=== PATIENT | male | born 1960 | race American Indian/Alaskan Native ===

== ENCOUNTER 2017-05-24 06:42 | Emergency (ER) | payer MEDICARE ==
--- NOTE | 2017-05-24 06:54 | Emergency Department Report ---
ED Neuro Deficit HPI - General Stated Complaint: UNBALANCED Time Seen by Provider: 05/24/17 06:51 Source: patient Mode of arrival: Ambulatory Limitations: No Limitations - History of Present Illness Initial Comments: 57-year-old male presents to the Hospital of possible strokelike symptoms. Upon awakening at 5:30 AM patient has slurred speech and unsteady balance. Patient also has a history of grand mal seizures and has a right-sided tongue abrasion. No signs of urinary incontinence. Last seizure was 3-4 weeks ago. Patient has been compliant with his then packed and other seizure medication. No pain reported. EMS reports no lateralizing stroke symptoms did notice unsteady gait. arrived in the ED. She states they have not lived together since February. She suspects that he had a seizure since he has had similar mental status changes after previous seizures. He reports he also has an implant in his brain and a nerve stimulator in his chest. His neurologist is [place] affiliated. - Related Data Home Medications: Home Medications Medication Instructions Recorded Confirmed Last Taken Lacosamide [Vimpat] 150 mg PO BID 05/24/17 05/24/17 Unknown amLODIPine [Norvasc] 5 mg PO DAILY 05/24/17 05/24/17 Unknown lamoTRIgine [LaMICtal] 200 mg PO BID 05/24/17 05/24/17 Unknown Allergies/Adverse Reactions: Allergies Allergy/AdvReac Type Severity Reaction Status Date / Time No Known Allergies Allergy Verified 05/24/17 06:48 ED Review of Systems ROS: Stated complaint: UNBALANCED Other details as noted in HPI Comment: All other systems reviewed and negative Other: Constitutional: No fevers chills Eyes: No eye pain visual changes ENT: No ear pain or throat pain Neck: Denies pain Respiratory: Denies cough wheezing shortness of breath Cardiovascular: Denies chest pain, palpitations, syncope GI: Denies abdominal pain, nausea, vomiting, diarrhea : Denies dysuria Musculoskeletal: Denies back pain Skin: Denies rash, lesions, erythema Neurologic: Denies headache, numbness Psychiatric: Denies suicidal ideation, hallucinations ED Past Medical Hx - Past Medical History Hx Hypertension: Yes Hx Seizures: Yes - Surgical History Additional Surgical History: cerebral shunt - Social History Smoking Status: Never Smoker Substance Use Type: None - Medications Home Medications: Home Medications Medication Instructions Recorded Confirmed Last Taken Type Lacosamide [Vimpat] 150 mg PO BID 05/24/17 05/24/17 Unknown History amLODIPine [Norvasc] 5 mg PO DAILY 05/24/17 05/24/17 Unknown History lamoTRIgine [LaMICtal] 200 mg PO BID 05/24/17 05/24/17 Unknown History ED Neuro Physical Exam - General Suspected Stroke: Yes - NIHSS Assessment Interval: Baseline 1a. Level of Consciousness: alert 1b. LOC Questions: answers correctly 1c. LOC Commands: performs tasks correctly 2. Best Gaze: normal 3. Visual: no visual loss 4. Facial Palsy: normal symmetrical movement 5b. Motor Arm Right: no drift 5a. Motor Arm Left: no drift 6a. Motor Leg Left: drift 6b. Motor Leg Right: drift 7. Limb Ataxia: absent 8. Sensory: normal 9. Best Language: no aphasia 10. Dysarthria: normal 11. Extinction/Inattention: no abnormality Total Score: 2 Stroke Severity: Minor Stroke - Other Other exam information: General: No limitations, patient is alert in no acute distress Head exam: Atraumatic, normocephalic Eyes exam: Normal appearance, pupils equal reactive to light, extraocular movements intact ENT: Moist mucous membrane, right sided superficial tongue abrasion Neck exam: Normal inspection, full range of motion, no meningismus nontender Respiratory exam: Clear to auscultation bilateral, no wheezes, rales, crackles Cardiovascular: Normal rate and rhythm, normal heart sounds Abdomen: Soft, nondistended, and nontender, with normal bowel sounds, no rebound, or guarding Extremity: Full range of motion normal inspection no deformity Back: Normal Inspection, full range of motion, no tenderness Neurologic: Alert, oriented x3, cranial nerves intact, bilateral lower extremity weakness, cannot hold antigravity movement but equal foot dorsiflexion Psychiatric: normal affect, normal mood Skin: Warm, dry, intact ED Course Vital Signs 05/24/17 05/24/17 05/24/17 07:08 07:20 07:45 Temperature 98.5 F 98.8 F Pulse Rate 75 71 96 H Respiratory 12 15 20 Rate Blood Pressure 128/76 139/78 154/70 [Left] O2 Sat by Pulse 96 96 100 Oximetry 05/24/17 09:18 Temperature 98.9 F Pulse Rate 74 Respiratory 17 Rate Blood Pressure 130/73 [Left] O2 Sat by Pulse 100 Oximetry - Reevaluation(s) Reevaluation #1: 05/24/17 11:22 Patient had a seizure after arrival and received 1 mg IV Ativan. Patient also received IV Vimpat and by mouth Lamictal during ED stay. at the bedside. She states that the since February and no longer live together. Patient to be discharged at this time and she feels comfortable monitoring the patient after discharge. She states that he has a implant in his skull and a stimulator in his chest to prevent seizures in addition to his or seizure medication. His neurologist is [place] affiliated. She is requesting by mouth Ativan to take prn seizure. In the past she has administered the Ativan to him when he appears agitated and like he is going to have a seizure. She no longer lives with him and therefore since patient is unable to tell when he is going to have a seizure I will not prescribe Ativan. He will follow up with his neurologist. - Lab Data Result diagrams: 05/24/17 06:52 05/24/17 06:52 Lab Results 05/24/17 05/24/17 05/24/17 Range/Units 06:52 06:52 06:52 WBC 7.6 (4.5-11.0) K/mm3 RBC 5.14 H (3.65-5.03) M/mm3 Hgb 13.7 (11.8-15.2) gm/dl Hct 42.1 (35.5-45.6) % MCV 82 L (84-94) fl MCH 27 L (28-32) pg MCHC 33 (32-34) % RDW 15.9 H (13.2-15.2) % Plt Count 243 (140-440) K/mm3 Lymph % (Auto) 13.8 (13.4-35.0) % Pierce % (Auto) 8.0 H (0.0-7.3) % Eos % (Auto) 0.5 (0.0-4.3) % Baso % (Auto) 0.3 (0.0-1.8) % Lymph # 1.0 L (1.2-5.4) K/mm3 Pierce # 0.6 (0.0-0.8) K/mm3 Eos # 0.0 (0.0-0.4) K/mm3 Baso # 0.0 (0.0-0.1) K/mm3 Seg Neutrophils % 77.4 H (40.0-70.0) % Seg Neutrophils # 5.9 (1.8-7.7) K/mm3 PT 12.9 (12.2-14.9) Sec. INR 0.98 (0.87-1.13) APTT 29.3 (24.2-36.6) Sec. Thrombin Time (15.1-19.6) Sec. Sodium 140 (137-145) mmol/L Potassium 4.1 (3.6-5.0) mmol/L Chloride 100.7 (98-107) mmol/L Carbon Dioxide 21 L (22-30) mmol/L Anion Gap 22 mmol/L BUN 10 (9-20) mg/dL Creatinine 1.1 (0.8-1.5) mg/dL Estimated GFR > 60 ml/min BUN/Creatinine Ratio 9.09 % Glucose 89 (75-100) mg/dL Calcium 8.9 (8.4-10.2) mg/dL Magnesium (1.7-2.3) mg/dL Troponin T < 0.010 (0.00-0.029) ng/mL 05/24/17 05/24/17 Range/Units 06:52 06:57 WBC (4.5-11.0) K/mm3 RBC (3.65-5.03) M/mm3 Hgb (11.8-15.2) gm/dl Hct (35.5-45.6) % MCV (84-94) fl MCH (28-32) pg MCHC (32-34) % RDW (13.2-15.2) % Plt Count (140-440) K/mm3 Lymph % (Auto) (13.4-35.0) % Pierce % (Auto) (0.0-7.3) % Eos % (Auto) (0.0-4.3) % Baso % (Auto) (0.0-1.8) % Lymph # (1.2-5.4) K/mm3 Pierce # (0.0-0.8) K/mm3 Eos # (0.0-0.4) K/mm3 Baso # (0.0-0.1) K/mm3 Seg Neutrophils % (40.0-70.0) % Seg Neutrophils # (1.8-7.7) K/mm3 PT (12.2-14.9) Sec. INR (0.87-1.13) APTT (24.2-36.6) Sec. Thrombin Time 15.4 (15.1-19.6) Sec. Sodium (137-145) mmol/L Potassium (3.6-5.0) mmol/L Chloride (98-107) mmol/L Carbon Dioxide (22-30) mmol/L Anion Gap mmol/L BUN (9-20) mg/dL Creatinine (0.8-1.5) mg/dL Estimated GFR ml/min BUN/Creatinine Ratio % Glucose (75-100) mg/dL Calcium (8.4-10.2) mg/dL Magnesium 2.40 H (1.7-2.3) mg/dL Troponin T (0.00-0.029) ng/mL - Radiology Data Radiology results: report reviewed CT head: Chronic findings. No acute process - Medical Decision Making Plan discharge patient home to follow up with neurologist for seizure disorder. - Differential Diagnosis seizure, stroke, ICH, encephalopathy Critical Care Time: No Critical care attestation.: If time is entered above; I have spent that time in minutes in the direct care of this critically ill patient, excluding procedure time. ED Disposition Clinical Impression: Breakthrough seizure Disposition: DC-01 TO HOME OR SELFCARE Is pt being admited?: No Does the pt Need Aspirin: No Condition: Stable Additional Instructions: Continue medications as prescribed. Please follow-up with your neurologist. Referrals: your, neurologist [Other] - 2-3 Days Time of Disposition: 11:28
[2017-05-24] MEDS ORDERED: LaMICtal PO ONE (07:03)
[2017-05-24] MEDS ORDERED: VIMPAT 150 MG in NACL 0.9% 100 ML IV ONE (07:03)
[2017-05-24 07:04] LABS: Basophils % (Auto) 0.3 % (0.0-1.8); Eosinophils % (Auto) 0.5 % (0.0-4.3); Hematocrit 42.1 % (35.5-45.6); Hemoglobin 13.7 gm/dl (11.8-15.2); Mean Corpuscular HGB Conc 33 % (32-34); Mean Corpuscular Hemoglobin 27 pg (28-32); Mean Corpuscular Volume 82 fl (84-94); Platelet Count 243 K/mm3 (140-440); Red Blood Count 5.14 M/mm3 (3.65-5.03); Red Cell Distribution Width 15.9 % (13.2-15.2); White Blood Count 7.6 K/mm3 (4.5-11.0)
--- NOTE | 2017-05-24 07:07 | Cat Scan Report ---
CT HEAD WITHOUT CONTRAST: HISTORY: CVA, seizure. There is extensive artifact generated by a left parietal neurostimulator device, correlate with surgical history. 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 This appears to be postsurgical in nature given right temporal craniotomy changes. There is moderate volume loss in the posterior fossa. No evidence for hemorrhage, mass or large area of acute ischemia on noncontrast CT. Ventricular size is within normal limits. The mastoid air cells and visualized portions of the sinuses are normal. IMPRESSION: Chronic findings as outlined above. No acute intracranial process appreciated.
[2017-05-24 07:14] LABS: Anion Gap 22 mmol/L; BUN/Creatinine Ratio 9.09; Blood Urea Nitrogen 10 mg/dL (9-20); Calcium 8.9 mg/dL (8.4-10.2); Carbon Dioxide 21 mmol/L (22-30); Chloride 100.7 mmol/L (98-107); Glucose 89 mg/dL (75-100); INR 0.98 (0.87-1.13); Partial Thromboplastin Time 29.3 Sec. (24.2-36.6); Potassium 4.1 mmol/L (3.6-5.0); Sodium 140 mmol/L (137-145)
[2017-05-24] MEDS ORDERED: ATIVAN ONE (07:34)
[2017-05-24] MEDS ORDERED: ATIVAN IV ONE (07:35)
--- NOTE | 2017-05-24 11:40 | Emergency Department Report ---
Blank Doc - Documentation Documentation: EKG: Sinus rate 76, early re-pole, no ST elevation OR. Unable to add to original chart due to [employer] error
[2017-05-24 12:08] VITALS: BP 146/86
== END 2017-05-24 12:06 | disposition home or self-care (01) ==
LOC: ED 06:42
DX: R56.9 Unspecified convulsions (principal); I10 Essential (primary) hypertension
CPT/HCPCS: 36415; 70450; 80048; 83735; 84484; 85025; 85610; 85670; 85730; 93005; 93010; 96365; 96375; 99285; C9254; J2060

== ENCOUNTER 2017-05-31 00:14 | Inpatient (IN) | payer MEDICARE ==
[2017-05-31 01:27] LABS: Hemoglobin 12.7 gm/dl (11.8-15.2); Mean Corpuscular HGB Conc 34 % (32-34); Mean Corpuscular Hemoglobin 28 pg (28-32); Mean Corpuscular Volume 82 fl (84-94); Platelet Count 216 K/mm3 (140-440); Red Blood Count 4.63 M/mm3 (3.65-5.03); White Blood Count 4.9 K/mm3 (4.5-11.0)
[2017-05-31 01:47] LABS: Anion Gap 15 mmol/L; BUN/Creatinine Ratio 12.22; Blood Urea Nitrogen 11 mg/dL (9-20); Calcium 8.8 mg/dL (8.4-10.2); Carbon Dioxide 27 mmol/L (22-30); Chloride 101.4 mmol/L (98-107); Creatine Kinase 134 units/L (55-170); Glucose 88 mg/dL (75-100); Potassium 3.6 mmol/L (3.6-5.0); Sodium 140 mmol/L (137-145)
[2017-05-31 02:00] LABS: Bilirubin,Urine NEG (Negative); Blood,Urine NEG (Negative); Ketones,Urine NEG (Negative); Leukocyte Esterase,Urine NEG (Negative); Mucus,Urine FEW /HPF; Nitrite,Urine NEG (Negative); Protein,Urine <15 mg/dL mg/dL (Negative); Urobilinogen,Urine < 2.0 mg/dL (<2.0); WBC,Urine < 1.0 /HPF (0.0-6.0)
--- NOTE | 2017-05-31 02:14 | XRay Report ---
FINAL REPORT EXAM: XR CHEST 1V AP HISTORY: Status post seizure, with possible pneumonia. TECHNIQUE: A single frontal portable radiograph of the chest was obtained. No prior studies are available for comparison. FINDINGS: The exam is somewhat limited due to low lung volumes and lordotic positioning. The cardiac silhouette and mediastinum are within normal limits. There is slight increased retrocardiac patchy opacity, which may represent minimal atelectasis and/or infiltrate. There is no pleural effusion or pneumothorax. Minimal spondylotic changes are seen in the spine. There is a presumed neurostimulator device with battery pack overlying the left upper chest, and electrodes terminating overlying the lower left cervical spine. IMPRESSION: Limited exam with possible mild left retrocardiac consolidation. Repeat PA and lateral radiographs in the department are recommended for further evaluation once the patient become stabilized.
[2017-05-31] MEDS ORDERED: VIMPAT 150 MG in NACL 0.9% 100 ML IV ONE (03:38)
--- NOTE | 2017-05-31 03:39 | Emergency Department Report ---
ED General Adult HPI - General Chief complaint: Seizure Stated complaint: AMS Time Seen by Provider: 05/31/17 03:28 Source: EMS (ems notes not available at time of chart dictation), RN notes reviewed, old records reviewed Mode of arrival: Stretcher Limitations: Altered Mental Status, Physical Limitation - History of Present Illness Initial comments: This is a 57-year-old male. He is previously unknown to me. He is brought to the hospital by EMS for possible seizure-like activity and altered mental status. The patient is very sleepy. He indicates that he feels dizzy. He cannot further describe exacerbating or relieving factors. He is somnolent but arousable No family is available at this time for collateral information or history. Patient is unable to describe exacerbating or relieving factors. -: unknown Consistency: constant Improves with: none Worsens with: none Associated Symptoms: confusion - Related Data Home Medications Medication Instructions Recorded Confirmed Last Taken Lacosamide [Vimpat] 150 mg PO BID 05/24/17 05/31/17 05/30/17 amLODIPine [Norvasc] 5 mg PO DAILY 05/24/17 05/31/17 05/30/17 lamoTRIgine [LaMICtal] 200 mg PO BID 05/24/17 05/31/17 05/31/17 Escitalopram [Lexapro] 10 mg PO DAILY 05/31/17 05/31/17 05/30/17 LORazepam [Ativan] 2 mg PO QHS 05/31/17 05/31/17 05/30/17 QUEtiapine [SEROquel] 25 mg PO BID 05/31/17 05/31/17 05/30/17 Tamsulosin [Flomax] 0.4 mg PO QDAY 05/31/17 05/31/17 05/30/17 Allergies Allergy/AdvReac Type Severity Reaction Status Date / Time No Known Allergies Allergy Verified 05/31/17 00:22 ED Review of Systems ROS: Stated complaint: AMS Other details as noted in HPI Comment: Unobtainable due to pts medical conditions Constitutional: malaise Eyes: as per HPI ENT: as per HPI Respiratory: see HPI Cardiovascular: as per HPI Gastrointestinal: as per HPI Genitourinary: as per HPI Musculoskeletal: as per HPI Skin: as per HPI Neurological: as per HPI, confusion ED Past Medical Hx - Past Medical History Previous Medical History?: Yes Hx Hypertension: Yes Hx Seizures: Yes - Surgical History Past Surgical History?: Yes Additional Surgical History: cerebral shunt - Social History Smoking Status: Unknown if ever smoked - Medications Home Medications: Home Medications Medication Instructions Recorded Confirmed Last Taken Type Lacosamide [Vimpat] 150 mg PO BID 05/24/17 05/31/17 05/30/17 History amLODIPine [Norvasc] 5 mg PO DAILY 05/24/17 05/31/17 05/30/17 History lamoTRIgine [LaMICtal] 200 mg PO BID 05/24/17 05/31/17 05/31/17 History Escitalopram [Lexapro] 10 mg PO DAILY 05/31/17 05/31/17 05/30/17 History LORazepam [Ativan] 2 mg PO QHS 05/31/17 05/31/17 05/30/17 History QUEtiapine [SEROquel] 25 mg PO BID 05/31/17 05/31/17 05/30/17 History Tamsulosin [Flomax] 0.4 mg PO QDAY 05/31/17 05/31/17 05/30/17 History ED Physical Exam - General Limitations: Altered Mental Status, Physical Limitation General appearance: in no apparent distress, lethargic - Head Head exam: Present: atraumatic, normocephalic - Eye Eye exam: Present: normal appearance, PERRL, EOMI. Absent: nystagmus - ENT ENT exam: Present: normal exam, normal orophraynx, mucous membranes moist, normal external ear exam - Neck Neck exam: Present: normal inspection, full ROM - Respiratory Respiratory exam: Present: normal lung sounds bilaterally. Absent: respiratory distress, wheezes, rales, rhonchi, stridor, decreased breath sounds - Cardiovascular Cardiovascular Exam: Present: regular rate, normal rhythm, normal heart sounds. Absent: systolic murmur, diastolic murmur, rubs, gallop - GI/Abdominal GI/Abdominal exam: Present: soft, normal bowel sounds. Absent: distended, tenderness, guarding, rebound, rigid, pulsatile mass - Rectal Rectal exam: Present: deferred - Extremities Exam Extremities exam: Present: normal inspection, normal capillary refill. Absent: pedal edema, joint swelling, calf tenderness - Back Exam Back exam: Present: normal inspection. Absent: tenderness, CVA tenderness (R), paraspinal tenderness - Neurological Exam Neurological exam: Present: altered, other (patient moves 4 extremities to command. He is somnolent but arousable. He'll answer to his name and follows some simple commands. He knows that he is at a hospital. He does not know the date. He does not know the month. He does not of the year.) - Psychiatric Psychiatric exam: Present: normal affect, normal mood - Skin Skin exam: Present: warm, dry, intact, normal color. Absent: rash ED Course Vital Signs 05/31/17 05/31/17 05/31/17 00:17 00:19 00:21 Temperature Pulse Rate 65 65 64 Respiratory 14 15 14 Rate Blood Pressure 142/77 142/77 O2 Sat by Pulse 93 97 Oximetry 05/31/17 05/31/17 05/31/17 00:23 00:31 00:35 Temperature Pulse Rate 63 65 Respiratory 14 15 18 Rate Blood Pressure 142/77 142/77 O2 Sat by Pulse 97 95 97 Oximetry 05/31/17 05/31/17 05/31/17 01:00 01:31 01:34 Temperature 97.6 F Pulse Rate 61 61 Respiratory 14 13 Rate Blood Pressure 135/66 142/77 O2 Sat by Pulse 96 98 Oximetry 05/31/17 05/31/17 05/31/17 02:00 02:31 03:01 Temperature Pulse Rate 55 L 57 L 56 L Respiratory 13 13 13 Rate Blood Pressure 151/80 151/80 119/66 O2 Sat by Pulse 95 98 96 Oximetry 05/31/17 03:56 Temperature 96.5 F L Pulse Rate Respiratory Rate Blood Pressure O2 Sat by Pulse Oximetry - Reevaluation(s) Reevaluation #1: 05/31/17 05:55 differential diagnosis: Intracranial injury, cervical spine injury, prolonged post ictal state, toxic encephalopathy, metabolic encephalopathy, pneumonia, urinary tract infection Assessment and plan: 57-year-old male with altered mental status, possible prolonged postictal state. Contacted spouses listed phone number, no answer, left voicemail for call back. EMS documentation not available at this time. History limited as there is currently no collateral information. Laboratory studies reviewed, and are unremarkable. Clinically doubt pneumonia, but we'll cover empirically with doxycycline. Noncontrast CT scan of the brain is cervical spine are pending. Of note, patient recently seen at this facility, had a noncontrast CT scan of the brain which was negative for chronic findings. Reevaluation #2: 05/31/17 06:[address] scan of the brain and cervical spine negative for traumatic findings. Chronic findings are noted. Patient still altered. The patient's ex- calls back. Ms. Apurva Crain indicates the patient is typically lucid, conversant, and conversational. She indicates that this is not the patient's baseline, but she is uncertain exactly as to what happened to the patient. Patient has been in the ER for almost 7 hours. Given persistent altered mental status, patient will be admitted to the hospital for further observation, evaluation and management. He will be covered empirically with doxycycline for possible early pneumonia as demonstrated on chest x-ray. He is afebrile. Case is presented to the Hospital physician, Dr. Adamson, she accepts the patient to her service. ED Medical Decision Making - Lab Data Result diagrams: 05/31/17 01:13 05/31/17 01:13 Vital Signs 05/31/17 05/31/17 05/31/17 00:17 00:19 00:21 Temperature Pulse Rate 65 65 64 Respiratory 14 15 14 Rate Blood Pressure 142/77 142/77 O2 Sat by Pulse 93 97 Oximetry 05/31/17 05/31/17 05/31/17 00:23 00:31 00:35 Temperature Pulse Rate 63 65 Respiratory 14 15 18 Rate Blood Pressure 142/77 142/77 O2 Sat by Pulse 97 95 97 Oximetry 05/31/17 05/31/17 05/31/17 01:00 01:31 01:34 Temperature 97.6 F Pulse Rate 61 61 Respiratory 14 13 Rate Blood Pressure 135/66 142/77 O2 Sat by Pulse 96 98 Oximetry 05/31/17 05/31/17 05/31/17 02:00 02:31 03:01 Temperature Pulse Rate 55 L 57 L 56 L Respiratory 13 13 13 Rate Blood Pressure 151/80 151/80 119/66 O2 Sat by Pulse 95 98 96 Oximetry 05/31/17 03:56 Temperature 96.5 F L Pulse Rate Respiratory Rate Blood Pressure O2 Sat by Pulse Oximetry Lab Results 05/31/17 05/31/17 05/31/17 Range/Units 01:13 01:13 01:13 WBC 4.9 (4.5-11.0) K/mm3 RBC 4.63 (3.65-5.03) M/mm3 Hgb 12.7 (11.8-15.2) gm/dl Hct 38.0 (35.5-45.6) % MCV 82 L (84-94) fl MCH 28 (28-32) pg MCHC 34 (32-34) % RDW 16.0 H (13.2-15.2) % Plt Count 216 (140-440) K/mm3 Sodium 140 (137-145) mmol/L Potassium 3.6 (3.6-5.0) mmol/L Chloride 101.4 (98-107) mmol/L Carbon Dioxide 27 (22-30) mmol/L Anion Gap 15 mmol/L BUN 11 (9-20) mg/dL Creatinine 0.9 (0.8-1.5) mg/dL Estimated GFR > 60 ml/min BUN/Creatinine Ratio 12.22 % Glucose 88 (75-100) mg/dL Calcium 8.8 (8.4-10.2) mg/dL Magnesium (1.7-2.3) mg/dL Ammonia (25-60) umol/L Total Creatine Kinase 134 (55-170) units/L TSH (0.270-4.200) mlU/mL Urine Color (Yellow) Urine Turbidity (Clear) Urine pH (5.0-7.0) Ur Specific [place] (1.003-1.030) Urine Protein (Negative) mg/dL Urine Glucose (UA) (Negative) mg/dL Urine Ketones (Negative) mg/dL Urine Blood (Negative) Urine Nitrite (Negative) Urine Bilirubin (Negative) Urine Urobilinogen (<2.0) mg/dL Ur Leukocyte Esterase (Negative) Urine WBC (Auto) (0.0-6.0) /HPF Urine RBC (Auto) (0.0-6.0) /HPF Urine Mucus /HPF Salicylates (2.8-20.0) mg/dL Urine Opiates Screen Urine Methadone Screen Acetaminophen (10.0-30.0) ug/mL Ur Barbiturates Screen Ur Phencyclidine Scrn Ur Amphetamines Screen U Benzodiazepines Scrn Urine Cocaine Screen U Marijuana (THC) Screen Drugs of Abuse Note Plasma/Serum Alcohol < 0.01 (0-0.07) gm% 05/31/17 05/31/17 05/31/17 Range/Units 01:34 04:04 04:04 WBC (4.5-11.0) K/mm3 RBC (3.65-5.03) M/mm3 Hgb (11.8-15.2) gm/dl Hct (35.5-45.6) % MCV (84-94) fl MCH (28-32) pg MCHC (32-34) % RDW (13.2-15.2) % Plt Count (140-440) K/mm3 Sodium (137-145) mmol/L Potassium (3.6-5.0) mmol/L Chloride (98-107) mmol/L Carbon Dioxide (22-30) mmol/L Anion Gap mmol/L BUN (9-20) mg/dL Creatinine (0.8-1.5) mg/dL Estimated GFR ml/min BUN/Creatinine Ratio % Glucose (75-100) mg/dL Calcium (8.4-10.2) mg/dL Magnesium 2.00 (1.7-2.3) mg/dL Ammonia 53.0 (25-60) umol/L Total Creatine Kinase (55-170) units/L TSH (0.270-4.200) mlU/mL Urine Color Yellow (Yellow) Urine Turbidity Clear (Clear) Urine pH 7.0 (5.0-7.0) Ur Specific [place] 1.012 (1.003-1.030) Urine Protein <15 mg/dl (Negative) mg/dL Urine Glucose (UA) Neg (Negative) mg/dL Urine Ketones Neg (Negative) mg/dL Urine Blood Neg (Negative) Urine Nitrite Neg (Negative) Urine Bilirubin Neg (Negative) Urine Urobilinogen < 2.0 (<2.0) mg/dL Ur Leukocyte Esterase Neg (Negative) Urine WBC (Auto) < 1.0 (0.0-6.0) /HPF Urine RBC (Auto) 1.0 (0.0-6.0) /HPF Urine Mucus Few /HPF Salicylates (2.8-20.0) mg/dL Urine Opiates Screen Urine Methadone Screen Acetaminophen (10.0-30.0) ug/mL Ur Barbiturates Screen Ur Phencyclidine Scrn Ur Amphetamines Screen U Benzodiazepines Scrn Urine Cocaine Screen U Marijuana (THC) Screen Drugs of Abuse Note Plasma/Serum Alcohol (0-0.07) gm% 05/31/17 05/31/17 05/31/17 Range/Units 04:04 04:04 04:04 WBC (4.5-11.0) K/mm3 RBC (3.65-5.03) M/mm3 Hgb (11.8-15.2) gm/dl Hct (35.5-45.6) % MCV (84-94) fl MCH (28-32) pg MCHC (32-34) % RDW (13.2-15.2) % Plt Count (140-440) K/mm3 Sodium (137-145) mmol/L Potassium (3.6-5.0) mmol/L Chloride (98-107) mmol/L Carbon Dioxide (22-30) mmol/L Anion Gap mmol/L BUN (9-20) mg/dL Creatinine (0.8-1.5) mg/dL Estimated GFR ml/min BUN/Creatinine Ratio % Glucose (75-100) mg/dL Calcium (8.4-10.2) mg/dL Magnesium (1.7-2.3) mg/dL Ammonia (25-60) umol/L Total Creatine Kinase (55-170) units/L TSH 1.390 (0.270-4.200) mlU/mL Urine Color (Yellow) Urine Turbidity (Clear) Urine pH (5.0-7.0) Ur Specific [place] (1.003-1.030) Urine Protein (Negative) mg/dL Urine Glucose (UA) (Negative) mg/dL Urine Ketones (Negative) mg/dL Urine Blood (Negative) Urine Nitrite (Negative) Urine Bilirubin (Negative) Urine Urobilinogen (<2.0) mg/dL Ur Leukocyte Esterase (Negative) Urine WBC (Auto) (0.0-6.0) /HPF Urine RBC (Auto) (0.0-6.0) /HPF Urine Mucus /HPF Salicylates < 0.3 L (2.8-20.0) mg/dL Urine Opiates Screen Urine Methadone Screen Acetaminophen < 15.0 (10.0-30.0) ug/mL Ur Barbiturates Screen Ur Phencyclidine Scrn Ur Amphetamines Screen U Benzodiazepines Scrn Urine Cocaine Screen U Marijuana (THC) Screen Drugs of Abuse Note Plasma/Serum Alcohol (0-0.07) gm% 05/31/17 Range/Units 04:05 WBC (4.5-11.0) K/mm3 RBC (3.65-5.03) M/mm3 Hgb (11.8-15.2) gm/dl Hct (35.5-45.6) % MCV (84-94) fl MCH (28-32) pg MCHC (32-34) % RDW (13.2-15.2) % Plt Count (140-440) K/mm3 Sodium (137-145) mmol/L Potassium (3.6-5.0) mmol/L Chloride (98-107) mmol/L Carbon Dioxide (22-30) mmol/L Anion Gap mmol/L BUN (9-20) mg/dL Creatinine (0.8-1.5) mg/dL Estimated GFR ml/min BUN/Creatinine Ratio % Glucose (75-100) mg/dL Calcium (8.4-10.2) mg/dL Magnesium (1.7-2.3) mg/dL Ammonia (25-60) umol/L Total Creatine Kinase (55-170) units/L TSH (0.270-4.200) mlU/mL Urine Color (Yellow) Urine Turbidity (Clear) Urine pH (5.0-7.0) Ur Specific [place] (1.003-1.030) Urine Protein (Negative) mg/dL Urine Glucose (UA) (Negative) mg/dL Urine Ketones (Negative) mg/dL Urine Blood (Negative) Urine Nitrite (Negative) Urine Bilirubin (Negative) Urine Urobilinogen (<2.0) mg/dL Ur Leukocyte Esterase (Negative) Urine WBC (Auto) (0.0-6.0) /HPF Urine RBC (Auto) (0.0-6.0) /HPF Urine Mucus /HPF Salicylates (2.8-20.0) mg/dL Urine Opiates Screen Presumptive negative Urine Methadone Screen Presumptive negative Acetaminophen (10.0-30.0) ug/mL Ur Barbiturates Screen Presumptive negative Ur Phencyclidine Scrn Presumptive negative Ur Amphetamines Screen Presumptive negative U Benzodiazepines Scrn Presumptive negative Urine Cocaine Screen Presumptive negative U Marijuana (THC) Screen Presumptive negative Drugs of Abuse Note Disclamer Plasma/Serum Alcohol (0-0.07) gm% - EKG Data -: EKG Interpreted by Me Rate: bradycardia - EKG Data 05/31/17 05:57 sinus bradycardia, 57 bpm, normal intervals, normal axis, not morphologically consistent with STEMI. - Radiology Data Radiology results: pending, report reviewed, image reviewed Portable single x-ray of the chest demonstrated possible left-sided retrocardiac opacity, left sided neurostimulator device, limited by technique. Critical care attestation.: If time is entered above; I have spent that time in minutes in the direct care of this critically ill patient, excluding procedure time. ED Disposition Clinical Impression: Altered mental status Disposition: [id number] OP ADMIT IP TO THIS HOSP Is pt being admited?: Yes Condition: Good Referrals: PRIMARY CARE, [Primary Care Provider] - 3-5 Days
[2017-05-31 04:12] LABS: Urine Drugs of Abuse Note Disclamer
[2017-05-31] MEDS ORDERED: DOXYCYCLINE HYCLATE 100 MG in NACL 0.9% 250ML 250 ML IV ONE (04:57)
[2017-05-31] MEDS ORDERED: ZITHROMAX 500 MG in NACL 0.9% 250ML 250 ML IV ONE (04:57)
--- NOTE | 2017-05-31 05:58 | Cat Scan Report ---
FINAL REPORT EXAM: CT HEAD/BRAIN W/O CONTRAST HISTORY: Altered mental status, question seizure. TECHNIQUE: Unenhanced axial CT images of the brain were obtained. Comparison is made with prior study 05/24/2017. 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 A left parietal presumed neurostimulator device is again noted, with its leads terminating in the region of the left lateral ventricle and left middle cranial fossa, unchanged in configuration. There is associated extensive streak artifact=. There is volume loss within the posterior fossa. There is no mass, mass effect, midline shift, hydrocephalus, or acute intracranial hemorrhage. The overall appearance of the brain is not significantly changed compared to recent exam 05/24/2017. There is partial opacification of scattered bilateral ethmoid air cells, stable. The remainder of the visualized paranasal sinuses and mastoid air cells are clear. There is no skull fracture or other osseous abnormality. IMPRESSION: No acute intracranial abnormality. Postsurgical and chronic findings, overall without significant interval change compared to 05/24/2017.
--- NOTE | 2017-05-31 06:15 | Cat Scan Report ---
FINAL REPORT EXAM: CT CERVICAL SPINE W/O CONTRAST. HISTORY: Altered mental status, question seizure. TECHNIQUE: Unenhanced axial CT images of the cervical spine were obtained. Coronal and sagittal reformatted images were also obtained. No prior studies are available for comparison. FINDINGS: The cervical vertebral bodies demonstrate normal height and morphology. There is no fracture or spondylolisthesis. The prevertebral soft tissues are within normal limits. There is a 5-6 mm curvilinear chronic appearing ossific body adjacent to the tip of the C7 posterior spinous process, representing degenerative change or sequela of remote injury. There is moderate loss of disc height at C5-6 and C6-7, where there is prominent anterior and posterior marginal spurring. There is also degenerative ossification at the left anterior aspect of the C4-5 disc space. At C3-4, there is bilateral foraminal spurring and uncovertebral hypertrophy, with resultant moderate bilateral neural foraminal narrowing. At C4-5, there is mild right foraminal spurring and uncovertebral hypertrophy, with resultant moderate right neural foraminal narrowing. At C5-6, there is a diffuse disc osteophyte complex, eccentric to the right, with right uncovertebral hypertrophy. There is resultant severe right neural foraminal narrowing. At C6-7, there is a moderate left paracentral disc osteophyte complex, left uncovertebral hypertrophy. There is mild flattening of the left anterior thecal sac. There is mild left lateral recess narrowing and mild left neural foraminal narrowing. The remainder of the cervical levels are within normal limits for patient's age. There are metallic leads terminating in the soft tissues overlying the left thyroid cartilage. There is mosaic ground-glass attenuation of the parenchyma seen in the visualized right lung apex, indicative nonspecific small vessel and/or small airways disease. IMPRESSION: 1. No fracture or spondylolisthesis. 2. Moderate spondylotic and degenerative changes as described.
[2017-05-31] MEDS ORDERED: TYLENOL PO PRN (07:42)
[2017-05-31] MEDS ORDERED: DULCOLAX PR PRN (07:42)
--- NOTE | 2017-05-31 07:49 | History and Physical Report ---
History of Present Illness Date of examination: 05/31/17 Date of admission: 05/31/2017 Chief complaint: Seizure History of present illness: Patient is a 57 years old with past medical history of grand mal seizures present his emergency department presents by EMS for post ictal and altered mental status. Patient alerted mental status, therefore poor historian. Patient does not remembered having seizure, they only thing can recall was being at home and having difficulty of walking. Upon my examination patient was very sleepy, he cannot describe the dizziness, exacerbating or relieving factors. I was not able to obtain further history. Past History Past Medical History: seizures Past Surgical History: Other (KIARA) Social history: other (KIARA) Family history: other (KIARA) Medications and Allergies Allergies Allergy/AdvReac Type Severity Reaction Status Date / Time No Known Allergies Allergy Verified 05/31/17 00:22 Home Medications Medication Instructions Recorded Confirmed Last Taken Type Escitalopram [Lexapro] 10 mg PO DAILY 05/31/17 05/31/17 05/30/17 History LORazepam [Ativan] 2 mg PO QHS 05/31/17 05/31/17 05/30/17 History QUEtiapine [SEROquel] 25 mg PO BID 05/31/17 05/31/17 05/30/17 History Lacosamide [Vimpat] 150 mg PO BID 90 Days 06/01/17 Unknown Rx Tamsulosin [Flomax] 0.4 mg PO QDAY #90 capsule 06/01/17 Unknown Rx amLODIPine [Norvasc] 5 mg PO DAILY #90 tablet 06/01/17 Unknown Rx hydrALAZINE [Apresoline INJ] 10 mg IV Q4HR PRN #90 vial 06/01/17 Unknown Rx lamoTRIgine [LaMICtal] 200 mg PO BID 90 Days 06/01/17 Unknown Rx Active Meds: Active Medications Acetaminophen (Tylenol) 650 mg PO Q4H PRN PRN Reason: Pain MILD(1-3)/Fever >100.5/DUNLAP Amlodipine Besylate (Norvasc) 5 mg PO DAILY URIAH Bisacodyl (Dulcolax) 10 mg [place] QDAY PRN PRN Reason: Constipation unrelieved by MOM Enoxaparin Sodium (Lovenox) 40 mg SUB-Q QDAY URIAH Escitalopram Oxalate (Lexapro) 10 mg PO DAILY URIAH Dextrose/Sodium Chloride (D5ns) 1,000 mls @ 75 mls/hr IV DIRECT URIAH Azithromycin 500 mg/ Sodium (Chloride) 250 mls @ 250 mls/hr IV Q24HR URIAH Ceftriaxone Sodium (Rocephin/Ns 1 Gm/50 Ml) 1 gm in 50 mls @ 100 mls/hr IV Q24HR URIAH PRN Reason: Protocol Miscellaneous Medication (Lacosamide [Vimpat]) 150 mg PO BID URIAH Miscellaneous Medication (Lamotrigine [Lamictal]) 200 mg PO BID URIAH Tamsulosin HCl (Flomax) 0.4 mg PO QDAY URIAH Review of Systems ROS unobtainable: due to mental status Exam - Constitutional Vitals: Temp Pulse Resp BP Pulse Ox 96.5 F L 56 L 13 119/66 96 05/31/17 03:56 05/31/17 03:01 05/31/17 03:01 05/31/17 03:01 05/31/17 03:01 General appearance: Present: no acute distress - EENT Eyes: Present: PERRL ENT: hearing intact - Neck Neck: Present: supple - Respiratory Respiratory effort: normal Respiratory: bilateral: CTA - Cardiovascular Rhythm: regular Heart Sounds: Present: S1 & S2 - Extremities Extremities: no ischemia Peripheral Pulses: within normal limits - Abdominal General gastrointestinal: Present: soft, non-tender Male genitourinary: Present: deferred - Rectal Rectal Exam: deferred - Integumentary Integumentary: Present: clear, warm, dry - Musculoskeletal Musculoskeletal: strength equal bilaterally - Psychiatric Psychiatric: other (Confused ) - Neurologic Neurologic: moves all extremities, other (Postictal state ) - Allied Health Allied health notes reviewed: nursing Results - Labs CBC & Chem 7: 06/01/17 05:02 06/01/17 05:02 Labs: Laboratory Last Values WBC 4.9 K/mm3 (4.5-11.0) 05/31/17 01:13 RBC 4.63 M/mm3 (3.65-5.03) 05/31/17 01:13 Hgb 12.7 gm/dl (11.8-15.2) 05/31/17 01:13 Hct 38.0 % (35.5-45.6) 05/31/17 01:13 MCV 82 fl (84-94) L 05/31/17 01:13 MCH 28 pg (28-32) 05/31/17 01:13 MCHC 34 % (32-34) 05/31/17 01:13 RDW 16.0 % (13.2-15.2) H 05/31/17 01:13 Plt Count 216 K/mm3 (140-440) 05/31/17 01:13 Sodium 140 mmol/L (137-145) 05/31/17 01:13 Potassium 3.6 mmol/L (3.6-5.0) 05/31/17 01:13 Chloride 101.4 mmol/L (98-107) 05/31/17 01:13 Carbon Dioxide 27 mmol/L (22-30) 05/31/17 01:13 Anion Gap 15 mmol/L 05/31/17 01:13 BUN 11 mg/dL (9-20) 05/31/17 01:13 Creatinine 0.9 mg/dL (0.8-1.5) 05/31/17 01:13 Estimated GFR > 60 ml/min 05/31/17 01:13 BUN/Creatinine Ratio 12.22 % 05/31/17 01:13 Glucose 88 mg/dL (75-100) 05/31/17 01:13 Calcium 8.8 mg/dL (8.4-10.2) 05/31/17 01:13 Magnesium 2.00 mg/dL (1.7-2.3) 05/31/17 04:04 Ammonia 53.0 umol/L (25-60) 05/31/17 04:04 Total Creatine Kinase 134 units/L (55-170) 05/31/17 01:13 TSH 1.390 mlU/mL (0.270-4.200) 05/31/17 04:04 Urine Color Yellow (Yellow) 05/31/17 01:34 Urine Turbidity Clear (Clear) 05/31/17 01:34 Urine pH 7.0 (5.0-7.0) 05/31/17 01:34 Ur Specific [place] 1.012 (1.003-1.030) 05/31/17 01:34 Urine Protein <15 mg/dl mg/dL (Negative) 05/31/17 01:34 Urine Glucose (UA) Neg mg/dL (Negative) 05/31/17 01:34 Urine Ketones Neg mg/dL (Negative) 05/31/17 01:34 Urine Blood Neg (Negative) 05/31/17 01:34 Urine Nitrite Neg (Negative) 05/31/17 01:34 Urine Bilirubin Neg (Negative) 05/31/17 01:34 Urine Urobilinogen < 2.0 mg/dL (<2.0) 05/31/17 01:34 Ur Leukocyte Esterase Neg (Negative) 05/31/17 01:34 Urine WBC (Auto) < 1.0 /HPF (0.0-6.0) 05/31/17 01:34 Urine RBC (Auto) 1.0 /HPF (0.0-6.0) 05/31/17 01:34 Urine Mucus Few /HPF 05/31/17 01:34 Salicylates < 0.3 mg/dL (2.8-20.0) L 05/31/17 04:04 Urine Opiates Screen Presumptive negative 05/31/17 04:05 Urine Methadone Screen Presumptive negative 05/31/17 04:05 Acetaminophen < 15.0 ug/mL (10.0-30.0) 05/31/17 04:04 Ur Barbiturates Screen Presumptive negative 05/31/17 04:05 Ur Phencyclidine Scrn Presumptive negative 05/31/17 04:05 Ur Amphetamines Screen Presumptive negative 05/31/17 04:05 U Benzodiazepines Scrn Presumptive negative 05/31/17 04:05 Urine Cocaine Screen Presumptive negative 05/31/17 04:05 U Marijuana (THC) Screen Presumptive negative 05/31/17 04:05 Drugs of Abuse Note Disclamer 05/31/17 04:05 Plasma/Serum Alcohol < 0.01 gm% (0-0.07) 05/31/17 01:13 Assessment and Plan Assessment and plan: Postictal state CT of the head shows no acute intracranial abnormality. MRI of the brain/EEG ordered Started on home antiseizure Vimpat and Lamictal IV fluid Neurology consulted Metabolic encephalopathy Mostlikely due postictal state CT of the head shows no acute intracranial abnormality. Treat underline cause Closely monitor patient. Hypertension Resume home antihypertensive medication IV hydralazine for SBP>106 DVT prophylaxis Lovenox Advance Directives: Yes VTE prophylaxis?: Chemical Contraindication Mechanical VTE Prophylaxis: Treatment Not Indicated Plan of care discussed with patient/family: Yes
--- NOTE | 2017-05-31 08:00 | Admit Criteria Form ---
Admission Criteria Documentation: MENTAL STATUS CHANGE Clinical Indications for Inpatient Care (Place 'X' for any and all applicable criteria): Ongoing inpatient care may be needed for 1 or more of the following(1)(2)(3)(5)( 6): [X]I. Suspected serious etiology (eg, medical disorder, [employer]SC[employer] event) of altered mental status [ ]II. Danger to self or others not manageable at lower level of care [ ]III. Grave disability (eg, inability to perform self care necessary at lower level of care) [ ]IV. Agitation or inappropriate behavior interfering with care for primary condition (eg, attempting to discontinue lines or drains prematurely, unable to cooperate with respiratory care) [ ]V. Delirium [A] [D][E] as described by 1 or more of the following(26): [ ]a) Delirium due to alcohol or sedative [F] withdrawal [ ]b) Delirium of uncertain etiology that has not responded to appropriate empiric treatment [ ]c) Delirium that prevents performance of a life-sustaining function (eg, feeding or hydrating oneself) [ ]. General contraindications and/or Inappropriate clinical situations for Observational Care in patients with Mental Status Change, when ANY ONE of the following is required: [ ]a) Prediction of prolongation of LOS based on ANY ONE of the following may be considered as a contraindication for observational care 2, 3, 4, 5, 6, 7, 8, 9, 10, 11 [ ]i) Age > 65 yrs. [ ]ii) Patient arriving by ambulance [ ]iii) Patient with high acuity [ ]iv) Patient requiring vital sign monitoring [ ]v) Patient on IV medication [ ]b) Systolic blood pressures greater than or equal to 180mmHg 3, 12 [ ]c) Patient with altered mental status including delirium and other alteration of consciousness, (3) [ ]d) Patient whose discharge disposition will be to a nursing home home or rehabilitation home should not be managed in Emergency Department Observation Unit. CMS rule requires 3 days hospital stay before such placement.3,13 [ ]e) Patient with failure to thrive due to broad array of etiologies 3,16,17 [ ]f) Inability to ambulate 3,14 Extended stay beyond goal length of stay for the primary condition may be needed until ALL of the following are present(3)(5): [ ]a) Underlying medical etiology of mental status change is absent, or has been established and adequately treated [ ]b) Danger to self or others is absent or manageable at lower level of care. [ ]c) Behavior crisis management, including physical or chemical restraints, is not required or available at lower level of car [ ]d) Substance or alcohol withdrawal is absent or manageable at lower level of care. [ ]e) Behavioral symptoms (eg, agitation, somnolence, inappropriate behavior) are absent, or are manageable at lower level of care. The original [facility] [employer] content created by [facility] [employer] has been revised. The portions of the content which have been revised are identified through the use of italic text or in bold, and [facility] has neither reviewed nor approved the modified material. All other unmodified content is copyright [facility] [employer]. Please see references footnoted in the original [facility] edition 2016 Admission Criteria Met: Yes
[2017-05-31] MEDS ORDERED: ZOFRAN IM PRN (08:45)
[2017-05-31] MEDS ORDERED: NON-FORMULARY (Lamotrigine [Lamictal] 200 MG) PO SCH (10:00)
[2017-05-31] MEDS ORDERED: LACOSAMIDE 150 MG PO SCH (10:00)
[2017-05-31] MEDS ORDERED: ROCEPHIN/NS 1 GM/50 ML 1 GM/50 ML BAG IV SCH (10:00)
[2017-05-31] MEDS ORDERED: ZITHROMAX 500 MG in NACL 0.9% 250ML 250 ML IV SCH (10:00)
[2017-05-31] MEDS: D5NS 1,000 ML IV SCH (10:01)
[2017-05-31] MEDS: LOVENOX SUB-Q SCH (10:02)
--- NOTE | 2017-05-31 11:26 | XRay Report ---
XRAY CHEST TWO VIEWS: 05/31/17 10:58 CLINICAL: Status post seizure with possible pneumonia. COMPARISON: Same day 00:54 FINDINGS: The lungs are better expanded and are clear. A neurostimulator overlies left upper lobe on the frontal view.Normal heart and pulmonary vessels.The bones and soft tissues are unremarkable. IMPRESSION: Normal chest.No pneumonia.
[2017-05-31] MEDS ORDERED: ATIVAN IV PRN (11:31)
--- NOTE | 2017-05-31 12:56 | Consultation ---
History of Present Illness - Reason for Consult Consult date: 05/31/17 seizures - History of Present Illness prior hx of poorly controlled epilepsy on lamictal and vimpat he is not sure of the doses will check his old imaging studies dx appears to be complex partial seizures as he has aura no evidence of physical injury spoke to nurse Crouch Past History Past Medical History: seizures Past Surgical History: Other (KIARA) Social history: other (KIARA) Family history: other (KIARA) Medications and Allergies Allergies Allergy/AdvReac Type Severity Reaction Status Date / Time No Known Allergies Allergy Verified 05/31/17 00:22 Home Medications Medication Instructions Recorded Confirmed Last Taken Type Lacosamide [Vimpat] 150 mg PO BID 05/24/17 05/31/17 05/30/17 History amLODIPine [Norvasc] 5 mg PO DAILY 05/24/17 05/31/17 05/30/17 History lamoTRIgine [LaMICtal] 200 mg PO BID 05/24/17 05/31/17 05/31/17 History Escitalopram [Lexapro] 10 mg PO DAILY 05/31/17 05/31/17 05/30/17 History LORazepam [Ativan] 2 mg PO QHS 05/31/17 05/31/17 05/30/17 History QUEtiapine [SEROquel] 25 mg PO BID 05/31/17 05/31/17 05/30/17 History Tamsulosin [Flomax] 0.4 mg PO QDAY 05/31/17 05/31/17 05/30/17 History Active Meds: Active Medications Acetaminophen (Tylenol) 650 mg PO Q4H PRN PRN Reason: Pain MILD(1-3)/Fever >100.5/DUNLAP Amlodipine Besylate (Norvasc) 5 mg PO DAILY URIAH Bisacodyl (Dulcolax) 10 mg [place] QDAY PRN PRN Reason: Constipation unrelieved by MOM Enoxaparin Sodium (Lovenox) 40 mg SUB-Q QDAY URIAH Last Admin: 05/31/17 10:02 Dose: 40 mg Escitalopram Oxalate (Lexapro) 10 mg PO DAILY URIAH Dextrose/Sodium Chloride (D5ns) 1,000 mls @ 75 mls/hr IV DIRECT URIAH Last Admin: 05/31/17 10:01 Dose: 75 mls/hr Azithromycin 500 mg/ Sodium (Chloride) 250 mls @ 250 mls/hr IV Q24HR URIAH Ceftriaxone Sodium (Rocephin/Ns 1 Gm/50 Ml) 1 gm in 50 mls @ 100 mls/hr IV Q24HR URIAH PRN Reason: Protocol Last Admin: 05/31/17 10:01 Dose: 100 mls/hr Lacosamide (Vimpat) 150 mg PO BID URIAH Lamotrigine (Lamictal) 200 mg PO BID URIAH Lorazepam (Ativan) 2 mg IV Q4H PRN PRN Reason: Seizures Ondansetron HCl (Zofran) 4 mg IM Q4H PRN PRN Reason: Nausea And Vomiting Tamsulosin HCl (Flomax) 0.4 mg PO QDAY [facility] Exam - Constitutional Vitals: Temp Pulse Resp BP Pulse Ox 97.8 F 57 L 16 163/87 98 05/31/17 09:45 05/31/17 09:45 05/31/17 09:45 05/31/17 09:45 05/31/17 09:45 Results - Labs CBC & Chem 7: 05/31/17 01:13 05/31/17 01:13
[2017-05-31] MEDS ORDERED: APRESOLINE IV PRN (13:13)
[2017-05-31] MEDS: LEXAPRO PO SCH (14:20)
[2017-05-31] MEDS: VIMPAT PO SCH ×2 (14:20→22:20)
[2017-05-31] MEDS: NORVASC PO SCH (14:21)
[2017-05-31] MEDS: LaMICtal PO SCH ×2 (14:21→22:20)
[2017-05-31] MEDS: FLOMAX PO SCH (14:21)
[2017-06-01] MEDS: D5NS 1,000 ML IV SCH (04:19)
[2017-06-01 05:23] LABS: Basophils % (Auto) 0.8 % (0.0-1.8); Eosinophils % (Auto) 4.2 % (0.0-4.3); Hematocrit 40.1 % (35.5-45.6); Hemoglobin 13.2 gm/dl (11.8-15.2); Mean Corpuscular HGB Conc 33 % (32-34); Mean Corpuscular Hemoglobin 27 pg (28-32); Mean Corpuscular Volume 83 fl (84-94); Platelet Count 222 K/mm3 (140-440); Red Blood Count 4.86 M/mm3 (3.65-5.03); Red Cell Distribution Width 15.8 % (13.2-15.2); White Blood Count 5.3 K/mm3 (4.5-11.0)
[2017-06-01 05:42] LABS: Anion Gap 14 mmol/L; BUN/Creatinine Ratio 13.33; Blood Urea Nitrogen 12 mg/dL (9-20); Calcium 8.6 mg/dL (8.4-10.2); Carbon Dioxide 26 mmol/L (22-30); Chloride 102.9 mmol/L (98-107); Glucose 110 mg/dL (75-100); Sodium 139 mmol/L (137-145)
--- NOTE | 2017-06-01 08:33 | Progress Note ---
Hospitalist Physical - Constitutional Vitals: Temp Pulse Resp BP Pulse Ox 98.1 F 55 L 18 136/67 96 05/31/17 23:00 05/31/17 23:00 05/31/17 23:00 05/31/17 23:00 05/31/17 23:00 General appearance: Present: no acute distress Results - Labs CBC & Chem 7: 06/01/17 05:02 06/01/17 05:02 Labs: Laboratory Last Values WBC 5.3 K/mm3 (4.5-11.0) 06/01/17 05:02 RBC 4.86 M/mm3 (3.65-5.03) 06/01/17 05:02 Hgb 13.2 gm/dl (11.8-15.2) 06/01/17 05:02 Hct 40.1 % (35.5-45.6) 06/01/17 05:02 MCV 83 fl (84-94) L 06/01/17 05:02 MCH 27 pg (28-32) L 06/01/17 05:02 MCHC 33 % (32-34) 06/01/17 05:02 RDW 15.8 % (13.2-15.2) H 06/01/17 05:02 Plt Count 222 K/mm3 (140-440) 06/01/17 05:02 Lymph % (Auto) 48.4 % (13.4-35.0) H 06/01/17 05:02 [place] % (Auto) 8.6 % (0.0-7.3) H 06/01/17 05:02 Eos % (Auto) 4.2 % (0.0-4.3) 06/01/17 05:02 Baso % (Auto) 0.8 % (0.0-1.8) 06/01/17 05:02 Lymph # 2.6 K/mm3 (1.2-5.4) 06/01/17 05:02 [place] # 0.5 K/mm3 (0.0-0.8) 06/01/17 05:02 Eos # 0.2 K/mm3 (0.0-0.4) 06/01/17 05:02 Baso # 0.0 K/mm3 (0.0-0.1) 06/01/17 05:02 Seg Neutrophils % 38.0 % (40.0-70.0) L 06/01/17 05:02 Seg Neutrophils # 2.0 K/mm3 (1.8-7.7) 06/01/17 05:02 Sodium 139 mmol/L (137-145) 06/01/17 05:02 Potassium 4.0 mmol/L (3.6-5.0) 06/01/17 05:02 Chloride 102.9 mmol/L (98-107) 06/01/17 05:02 Carbon Dioxide 26 mmol/L (22-30) 06/01/17 05:02 Anion Gap 14 mmol/L 06/01/17 05:02 BUN 12 mg/dL (9-20) 06/01/17 05:02 Creatinine 0.9 mg/dL (0.8-1.5) 06/01/17 05:02 Estimated GFR > 60 ml/min 06/01/17 05:02 BUN/Creatinine Ratio 13.33 % 06/01/17 05:02 Glucose 110 mg/dL (75-100) H 06/01/17 05:02 Calcium 8.6 mg/dL (8.4-10.2) 06/01/17 05:02 Magnesium 2.00 mg/dL (1.7-2.3) 05/31/17 04:04 Ammonia 53.0 umol/L (25-60) 05/31/17 04:04 Total Creatine Kinase 134 units/L (55-170) 05/31/17 01:13 TSH 1.390 mlU/mL (0.270-4.200) 05/31/17 04:04 Urine Color Yellow (Yellow) 05/31/17 01:34 Urine Turbidity Clear (Clear) 05/31/17 01:34 Urine pH 7.0 (5.0-7.0) 05/31/17 01:34 Ur Specific [place] 1.012 (1.003-1.030) 05/31/17 01:34 Urine Protein <15 mg/dl mg/dL (Negative) 05/31/17 01:34 Urine Glucose (UA) Neg mg/dL (Negative) 05/31/17 01:34 Urine Ketones Neg mg/dL (Negative) 05/31/17 01:34 Urine Blood Neg (Negative) 05/31/17 01:34 Urine Nitrite Neg (Negative) 05/31/17 01:34 Urine Bilirubin Neg (Negative) 05/31/17 01:34 Urine Urobilinogen < 2.0 mg/dL (<2.0) 05/31/17 01:34 Ur Leukocyte Esterase Neg (Negative) 05/31/17 01:34 Urine WBC (Auto) < 1.0 /HPF (0.0-6.0) 05/31/17 01:34 Urine RBC (Auto) 1.0 /HPF (0.0-6.0) 05/31/17 01:34 Urine Mucus Few /HPF 05/31/17 01:34 Salicylates < 0.3 mg/dL (2.8-20.0) L 05/31/17 04:04 Urine Opiates Screen Presumptive negative 05/31/17 04:05 Urine Methadone Screen Presumptive negative 05/31/17 04:05 Acetaminophen < 15.0 ug/mL (10.0-30.0) 05/31/17 04:04 Ur Barbiturates Screen Presumptive negative 05/31/17 04:05 Ur Phencyclidine Scrn Presumptive negative 05/31/17 04:05 Ur Amphetamines Screen Presumptive negative 05/31/17 04:05 U Benzodiazepines Scrn Presumptive negative 05/31/17 04:05 Urine Cocaine Screen Presumptive negative 05/31/17 04:05 U Marijuana (THC) Screen Presumptive negative 05/31/17 04:05 Drugs of Abuse Note Disclamer 05/31/17 04:05 Plasma/Serum Alcohol < 0.01 gm% (0-0.07) 05/31/17 01:13
[2017-06-01 09:35] VITALS: BP 163/80
[2017-06-01] MEDS: VIMPAT PO SCH (10:05)
[2017-06-01] MEDS: LEXAPRO PO SCH ×2 (10:06→10:09)
[2017-06-01] MEDS: NORVASC PO SCH (10:06)
[2017-06-01] MEDS: LOVENOX SUB-Q SCH (10:06)
[2017-06-01] MEDS: FLOMAX PO SCH (10:07)
[2017-06-01] MEDS: LaMICtal PO SCH (10:07)
--- NOTE | 2017-06-01 10:28 | Discharge Summary ---
Providers - Providers Date of Admission: 05/31/17 07:42 Date of discharge: 06/01/17 Attending physician: MYRANDA MORALES MD 05/31/17 08:24 Consult to Physician [CONS] Routine Consulting Provider: BELTRAN PHILLIP Reason For Exam: Seizure Place consult to:: yes Notified:: DR. PHILLIP Phone number called:: yes Was contact made?: Yes If yes, spoke with:: yes Primary care physician: PRACTICE ARCHITECT Hospitalization Condition: Good Hospital course: Patient is a 57 years old with past medical history of grand mal seizures present his emergency department presents by EMS for post ictal and altered mental status. Patient alerted mental status, therefore poor historian. Patient was diagnosed with Postictal state, Metabolic encephalopathy and Hypertension. CT of the head shows no acute intracranial abnormality. MRI of the [place] was cancelled due to patient has a battery pack device w/ electrodes implanted in chest. . He has been treated with IV fluid, anticonvulsants and antihypertensive medications. Patient cleared by neurology. Patient currently, alert oriented to person, place and time. No seizure episode since admission. Patient stable for discharge. He is being discharged on Lamictal, Vimpat, amlodipine and Flomax. Patient advised to follow-up with Neurology and his primary care provider as outpatient. Discharge Diagnosed Postictal state Metabolic encephalopathy Hypertension Disposition: DC-30 STILL A PATIENT Time spent for discharge: 33 minutes Core Measure Documentation - Palliative Care Palliative Care/ Comfort Measures: Not Applicable - Core Measures Any of the following diagnoses?: none Exam - Constitutional Vitals: Temp Pulse Resp BP Pulse Ox 98.2 F 56 L 18 163/80 96 06/01/17 07:30 06/01/17 07:30 06/01/17 07:30 06/01/17 07:30 05/31/17 23:00 General appearance: Present: no acute distress, other (Patient mental status improved alert and oriented X3) - EENT Eyes: Present: PERRL ENT: hearing intact - Neck Neck: Present: supple - Respiratory Respiratory effort: normal Respiratory: bilateral: CTA - Cardiovascular Heart rate: 56 Rhythm: regular Heart Sounds: Present: S1 & S2 - Extremities Extremities: no ischemia Peripheral Pulses: within normal limits - Abdominal General gastrointestinal: Present: soft, non-tender Male genitourinary: Present: deferred - Rectal Rectal Exam: deferred - Integumentary Integumentary: Present: clear, warm, dry - Musculoskeletal Musculoskeletal: strength equal bilaterally - Psychiatric Psychiatric: appropriate mood/affect - Neurologic Neurologic: CNII-XII intact, moves all extremities - Allied Health Allied health notes reviewed: nursing Plan Activity: no restrictions Weight Bearing Status: Weight Bear as Tolerated Diet: low fat, low cholesterol, low salt Follow up with: PRIMARY CARE, [Primary Care Provider] - 3-5 Days Prescriptions: amLODIPine [Norvasc] 5 mg PO DAILY #90 tablet hydrALAZINE [Apresoline INJ] 10 mg IV Q4HR PRN #90 vial PRN Reason: BP >160/100 Lacosamide [Vimpat] 150 mg PO BID 90 Days lamoTRIgine [LaMICtal] 200 mg PO BID 90 Days Tamsulosin [Flomax] 0.4 mg PO QDAY #90 capsule
== END 2017-06-01 15:25 | disposition home or self-care (01) | DRG 101 ==
LOC: ED 00:14 → 3A 07:42
PROVIDERS: ADMIT Internal Medicine; ATTEND Internal Medicine
DX: G40.409 Other generalized epilepsy and epileptic syndromes, not intractable, without status epilepticus (principal); I10 Essential (primary) hypertension; Z79.899 Other long term (current) drug therapy
CPT/HCPCS: 36415; 51701; 70450; 71010; 71020; 72125; 80048; 80307; 80320; 81001; 82140; 82550; 83735; 84443; 85025; 85027; 87040; 93005; 93010; 95819; 96365; 96367; C9254; G0480; J0456; J0696; J1650; J7042; J7050

== ENCOUNTER 2017-09-08 05:17 | Emergency (ER) | payer MEDICARE ==
[2017-09-08 05:55] LABS: Urine Drugs of Abuse Note Disclamer
[2017-09-08 06:02] LABS: Hematocrit 43.4 % (35.5-45.6); Mean Corpuscular HGB Conc 32 % (32-34); Mean Corpuscular Hemoglobin 27 pg (28-32); Mean Corpuscular Volume 83 fl (84-94); Platelet Count 274 K/mm3 (140-440); Red Blood Count 5.25 M/mm3 (3.65-5.03); Red Cell Distribution Width 16.3 % (13.2-15.2)
[2017-09-08 06:05] LABS: Bilirubin,Urine NEG (Negative); Blood,Urine NEG (Negative); Ketones,Urine NEG (Negative); Leukocyte Esterase,Urine NEG (Negative); Nitrite,Urine NEG (Negative); Protein,Urine <15 mg/dL mg/dL (Negative); Urobilinogen,Urine < 2.0 mg/dL (<2.0)
[2017-09-08 06:14] LABS: Mucus,Urine Few /HPF
[2017-09-08 06:23] LABS: Alanine Aminotransferase 18 units/L (7-56); Albumin 4.3 g/dL (3.9-5); Albumin/Globulin Ratio 1.4 %; Alkaline Phosphatase 115 units/L (35-129); Anion Gap 18 mmol/L; BUN/Creatinine Ratio 11; Blood Urea Nitrogen 10 mg/dL (9-20); Calcium 9.3 mg/dL (8.4-10.2); Carbon Dioxide 27 mmol/L (22-30); Chloride 106.7 mmol/L (98-107); Glucose 96 mg/dL (75-100); Potassium 4.3 mmol/L (3.6-5.0); Sodium 147 mmol/L (137-145); Total Protein 7.3 g/dL (6.3-8.2)
--- NOTE | 2017-09-08 06:42 | Cat Scan Report ---
FINAL REPORT EXAM: CT HEAD/BRAIN WO CON HISTORY: altered mental status TECHNIQUE: CT imaging is acquired through the brain without contrast. Transaxial reformations are provided. PRIORS: 05/31/2017, 05/24/2017 FINDINGS: Unchanged left posterior approach deep brain stimulators with associated streak artifacts. Anterior right temporal encephalomalacia. Cerebellar volume loss is unchanged. Ventricles and CSF spaces are otherwise within normal limits. Scattered deep and subcortical white matter hypodense foci are confluent in some areas and are compatible with microvascular angiopathy. No acute intracranial hemorrhage or mass effect identified within limits of this exam. Right-sided craniotomy defects overlying anterior right temporoparietal region. No acute skull fracture. Partially visualized paranasal sinuses are clear. Mastoids are clear. IMPRESSION: No acute intracranial abnormality. 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
[2017-09-08 06:55] LABS: Basophils % (Manual) 0 % (0.0-1.8); Blastocytes % (Manual) 0 %
[2017-09-08 06:56] LABS: Diff Status Complete; Ovalocytes Few; Polychromasia Rare; Stomatocytes Rare
--- NOTE | 2017-09-08 07:44 | Emergency Department Report ---
ED General Adult HPI - General Chief complaint: Altered Mental Status Stated complaint: UNRESPONSIVE Time Seen by Provider: 09/08/17 07:37 Source: EMS Mode of arrival: Stretcher Limitations: Altered Mental Status - History of Present Illness Initial comments: Patient is a 57-year-old male with past medical history of epilepsy patient is on Vimpat. He presents with altered mental status. Patient was found unresponsive on the ground emesis same at his hip hurt. Patient states that he believes he had a seizure. He denies seeing out of his Vimpat medication. Patient is complaining of left hip pain he states the pain as a 7 out of 10 as achy type of pain moving his hip makes the pain worse nothing makes it better. Patient states that it does not radiate anywhere. - Related Data Home Medications Medication Instructions Recorded Confirmed Last Taken Escitalopram [Lexapro] 10 mg PO DAILY 05/31/17 05/31/17 05/30/17 LORazepam [Ativan] 2 mg PO QHS 05/31/17 05/31/17 05/30/17 QUEtiapine [SEROquel] 25 mg PO BID 05/31/17 05/31/17 05/30/17 Previous Rx's Medication Instructions Recorded Last Taken Type Lacosamide [Vimpat] 150 mg PO BID 90 Days tablet 06/01/17 Unknown Rx Tamsulosin [Flomax] 0.4 mg PO QDAY #90 capsule 06/01/17 Unknown Rx amLODIPine [Norvasc] 5 mg PO DAILY #90 tablet 06/01/17 Unknown Rx hydrALAZINE [Apresoline INJ] 10 mg IV Q4HR PRN #90 vial 06/01/17 Unknown Rx lamoTRIgine [LaMICtal] 200 mg PO BID 90 Days tablet 06/01/17 Unknown Rx Naproxen Sodium [Aleve TAB] 220 mg PO Q8H PRN #30 tablet 09/08/17 Unknown Rx Allergies Allergy/AdvReac Type Severity Reaction Status Date / Time No Known Allergies Allergy Verified 05/31/17 00:22 ED Review of Systems ROS: Stated complaint: UNRESPONSIVE Other details as noted in HPI ED Past Medical Hx - Past Medical History Previous Medical History?: Yes Hx Hypertension: Yes Hx Congestive Heart Failure: No Hx Diabetes: No Hx Seizures: Yes Hx Asthma: No Hx COPD: No Hx HIV: No - Surgical History Past Surgical History?: Yes Additional Surgical History: cerebral shunt - Social History Smoking Status: Never Smoker - Medications Home Medications: Home Medications Medication Instructions Recorded Confirmed Last Taken Type Escitalopram [Lexapro] 10 mg PO DAILY 05/31/17 05/31/17 05/30/17 History LORazepam [Ativan] 2 mg PO QHS 05/31/17 05/31/17 05/30/17 History QUEtiapine [SEROquel] 25 mg PO BID 05/31/17 05/31/17 05/30/17 History Lacosamide [Vimpat] 150 mg PO BID 90 Days tablet 06/01/17 Unknown Rx Tamsulosin [Flomax] 0.4 mg PO QDAY #90 capsule 06/01/17 Unknown Rx amLODIPine [Norvasc] 5 mg PO DAILY #90 tablet 06/01/17 Unknown Rx hydrALAZINE [Apresoline INJ] 10 mg IV Q4HR PRN #90 vial 06/01/17 Unknown Rx lamoTRIgine [LaMICtal] 200 mg PO BID 90 Days tablet 06/01/17 Unknown Rx Naproxen Sodium [Aleve TAB] 220 mg PO Q8H PRN #30 tablet 09/08/17 Unknown Rx ED Physical Exam - General Limitations: Altered Mental Status General appearance: alert, in no apparent distress - Head Head exam: Present: atraumatic, normocephalic - Eye Eye exam: Present: normal appearance - ENT ENT exam: Present: mucous membranes moist - Neck Neck exam: Present: normal inspection - Respiratory Respiratory exam: Present: normal lung sounds bilaterally. Absent: respiratory distress - Cardiovascular Cardiovascular Exam: Present: regular rate, normal rhythm. Absent: systolic murmur, diastolic murmur, rubs, gallop - GI/Abdominal GI/Abdominal exam: Present: soft, normal bowel sounds - Rectal Rectal exam: Present: deferred - Extremities Exam Extremities exam: Present: other (right hip tenderness ) - Back Exam Back exam: Present: normal inspection - Neurological Exam Neurological exam: Present: alert, oriented X3 - Psychiatric Psychiatric exam: Present: normal affect, normal mood - Skin Skin exam: Present: warm, dry, intact, normal color. Absent: rash ED Course Vital Signs 09/08/17 09/08/17 09/08/17 05:43 05:44 05:46 Temperature 97.5 F L Pulse Rate 72 67 70 Respiratory 16 13 12 Rate Blood Pressure 165/84 O2 Sat by Pulse 97 98 99 Oximetry 09/08/17 09/08/17 09/08/17 06:00 06:13 06:48 Temperature Pulse Rate 71 72 Respiratory 8 L 18 Rate Blood Pressure 168/86 163/75 O2 Sat by Pulse 99 98 99 Oximetry 09/08/17 09/08/17 09/08/17 07:00 07:16 07:30 Temperature Pulse Rate 69 63 65 Respiratory 13 13 14 Rate Blood Pressure 172/85 161/81 171/78 O2 Sat by Pulse 97 98 97 Oximetry 09/08/17 09/08/17 09/08/17 07:46 08:00 08:16 Temperature Pulse Rate 75 71 63 Respiratory 33 H 11 L 8 L Rate Blood Pressure 147/71 154/81 154/81 O2 Sat by Pulse 99 97 100 Oximetry 09/08/17 09/08/17 09/08/17 08:30 08:46 09:00 Temperature Pulse Rate 65 65 61 Respiratory 14 12 15 Rate Blood Pressure 155/80 152/75 150/82 O2 Sat by Pulse 98 97 96 Oximetry 09/08/17 09/08/17 09/08/17 09:16 09:30 09:46 Temperature Pulse Rate 68 67 60 Respiratory 14 14 15 Rate Blood Pressure 150/82 139/75 133/76 O2 Sat by Pulse 96 95 96 Oximetry 09/08/17 09/08/17 09/08/17 10:00 10:16 10:30 Temperature Pulse Rate 59 L 66 60 Respiratory 13 13 13 Rate Blood Pressure 134/74 134/74 139/73 O2 Sat by Pulse 97 95 97 Oximetry 09/08/17 10:46 Temperature Pulse Rate 60 Respiratory 15 Rate Blood Pressure 139/73 O2 Sat by Pulse 97 Oximetry ED Medical Decision Making - Lab Data Result diagrams: 09/08/17 05:30 09/08/17 05:30 Lab Results 09/08/17 09/08/17 09/08/17 Range/Units 05:30 05:30 05:30 WBC 6.0 (4.5-11.0) K/mm3 RBC 5.25 H (3.65-5.03) M/mm3 Hgb 14.0 (11.8-15.2) gm/dl Hct 43.4 (35.5-45.6) % MCV 83 L (84-94) fl MCH 27 L (28-32) pg MCHC 32 (32-34) % RDW 16.3 H (13.2-15.2) % Plt Count 274 (140-440) K/mm3 Add Manual Diff Complete Total Counted 100 Seg Neutrophils % Quality Control Lead Seg Neuts % (Manual) 31.0 L (40.0-70.0) % Band Neutrophils % 0 % Lymphocytes % (Manual) 54.0 H (13.4-35.0) % Reactive Lymphs % (Man) 0 % Monocytes % (Manual) 7.0 (0.0-7.3) % Eosinophils % (Manual) 8.0 H (0.0-4.3) % Basophils % (Manual) 0 (0.0-1.8) % Metamyelocytes % 0 % Myelocytes % 0 % Promyelocytes % 0 % Blast Cells % 0 % Nucleated RBC % Not Reportable Seg Neutrophils # Man 1.9 (1.8-7.7) K/mm3 Band Neutrophils # 0.0 K/mm3 Lymphocytes # (Manual) 3.2 (1.2-5.4) K/mm3 Abs React Lymphs (Man) 0.0 K/mm3 Monocytes # (Manual) 0.4 (0.0-0.8) K/mm3 Eosinophils # (Manual) 0.5 H (0.0-0.4) K/mm3 Basophils # (Manual) 0.0 (0.0-0.1) K/mm3 Metamyelocytes # 0.0 K/mm3 Myelocytes # 0.0 K/mm3 Promyelocytes # 0.0 K/mm3 Blast Cells # 0.0 K/mm3 WBC Morphology Not Reportable Hypersegmented Neuts Not Reportable Hyposegmented Neuts Not Reportable Hypogranular Neuts Not Reportable Smudge Cells Not Reportable Toxic Granulation Not Reportable Toxic Vacuolation Not Reportable Dohle Bodies Not Reportable Pelger-Huet Anomaly Not Reportable Surinder Rods Not Reportable Platelet Estimate Appears normal Clumped Platelets Not Reportable Plt Clumps, EDTA Not Reportable Large Platelets Not Reportable Giant Platelets Not Reportable Platelet Satelliting Not Reportable Plt Morphology Comment Not Reportable RBC Morphology Not Reportable Dimorphic RBCs Not Reportable Polychromasia Rare Hypochromasia Not Reportable Poikilocytosis Not Reportable Anisocytosis Not Reportable Microcytosis Not Reportable Macrocytosis Not Reportable Spherocytes Not Reportable Pappenheimer Bodies Not Reportable Sickle Cells Not Reportable Target Cells Not Reportable Tear Drop Cells Not Reportable Ovalocytes Few Stomatocytes Rare Helmet Cells Not Reportable [place] Bodies Not Reportable [place] Rings Not Reportable Lisa Cells Not Reportable Bite Cells Not Reportable Crenated Cell Not Reportable Elliptocytes Not Reportable Acanthocytes (Spur) Not Reportable Rouleaux Not Reportable Hemoglobin C Crystals Not Reportable Schistocytes Not Reportable Malaria parasites Not Reportable Cristian Bodies Not Reportable Hem Pathologist Commnt No Sodium 147 H (137-145) mmol/L Potassium 4.3 (3.6-5.0) mmol/L Chloride 106.7 (98-107) mmol/L Carbon Dioxide 27 (22-30) mmol/L Anion Gap 18 mmol/L BUN 10 (9-20) mg/dL Creatinine 0.9 (0.8-1.5) mg/dL Estimated GFR > 60 ml/min BUN/Creatinine Ratio 11 % Glucose 96 (75-100) mg/dL Lactic Acid 1.40 (0.7-2.0) mmol/L Calcium 9.3 (8.4-10.2) mg/dL Magnesium 2.20 (1.7-2.3) mg/dL Total Bilirubin 0.20 (0.1-1.2) mg/dL AST 18 (5-40) units/L ALT 18 (7-56) units/L Alkaline Phosphatase 115 (35-129) units/L Total Protein 7.3 (6.3-8.2) g/dL Albumin 4.3 (3.9-5) g/dL Albumin/Globulin Ratio 1.4 % TSH (0.270-4.200) mlU/mL Urine Color (Yellow) Urine Turbidity (Clear) Urine pH (5.0-7.0) Ur Specific [place] (1.003-1.030) Urine Protein (Negative) mg/dL Urine Glucose (UA) (Negative) mg/dL Urine Ketones (Negative) mg/dL Urine Blood (Negative) Urine Nitrite (Negative) Urine Bilirubin (Negative) Urine Urobilinogen (<2.0) mg/dL Ur Leukocyte Esterase (Negative) Urine WBC (Auto) (0.0-6.0) /HPF Urine RBC (Auto) (0.0-6.0) /HPF U Epithel Cells (Auto) (0-13.0) /HPF Urine Mucus /HPF Salicylates (2.8-20.0) mg/dL Urine Opiates Screen Urine Methadone Screen Acetaminophen (10.0-30.0) ug/mL Ur Barbiturates Screen Ur Phencyclidine Scrn Ur Amphetamines Screen U Benzodiazepines Scrn Urine Cocaine Screen U Marijuana (THC) Screen Drugs of Abuse Note Plasma/Serum Alcohol (0-0.07) gm% 09/08/17 09/08/17 09/08/17 Range/Units 05:30 05:30 05:30 WBC (4.5-11.0) K/mm3 RBC (3.65-5.03) M/mm3 Hgb (11.8-15.2) gm/dl Hct (35.5-45.6) % MCV (84-94) fl MCH (28-32) pg MCHC (32-34) % RDW (13.2-15.2) % Plt Count (140-440) K/mm3 Add Manual Diff Total Counted Seg Neutrophils % Seg Neuts % (Manual) (40.0-70.0) % Band Neutrophils % % Lymphocytes % (Manual) (13.4-35.0) % Reactive Lymphs % (Man) % Monocytes % (Manual) (0.0-7.3) % Eosinophils % (Manual) (0.0-4.3) % Basophils % (Manual) (0.0-1.8) % Metamyelocytes % % Myelocytes % % Promyelocytes % % Blast Cells % % Nucleated RBC % Seg Neutrophils # Man (1.8-7.7) K/mm3 Band Neutrophils # K/mm3 Lymphocytes # (Manual) (1.2-5.4) K/mm3 Abs React Lymphs (Man) K/mm3 Monocytes # (Manual) (0.0-0.8) K/mm3 Eosinophils # (Manual) (0.0-0.4) K/mm3 Basophils # (Manual) (0.0-0.1) K/mm3 Metamyelocytes # K/mm3 Myelocytes # K/mm3 Promyelocytes # K/mm3 Blast Cells # K/mm3 WBC Morphology Hypersegmented Neuts Hyposegmented Neuts Hypogranular Neuts Smudge Cells Toxic Granulation Toxic Vacuolation Dohle Bodies Pelger-Huet Anomaly Surinder Rods Platelet Estimate Clumped Platelets Plt Clumps, EDTA Large Platelets Giant Platelets Platelet Satelliting Plt Morphology Comment RBC Morphology Dimorphic RBCs Polychromasia Hypochromasia Poikilocytosis Anisocytosis Microcytosis Macrocytosis Spherocytes Pappenheimer Bodies Sickle Cells Target Cells Tear Drop Cells Ovalocytes Stomatocytes Helmet Cells [place] Bodies [place] Rings [place] Cells Bite Cells Crenated Cell Elliptocytes Acanthocytes (Spur) Rouleaux Hemoglobin C Crystals Schistocytes Malaria parasites Cristian Bodies Hem Pathologist Commnt Sodium (137-145) mmol/L Potassium (3.6-5.0) mmol/L Chloride (98-107) mmol/L Carbon Dioxide (22-30) mmol/L Anion Gap mmol/L BUN (9-20) mg/dL Creatinine (0.8-1.5) mg/dL Estimated GFR ml/min BUN/Creatinine Ratio % Glucose (75-100) mg/dL Lactic Acid (0.7-2.0) mmol/L Calcium (8.4-10.2) mg/dL Magnesium (1.7-2.3) mg/dL Total Bilirubin (0.1-1.2) mg/dL AST (5-40) units/L ALT (7-56) units/L Alkaline Phosphatase (35-129) units/L Total Protein (6.3-8.2) g/dL Albumin (3.9-5) g/dL Albumin/Globulin Ratio % TSH 2.410 (0.270-4.200) mlU/mL Urine Color (Yellow) Urine Turbidity (Clear) Urine pH (5.0-7.0) Ur Specific [place] (1.003-1.030) Urine Protein (Negative) mg/dL Urine Glucose (UA) (Negative) mg/dL Urine Ketones (Negative) mg/dL Urine Blood (Negative) Urine Nitrite (Negative) Urine Bilirubin (Negative) Urine Urobilinogen (<2.0) mg/dL Ur Leukocyte Esterase (Negative) Urine WBC (Auto) (0.0-6.0) /HPF Urine RBC (Auto) (0.0-6.0) /HPF U Epithel Cells (Auto) (0-13.0) /HPF Urine Mucus /HPF Salicylates < 0.3 L (2.8-20.0) mg/dL Urine Opiates Screen Urine Methadone Screen Acetaminophen < 15.0 (10.0-30.0) ug/mL Ur Barbiturates Screen Ur Phencyclidine Scrn Ur Amphetamines Screen U Benzodiazepines Scrn Urine Cocaine Screen U Marijuana (THC) Screen Drugs of Abuse Note Plasma/Serum Alcohol (0-0.07) gm% 09/08/17 09/08/17 09/08/17 Range/Units 05:30 08:36 Unknown WBC (4.5-11.0) K/mm3 RBC (3.65-5.03) M/mm3 Hgb (11.8-15.2) gm/dl Hct (35.5-45.6) % MCV (84-94) fl MCH (28-32) pg MCHC (32-34) % RDW (13.2-15.2) % Plt Count (140-440) K/mm3 Add Manual Diff Total Counted Seg Neutrophils % Seg Neuts % (Manual) (40.0-70.0) % Band Neutrophils % % Lymphocytes % (Manual) (13.4-35.0) % Reactive Lymphs % (Man) % Monocytes % (Manual) (0.0-7.3) % Eosinophils % (Manual) (0.0-4.3) % Basophils % (Manual) (0.0-1.8) % Metamyelocytes % % Myelocytes % % Promyelocytes % % Blast Cells % % Nucleated RBC % Seg Neutrophils # Man (1.8-7.7) K/mm3 Band Neutrophils # K/mm3 Lymphocytes # (Manual) (1.2-5.4) K/mm3 Abs React Lymphs (Man) K/mm3 Monocytes # (Manual) (0.0-0.8) K/mm3 Eosinophils # (Manual) (0.0-0.4) K/mm3 Basophils # (Manual) (0.0-0.1) K/mm3 Metamyelocytes # K/mm3 Myelocytes # K/mm3 Promyelocytes # K/mm3 Blast Cells # K/mm3 WBC Morphology Hypersegmented Neuts Hyposegmented Neuts Hypogranular Neuts Smudge Cells Toxic Granulation Toxic Vacuolation Dohle Bodies Pelger-Huet Anomaly Surinder Rods Platelet Estimate Clumped Platelets Plt Clumps, EDTA Large Platelets Giant Platelets Platelet Satelliting Plt Morphology Comment RBC Morphology Dimorphic RBCs Polychromasia Hypochromasia Poikilocytosis Anisocytosis Microcytosis Macrocytosis Spherocytes Pappenheimer Bodies Sickle Cells Target Cells Tear Drop Cells Ovalocytes Stomatocytes Helmet Cells [place] Bodies [place] Rings Lisa Cells Bite Cells Crenated Cell Elliptocytes Acanthocytes (Spur) Rouleaux Hemoglobin C Crystals Schistocytes Malaria parasites Cristian Bodies Hem Pathologist Commnt Sodium (137-145) mmol/L Potassium (3.6-5.0) mmol/L Chloride (98-107) mmol/L Carbon Dioxide (22-30) mmol/L Anion Gap mmol/L BUN (9-20) mg/dL Creatinine (0.8-1.5) mg/dL Estimated GFR ml/min BUN/Creatinine Ratio % Glucose (75-100) mg/dL Lactic Acid 1.30 (0.7-2.0) mmol/L Calcium (8.4-10.2) mg/dL Magnesium (1.7-2.3) mg/dL Total Bilirubin (0.1-1.2) mg/dL AST (5-40) units/L ALT (7-56) units/L Alkaline Phosphatase (35-129) units/L Total Protein (6.3-8.2) g/dL Albumin (3.9-5) g/dL Albumin/Globulin Ratio % TSH (0.270-4.200) mlU/mL Urine Color Yellow (Yellow) Urine Turbidity Clear (Clear) Urine pH 6.0 (5.0-7.0) Ur Specific [place] 1.016 (1.003-1.030) Urine Protein <15 mg/dl (Negative) mg/dL Urine Glucose (UA) Neg (Negative) mg/dL Urine Ketones Neg (Negative) mg/dL Urine Blood Neg (Negative) Urine Nitrite Neg (Negative) Urine Bilirubin Neg (Negative) Urine Urobilinogen < 2.0 (<2.0) mg/dL Ur Leukocyte Esterase Neg (Negative) Urine WBC (Auto) 2.0 (0.0-6.0) /HPF Urine RBC (Auto) 1.0 (0.0-6.0) /HPF U Epithel Cells (Auto) 1.0 (0-13.0) /HPF Urine Mucus Few /HPF Salicylates (2.8-20.0) mg/dL Urine Opiates Screen Urine Methadone Screen Acetaminophen (10.0-30.0) ug/mL Ur Barbiturates Screen Ur Phencyclidine Scrn Ur Amphetamines Screen U Benzodiazepines Scrn Urine Cocaine Screen U Marijuana (THC) Screen Drugs of Abuse Note Plasma/Serum Alcohol < 0.01 (0-0.07) gm% 09/08/ Range/Units Unknown WBC (4.5-11.0) K/mm3 RBC (3.65-5.03) M/mm3 Hgb (11.8-15.2) gm/dl Hct (35.5-45.6) % MCV (84-94) fl MCH (28-32) pg MCHC (32-34) % RDW (13.2-15.2) % Plt Count (140-440) K/mm3 Add Manual Diff Total Counted Seg Neutrophils % Seg Neuts % (Manual) (40.0-70.0) % Band Neutrophils % % Lymphocytes % (Manual) (13.4-35.0) % Reactive Lymphs % (Man) % Monocytes % (Manual) (0.0-7.3) % Eosinophils % (Manual) (0.0-4.3) % Basophils % (Manual) (0.0-1.8) % Metamyelocytes % % Myelocytes % % Promyelocytes % % Blast Cells % % Nucleated RBC % Seg Neutrophils # Man (1.8-7.7) K/mm3 Band Neutrophils # K/mm3 Lymphocytes # (Manual) (1.2-5.4) K/mm3 Abs React Lymphs (Man) K/mm3 Monocytes # (Manual) (0.0-0.8) K/mm3 Eosinophils # (Manual) (0.0-0.4) K/mm3 Basophils # (Manual) (0.0-0.1) K/mm3 Metamyelocytes # K/mm3 Myelocytes # K/mm3 Promyelocytes # K/mm3 Blast Cells # K/mm3 WBC Morphology Hypersegmented Neuts Hyposegmented Neuts Hypogranular Neuts Smudge Cells Toxic Granulation Toxic Vacuolation Dohle Bodies Pelger-Huet Anomaly Surinder Rods Platelet Estimate Clumped Platelets Plt Clumps, EDTA Large Platelets Giant Platelets Platelet Satelliting Plt Morphology Comment RBC Morphology Dimorphic RBCs Polychromasia Hypochromasia Poikilocytosis Anisocytosis Microcytosis Macrocytosis Spherocytes Pappenheimer Bodies Sickle Cells Target Cells Tear Drop Cells Ovalocytes Stomatocytes Helmet Cells [place] Bodies [place] Rings [place] Cells Bite Cells Crenated Cell Elliptocytes Acanthocytes (Spur) Rouleaux Hemoglobin C Crystals Schistocytes Malaria parasites Cristian Bodies Hem Pathologist Commnt Sodium (137-145) mmol/L Potassium (3.6-5.0) mmol/L Chloride (98-107) mmol/L Carbon Dioxide (22-30) mmol/L Anion Gap mmol/L BUN (9-20) mg/dL Creatinine (0.8-1.5) mg/dL Estimated GFR ml/min BUN/Creatinine Ratio % Glucose (75-100) mg/dL Lactic Acid (0.7-2.0) mmol/L Calcium (8.4-10.2) mg/dL Magnesium (1.7-2.3) mg/dL Total Bilirubin (0.1-1.2) mg/dL AST (5-40) units/L ALT (7-56) units/L Alkaline Phosphatase (35-129) units/L Total Protein (6.3-8.2) g/dL Albumin (3.9-5) g/dL Albumin/Globulin Ratio % TSH (0.270-4.200) mlU/mL Urine Color (Yellow) Urine Turbidity (Clear) Urine pH (5.0-7.0) Ur Specific [place] (1.003-1.030) Urine Protein (Negative) mg/dL Urine Glucose (UA) (Negative) mg/dL Urine Ketones (Negative) mg/dL Urine Blood (Negative) Urine Nitrite (Negative) Urine Bilirubin (Negative) Urine Urobilinogen (<2.0) mg/dL Ur Leukocyte Esterase (Negative) Urine WBC (Auto) (0.0-6.0) /HPF Urine RBC (Auto) (0.0-6.0) /HPF U Epithel Cells (Auto) (0-13.0) /HPF Urine Mucus /HPF Salicylates (2.8-20.0) mg/dL Urine Opiates Screen Presumptive negative Urine Methadone Screen Presumptive negative Acetaminophen (10.0-30.0) ug/mL Ur Barbiturates Screen Presumptive negative Ur Phencyclidine Scrn Presumptive negative Ur Amphetamines Screen Presumptive negative U Benzodiazepines Scrn Presumptive negative Urine Cocaine Screen Presumptive negative U Marijuana (THC) Screen Presumptive negative Drugs of Abuse Note Disclamer Plasma/Serum Alcohol (0-0.07) gm% - EKG Data -: EKG Interpreted by Me - EKG Data 09/08/17 12:07 EKG shows normal sinus rhythm signs of LVH no axis deviation or T wave inversion. - Radiology Data Radiology results: report reviewed, image reviewed CT head: Shows no acute intracranial process. X-ray right hip: Shows no acute osseous injury. - Medical Decision Making Chief medical diagnosis: Epilepsy Differential medical diagnosis: Hip fracture, joint abnormality, electrolyte abnormality I'll get CT head, x-ray hip, oral pain medication, IV Keppra, CBC, CMP, urinalysis Patient's laboratory findings are unremarkable patient has no hip fracture on x- ray. I'll send patient home to follow up with his primary care provider and his neurologist. Patient states that he does not need any refills on his medication. Additional verbal discharge instructions were given. Critical care attestation.: If time is entered above; I have spent that time in minutes in the direct care of this critically ill patient, excluding procedure time. ED Disposition Clinical Impression: Post-ictal confusion, Left hip pain Epilepsy Qualifiers: Epilepsy type: unspecified Intractability: not intractable Status epilepticus: without status epilepticus Qualified Code(s): G40.909 - Epilepsy, unspecified, not intractable, without status epilepticus Disposition: DC- TO HOME OR SELFCARE Is pt being admited?: No Does the pt Need Aspirin: No Condition: Stable Instructions: Arthralgia (ED) Prescriptions: Naproxen Sodium [Aleve TAB] 220 mg PO Q8H PRN #30 tablet PRN Reason: Pain Referrals: KELECHI MOSCOSO MD [Staff Physician] - 3-5 Days
[2017-09-08] MEDS ORDERED: KEPPRA 1,000 MG/NS 0.75% 100ML 1,000 MG/100 ML BAG IV ONE (07:49)
--- NOTE | 2017-09-08 08:54 | XRay Report ---
LEFT HIP RADIOGRAPHS INDICATION: Hip pain, status post fall. COMPARISON: None similar. FINDINGS: An AP pelvic radiograph with frog-leg projection of the left hip demonstrate intact articulation. Imaged bilateral SI and hip joints appear intact. Nonobstructive bowel gas pattern. CONCLUSION: No acute radiographic abnormality. Thank you for the opportunity to participate in this patient's care.
[2017-09-08] MEDS ORDERED: NAPROSYN PO ONE (10:52)
[2017-09-08 13:01] VITALS: BP 133/78
== END 2017-09-08 13:07 | disposition home or self-care (01) ==
LOC: ED 05:17
DX: G40.909 Epilepsy, unspecified, not intractable, without status epilepticus (principal); M25.552 Pain in left hip; R41.0 Disorientation, unspecified; I10 Essential (primary) hypertension
CPT/HCPCS: 36415; 70450; 73502; 80053; 80307; 81001; 82140; 83735; 84443; 85007; 85025; 93005; 93010; 96365; 99285; G0480; J1953; 80320

== ENCOUNTER 2017-09-24 10:41 | Emergency (ER) | payer MEDICARE ==
--- NOTE | 2017-09-24 11:39 | Emergency Department Report ---
HPI - General Time Seen by Provider: 09/24/17 11:23 - HPI HPI: Room 22 The patient is a 57-year-old male presenting with chief complaint of fall. The patient has a history of seizures and schizophrenia and states this morning he took his 10:00 meds but then fell off of the edge of his bed. Patient is a poor historian and begins to cry during the history. When asked how the patient fell (e.g. slip, tripped, didn't dizzy, syncope) the patient alludes that he may have slipped off the edge of the bed because it is made of wood. The patient states he has had pain in his neck since the fall. Patient denies suicidal ideation but when asked if he is having thoughts of killing anyone else the patient replies "my !" Location: Neck, see above Duration: [See above] Quality: Pain Severity: Moderate Modifying factors: [see above] Context: [see above] Mode of transportation: [not driving] ED Past Medical Hx - Past Medical History Hx Hypertension: Yes Hx Seizures: Yes - Surgical History Additional Surgical History: cerebral shunt - Family History Family history: no significant - Social History Smoking Status: Current Every Day Smoker Substance Use Type: Marijuana - Medications Home Medications: Home Medications Medication Instructions Recorded Confirmed Last Taken Type QUEtiapine [SEROquel] 25 mg PO BID 05/31/17 09/24/17 05/30/17 History Lacosamide [Vimpat] 150 mg PO BID 90 Days tablet 06/01/17 09/24/17 Unknown Rx Tamsulosin [Flomax] 0.4 mg PO QDAY #90 capsule 06/01/17 09/24/17 Unknown Rx lamoTRIgine [LaMICtal] 200 mg PO BID 90 Days tablet 06/01/17 09/24/17 Unknown Rx Naproxen Sodium [Aleve TAB] 220 mg PO Q8H PRN #30 tablet 09/08/17 09/24/17 Unknown Rx ED Review of Systems ROS: Stated complaint: OVER MEDICATED Other details as noted in HPI Comment: Unobtainable due to pts medical conditions Musculoskeletal: arthralgia, myalgia Physical Exam - Physical Exam Physical Exam: GENERAL: The patient is well-developed well-nourished male lying on stretcher occasionally tearful. [] HEENT: Normocephalic. Atraumatic. Extraocular motions are intact. Patient has moist mucous membranes. NECK: Supple. Trachea midline CHEST/LUNGS: Clear to auscultation. There is no respiratory distress noted. HEART/CARDIOVASCULAR: Regular. There is no tachycardia. There is no gallop rub or murmur. ABDOMEN: Abdomen is soft, nontender. Patient has normal bowel sounds. There is no abdominal distention. SKIN: There is no rash. There is no edema. There is no diaphoresis. NEURO: The patient is awake and alert. The patient is cooperative. The patient has no focal neurologic deficits. The patient has normal speech. Cranial nerves II through XII grossly intact, no drift. Corner Block Cutter 5+/5 bilaterally. Normal sensation throughout. Moves all extremities MUSCULOSKELETAL: There is no evidence of acute injury. ED Medical Decision Making - Lab Data Result diagrams: 09/24/17 12:20 09/24/17 12:20 Laboratory Tests 09/24/17 09/24/17 09/24/17 12:20 12:20 12:20 WBC 4.8 RBC 5.31 H Hgb 14.3 Hct 43.8 MCV 83 L MCH 27 L MCHC 33 RDW 16.1 H Plt Count 255 Lymph % (Auto) 32.9 [place] % (Auto) 12.5 H Eos % (Auto) 4.5 H Baso % (Auto) 0.5 Lymph # 1.6 [place] # 0.6 Eos # 0.2 Baso # 0.0 Seg Neutrophils % 49.6 Seg Neutrophils # 2.4 PT 12.4 INR 0.88 APTT 33.3 Sodium 142 Potassium 4.0 Chloride 100.3 Carbon Dioxide 24 Anion Gap 22 BUN 9 Creatinine 0.9 Estimated GFR > 60 BUN/Creatinine Ratio 10 Glucose 92 Calcium 9.7 Magnesium 2.10 Total Bilirubin 0.50 AST 18 ALT 17 Alkaline Phosphatase 95 Total Creatine Kinase 224 H CK-MB (CK-2) 2.4 CK-MB (CK-2) Rel Index 1.0 Troponin T < 0.010 Total Protein 7.4 Albumin 4.6 Albumin/Globulin Ratio 1.6 Plasma/Serum Alcohol 09/24/17 14:46 WBC RBC Hgb Hct MCV MCH MCHC RDW Plt Count Lymph % (Auto) [place] % (Auto) Eos % (Auto) Baso % (Auto) Lymph # [place] # Eos # Baso # Seg Neutrophils % Seg Neutrophils # PT INR APTT Sodium Potassium Chloride Carbon Dioxide Anion Gap BUN Creatinine Estimated GFR BUN/Creatinine Ratio Glucose Calcium Magnesium Total Bilirubin AST ALT Alkaline Phosphatase Total Creatine Kinase CK-MB (CK-2) CK-MB (CK-2) Rel Index Troponin T Total Protein Albumin Albumin/Globulin Ratio Plasma/Serum Alcohol < 0.01 - EKG Data -: EKG Interpreted by Vt EKG shows normal: sinus rhythm Rate: normal - EKG Data When compared to previous EKG there are: previous EKG unavailable Interpretation: other (no ischemic changes seen) - Radiology Data Radiology results: report reviewed (CT head, CT cervical spine), image reviewed (CT head, CT cervical spine) CT SCAN OF THE CERVICAL SPINE: HISTORY: Neck pain after fall. TECHNIQUE: Contiguous 1.25 mm axial images of the cervical spine were obtained. Sagittal and coronal reformatted images. FINDINGS: There is normal alignment of the cervical spine. The body, pedicles and posterior ligaments are intact. No evidence of fracture or subluxation is seen. Moderate degenerative disc disease at C5-6 and C6-7 is noted. The facet joints are unremarkable. The spinal canal appears normal. The prevertebral soft tissues appear normal. IMPRESSION: Mild cervical spondylosis. No acute process is noted. Transcribed By: TTR Dictated By: ARNOLD ANDERSON JR, MD Electronically Authenticated By: ARNOLD ANDERSON JR, MD Signed Date/Time: 09/24/17 1156 DD/ 1155 TD/TT: 09/24/[address] HEAD WITHOUT CONTRAST: HISTORY: Loss of consciousness, fall, head injury. TECHNIQUE: Sequential 2.5mm CT images. COMPARISON: 09/08/17. FINDINGS: Metallic leads terminating within the left lateral ventricle and medial left temporal lobe generate artifact and are unchanged in position. Large area of encephalomalacia in the right anterior temporal region is unchanged measuring 5.2 x 3.5 cm in axial plane. There is no evidence for hemorrhage, mass, extra-axial fluid collection or hydrocephalus. Volume loss in the cerebellum is stable. The sinuses and mastoid air cells are clear. IMPRESSION: No acute intracranial process is identified. Chronic findings as outlined above which are unchanged since 09/08/17. Transcribed By: TTR Dictated By: ARNOLD ANDERSON JR, MD Electronically Authenticated By: ARNOLD ANDERSON JR, MD Signed Date/Time: 09/24/17 1155 DD/ 1153 TD/TT: 09/24/17 115 - Differential Diagnosis schizophrenia, cervical fracture, cervical strain Critical care attestation.: If time is entered above; I have spent that time in minutes in the direct care of this critically ill patient, excluding procedure time. ED Disposition Clinical Impression: Homicidal ideation, Fall, Cervical strain, acute Disposition: DC/TX-65 PSY HOSP/PSY UNIT Is pt being admited?: No Does the pt Need Aspirin: No Condition: Fair Referrals: PRIMARY CAREMD [Primary Care Provider] - 3-5 Days Time of Disposition: 16:01 (awaiting acceptance)
--- NOTE | 2017-09-24 12:00 | Cat Scan Report ---
CT HEAD WITHOUT CONTRAST: HISTORY: Loss of consciousness, fall, head injury. TECHNIQUE: Sequential 2.5mm CT images. COMPARISON: 09/08/17. FINDINGS: Metallic leads terminating within the left lateral ventricle and medial left temporal lobe generate artifact and are unchanged in position. Large area of encephalomalacia in the right anterior temporal region is unchanged measuring 5.2 x 3.5 cm in axial plane. There is no evidence for hemorrhage, mass, extra-axial fluid collection or hydrocephalus. Volume loss in the cerebellum is stable. The sinuses and mastoid air cells are clear. IMPRESSION: No acute intracranial process is identified. Chronic findings as outlined above which are unchanged since 09/08/17.
--- NOTE | 2017-09-24 12:01 | Cat Scan Report ---
CT SCAN OF THE CERVICAL SPINE: HISTORY: Neck pain after fall. TECHNIQUE: Contiguous 1.25 mm axial images of the cervical spine were obtained. Sagittal and coronal reformatted images. FINDINGS: There is normal alignment of the cervical spine. The body, pedicles and posterior ligaments are intact. No evidence of fracture or subluxation is seen. Moderate degenerative disc disease at C5-6 and C6-7 is noted. The facet joints are unremarkable. The spinal canal appears normal. The prevertebral soft tissues appear normal. IMPRESSION: Mild cervical spondylosis. No acute process is noted.
[2017-09-24 12:36] LABS: Basophils % (Auto) 0.5 % (0.0-1.8); Eosinophils % (Auto) 4.5 % (0.0-4.3); Hematocrit 43.8 % (35.5-45.6); Hemoglobin 14.3 gm/dl (11.8-15.2); Mean Corpuscular HGB Conc 33 % (32-34); Mean Corpuscular Hemoglobin 27 pg (28-32); Mean Corpuscular Volume 83 fl (84-94); Platelet Count 255 K/mm3 (140-440); Red Blood Count 5.31 M/mm3 (3.65-5.03); Red Cell Distribution Width 16.1 % (13.2-15.2); White Blood Count 4.8 K/mm3 (4.5-11.0)
[2017-09-24 12:52] LABS: INR 0.88 (0.87-1.13)
[2017-09-24 12:53] LABS: Partial Thromboplastin Time 33.3 Sec. (24.2-36.6)
[2017-09-24 13:15] LABS: Creatine Kinase MB 2.4 ng/mL (0.0-4.0)
[2017-09-24 13:16] LABS: Alanine Aminotransferase 17 units/L (7-56); Albumin 4.6 g/dL (3.9-5); Albumin/Globulin Ratio 1.6 %; Alkaline Phosphatase 95 units/L (35-129); Anion Gap 22 mmol/L; BUN/Creatinine Ratio 10; Blood Urea Nitrogen 9 mg/dL (9-20); Calcium 9.7 mg/dL (8.4-10.2); Carbon Dioxide 24 mmol/L (22-30); Chloride 100.3 mmol/L (98-107); Creatine Kinase 224 units/L (55-170); Glucose 92 mg/dL (75-100); Sodium 142 mmol/L (137-145); Total Protein 7.4 g/dL (6.3-8.2)
[2017-09-24 23:26] LABS: Urine Drugs of Abuse Note Disclamer
[2017-09-24 23:41] LABS: Bilirubin,Urine NEG (Negative); Blood,Urine NEG (Negative); Ketones,Urine NEG (Negative); Leukocyte Esterase,Urine NEG (Negative); Mucus,Urine FEW /HPF; Nitrite,Urine NEG (Negative); Protein,Urine <15 mg/dL mg/dL (Negative); Urobilinogen,Urine < 2.0 mg/dL (<2.0)
[2017-09-25] MEDS: LaMICtal PO SCH ×3 (01:00→22:33)
[2017-09-25] MEDS: VIMPAT PO SCH ×2 (09:58→22:33)
[2017-09-25] MEDS: FLOMAX PO SCH (09:58)
--- NOTE | 2017-09-25 18:09 | Consultation ---
History of Present Illness - Reason for Consult Consult date: 09/25/17 Reason for consult: psychiatric evaluation - Chief Complaint Chief complaint: "I didn't want to miss my meds and took more." - History of Present Psychiatric Illness The patient is a 57-year-old male presenting with chief complaint of fall. The patient has a history of epilepsy since age 23 years old. He reports petit mal seizures about once every 1-2 months. He says he is on 4 seizure medications and has a vagus nerve stimulator. He has an appointment with a neurologist at [facility] 10/06/2017. Per the record the patient was a poor historian yesterday. Per the record he denied suicidal ideation but when asked if he is having thoughts of killing anyone else the patient replies "my !" Today he denies every saying he wanting to hurt her. He says they are going through a divorce. She reportedly had his car repossessed and is trying to have his house sold. He says she is trying to harm him mentally, but he does not want to hurt her. Reji Harding is his neighbor and is his close friend and boss. Lori asked for Reji Harding to be contacted. Reji reports he knows Lori very well. He says Lori has been under stress from the divorce, but he is unaware of Lori having any intentions to harm his . He describes Lori to be confused and hostile verbally after a seizure. He says this always resolves and after 2-3 days he is back to himself. He says he gives Lori time off when he needs it. He takes him to work since Lori cannot drive. Lori thinks he had a seizure. He remembers missing a least a dose of seizure medication and then took medication. He said he felt strange after taking it. He is not sure what happened exactly but knows he woke up with his neck hurting. He denies a history of schizophrenia. He denies every being diagnosed with a mental health condition. He says he does not take medications for mental health conditions. He denies depression or anxiety. He denies psychotic symptoms. He adamantly denies suicidal or homicidal ideation. Medications and Allergies Allergies Allergy/AdvReac Type Severity Reaction Status Date / Time No Known Allergies Allergy Verified 05/31/17 00:22 Home Medications Medication Instructions Recorded Confirmed Last Taken Type QUEtiapine [SEROquel] 25 mg PO BID 05/31/17 09/24/17 05/30/17 History Lacosamide [Vimpat] 150 mg PO BID 90 Days tablet 06/01/17 09/24/17 Unknown Rx Tamsulosin [Flomax] 0.4 mg PO QDAY #90 capsule 06/01/17 09/24/17 Unknown Rx lamoTRIgine [LaMICtal] 200 mg PO BID 90 Days tablet 06/01/17 09/24/17 Unknown Rx Naproxen Sodium [Aleve TAB] 220 mg PO Q8H PRN #30 tablet 09/08/17 09/24/17 Unknown Rx Active Meds: Active Medications Lacosamide (Vimpat) 150 mg PO BID URIAH Stop: 09/29/17 09:59 Last Admin: 09/25/17 09:58 Dose: 150 mg Lamotrigine (Lamictal) 200 mg PO BID URIAH Stop: 09/28/17 22:59 Last Admin: 09/25/17 09:58 Dose: 200 mg Quetiapine Fumarate (Seroquel) 25 mg PO BID URIAH Stop: 09/28/17 22:59 Last Admin: 09/25/17 09:58 Dose: 25 mg Tamsulosin HCl (Flomax) 0.4 mg PO DAILY URIAH Stop: 09/29/17 09:59 Last Admin: 09/25/17 09:58 Dose: 0.4 mg Past psychiatric history - Past Medical History Past Medical History: seizures Past Surgical History: Other (vagus nerve stimulator) - past Psychiatric treatment and history psychiatric treatment history: denies - Social History Social history: , Lives alone, other (he denies alcohol or illicit substance use. He says he did use marijuana in the past for seizures.) Mental Status Exam - Vital signs Last Vital Signs Temp 98.3 F 09/25/17 09:08 Pulse 62 09/25/17 11:52 Resp 18 09/25/17 09:08 BP 125/72 09/25/17 11:52 Pulse Ox 94 09/25/17 09:08 - Exam Orientation: time, place, person Affect: normal Mood: appropriate Thought content: other (no SI/HI) Thought Process: Intact Perceptions: none Speech: normal rate and pattern Concentration: focused Motor activity: normal Level of consciousness: alert Memory: Intact Sleep Symptoms: None Interaction: cooperative Mini mental status exam(if necessary): 24-30 (MMSE 29/30) Results Result Diagrams: 09/24/17 12:20 09/24/17 12:20 All other labs normal. Assessment and Plan Assessment and plan: Impression: He made a homicidal statement. He denies homicidal ideation. He does not recall saying it. He is on 1013. Collateral from his close friend Reji Harding indicates no concerns about mental health conditions or homicidal threat. Patient report and collateral from Mr. Harding are consistent. The homicidal statement is not caused by a psychiatric condition. Any homicidal statement was volitional in nature or a result of a non psychiatric condition. Recommendation: Follow up in 24 hours to determine if his current condition remains the same and he maintains denial of homicidal ideation.
[2017-09-26 09:43] VITALS: BP 125/69
[2017-09-26] MEDS: FLOMAX PO SCH (11:28)
[2017-09-26] MEDS: LaMICtal PO SCH (11:28)
--- NOTE | 2017-09-26 12:27 | Progress Note ---
Subjective - Reason for Consult Consult date: 09/26/17 Reason for consult: Psycgiatry Follow-up - Chief Complaint Chief complaint: "How are you" The patient is a 57-year-old male presenting with chief complaint of fall. The patient has a history of epilepsy since age 23 years old. He reports petit mal seizures about once every 1-2 months. Today patient is calm and cooperative during the assessment. He stated that he has an appt with his neurologist in a week. He denies wanting to kill his or anyone else. He stated that his friend Reji Harding takes him to his appts. 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 He denies having a mental health dx. He denies SI/HI's and AVH's. He denies sleep disturbance and a poor appetite. He denies any side effects of his medications. Mental Status Exam - Vital signs Last Vital Signs Temp 98.1 F 09/26/17 08:41 Pulse 66 09/26/17 08:41 Resp 20 09/26/17 09:44 BP 125/69 09/26/17 08:41 Pulse Ox 98 09/26/17 09:44 - Exam Narrative exam: MSE: Appearance: calm, cooperative Behavior: regular eye contact Speech: regular rate and tone Mood: "okay" Affect: congruent to mood Thought Process: circumstantial Thought Content: denies SI/HI's and AVH's Motor Activity: sitting up in bed Cognition: A/Ox3 Insight: fair Judgment: fair Assessment and Plan Impression: Hx of Epilepsy. Collateral from his close friend Reji Harding indicates no concerns about mental health conditions or homicidal threat. Patient's report and collateral information from Mr. Harding are consistent. Patient is no threat to others. Recommendation/Plan: Rescind 1013. Patient has a follow-up with his neurologist at [place] 10/06/2017. Discussed possible side effects (SJS) of Lamictal with patient.
[2017-09-26] MEDS: VIMPAT PO SCH (15:22)
== END 2017-09-26 18:53 ==
LOC: EEVIPCON 10:41 → ED 10:41
DX: S16.1XXA Strain of muscle, fascia and tendon at neck level, initial encounter (principal); R45.850 Homicidal ideations; I10 Essential (primary) hypertension; R56.9 Unspecified convulsions; F12.10 Cannabis abuse, uncomplicated; F17.200 Nicotine dependence, unspecified, uncomplicated; W19.XXXA Unspecified fall, initial encounter; Y93.89 Activity, other specified; Y99.8 Other external cause status; Y92.89 Other specified places as the place of occurrence of the external cause
CPT/HCPCS: 36415; 70450; 72125; 80053; 80307; 81001; 82550; 82553; 83735; 84484; 85025; 85610; 85730; 93005; 93010; 99285; G0480; 80320

== ENCOUNTER 2019-03-16 03:45 | Emergency (ER) | payer MEDICARE ==
[2019-03-16 04:56] LABS: Hematocrit 41.3 % (35.5-45.6); Hemoglobin 13.7 gm/dl (11.8-15.2); Mean Corpuscular HGB Conc 33 % (32-34); Mean Corpuscular Volume 84 fl (84-94); Platelet Count 199 K/mm3 (140-440); Red Blood Count 4.94 M/mm3 (3.65-5.03)
[2019-03-16 05:10] LABS: BUN/Creatinine Ratio 10; Blood Urea Nitrogen 13 mg/dL (9-20); Calcium 8.9 mg/dL (8.4-10.2); Hemolysis Index 30
--- NOTE | 2019-03-16 06:13 | Emergency Department Report ---
ED General Adult HPI - General Chief complaint: Seizure Stated complaint: AMS Time Seen by Provider: 03/16/19 06:12 Source: patient, EMS Mode of arrival: Stretcher Limitations: No Limitations - History of Present Illness Initial comments: This is a 59 year old man status post a generalized seizure this morning. He is now awake and alert. He missed an injury to his right hand and tongue. Otherwise he has no complaints at this time. He states he has been on multiple seizure medicines in the past to include Keppra which he is not taking now. He did not take his medicine yet this morning. He is not experiencing any other pain or recent intercurrent symptoms. Patient has been admitted to this hospital after recurrent seizures in the past: Hospital course: Patient is a 57 years old with past medical history of grand mal seizures present his emergency department presents by EMS after having multiple seizures and post ictal state and altered mental status. He ran out of his anticonvulsant medication and presented with seziure. Patient was diagnosed with Status epilepticus, Metabolic encephalopathy and Hypertension. CT of the head shows no acute intracranial abnormality. He has been treated with IV fluid, anticonvulsants and antihypertensive medications. Patient co-managed by neurology. Patient was seizure free during the course of hospitalization. Patient was counseled to adhere to his anticonvulsant medications and patient agreed upon course of action. Patient advised to follow-up with Neurology and his primary care provider as outpatient. Discharge Diagnosed Status epilepticus Postictal state Metabolic encephalopathy Hypertension -: Sudden Location: mouth (tongue), right, upper extremity Improves with: none Worsens with: none Associated Symptoms: denies other symptoms (except as above indicated) - Related Data Home Medications Medication Instructions Recorded Confirmed Last Taken QUEtiapine [SEROquel] 25 mg PO BID 05/31/17 09/24/17 05/30/17 Previous Rx's Medication Instructions Recorded Last Taken Type Lacosamide [Vimpat] 150 mg PO BID 90 Days tablet 06/01/17 Unknown Rx Tamsulosin [Flomax] 0.4 mg PO QDAY #90 capsule 06/01/17 Unknown Rx lamoTRIgine [LaMICtal] 200 mg PO BID 90 Days tablet 06/01/17 Unknown Rx Naproxen Sodium [Aleve TAB] 220 mg PO Q8H PRN #30 tablet 09/08/17 Unknown Rx Allergies Allergy/AdvReac Type Severity Reaction Status Date / Time No Known Allergies Allergy Verified 05/31/17 00:22 ED Review of Systems ROS: Stated complaint: AMS Other details as noted in HPI Constitutional: denies: chills, fever Eyes: denies: eye pain, eye discharge, vision change ENT: as per HPI. denies: ear pain, throat pain Respiratory: denies: cough, shortness of breath, wheezing Cardiovascular: denies: chest pain, palpitations Endocrine: no symptoms reported Gastrointestinal: denies: abdominal pain, nausea, diarrhea Genitourinary: denies: urgency, dysuria Musculoskeletal: as per HPI. denies: back pain, joint swelling, arthralgia Skin: denies: rash, lesions Neurological: denies: headache, weakness, paresthesias Psychiatric: denies: anxiety, depression Hematological/Lymphatic: denies: easy bleeding, easy bruising ED Past Medical Hx - Past Medical History Hx Hypertension: Yes Hx Seizures: Yes - Surgical History Additional Surgical History: cerebral shunt - Social History Smoking Status: Current Some Day Smoker Substance Use Type: None - Medications Home Medications: Home Medications Medication Instructions Recorded Confirmed Last Taken Type QUEtiapine [SEROquel] 25 mg PO BID 05/31/17 09/24/17 05/30/17 History Lacosamide [Vimpat] 150 mg PO BID 90 Days tablet 06/01/17 09/24/17 Unknown Rx Tamsulosin [Flomax] 0.4 mg PO QDAY #90 capsule 06/01/17 09/24/17 Unknown Rx lamoTRIgine [LaMICtal] 200 mg PO BID 90 Days tablet 06/01/17 09/24/17 Unknown Rx Naproxen Sodium [Aleve TAB] 220 mg PO Q8H PRN #30 tablet 09/08/17 09/24/17 Unknown Rx ED Physical Exam - General Limitations: No Limitations General appearance: alert, in no apparent distress - Head Head exam: Present: atraumatic, normocephalic - Eye Eye exam: Present: normal appearance. Absent: scleral icterus - ENT ENT exam: Present: mucous membranes moist, other (distal and fairly superficial tongue abrasion) - Neck Neck exam: Present: normal inspection. Absent: tenderness, meningismus - Respiratory Respiratory exam: Present: normal lung sounds bilaterally. Absent: respiratory distress - Cardiovascular Cardiovascular Exam: Present: regular rate, normal rhythm. Absent: systolic murmur, diastolic murmur, rubs, gallop - GI/Abdominal GI/Abdominal exam: Present: soft, normal bowel sounds. Absent: distended, tenderness, guarding, rebound - Rectal Rectal exam: Present: deferred - Extremities Exam Extremities exam: Present: other (soft tissue swelling, tenderness and possible deformity of the right fifth metacarpal. Otherwise full range of motion) - Back Exam Back exam: Present: normal inspection - Neurological Exam Neurological exam: Present: alert, oriented X3 - Psychiatric Psychiatric exam: Present: normal affect, normal mood - Skin Skin exam: Present: warm, dry, intact, normal color. Absent: rash ED Course Vital Signs 03/16/19 03/16/19 04:11 09:05 Temperature 98.6 F Pulse Rate 76 49 L Respiratory 12 16 Rate Blood Pressure 166/87 Blood Pressure 178/84 [Right] O2 Sat by Pulse 98 94 Oximetry - Reevaluation(s) Reevaluation #1: Patient is at his neurological baseline. He said no further seizure activity. He states he has all his medicines at home. He states his doctor is Ankur Rock neurologist at [facility] [place]. He states he is hoping to go back to driving with a 6 month seizure-free. It has been emphasized to the patient that he should not drive and that he does need to be cleared his neurologist to do so. In any case he is appropriate for outpatient follow-up at this point. He should consult with his neurologist concerning his Keppra dosing and certainly not drive. 03/16/19 09:36 ED Medical Decision Making - Lab Data Result diagrams: 03/16/19 04:42 03/16/19 04:38 Laboratory Results - last 24 hr 03/16/19 03/16/19 04:38 04:42 WBC 6.0 RBC 4.94 Hgb 13.7 Hct 41.3 MCV 84 MCH 28 MCHC 33 RDW 16.0 H Plt Count 199 Sodium 140 Potassium 4.0 Chloride 105.2 Carbon Dioxide 23 Anion Gap 16 BUN 13 Creatinine 1.3 Estimated GFR > 60 BUN/Creatinine Ratio 10 Glucose 99 Calcium 8.9 Critical care attestation.: If time is entered above; I have spent that time in minutes in the direct care of this critically ill patient, excluding procedure time. ED Disposition Clinical Impression: Generalized seizure, Generalized seizure disorder Abrasion of tongue Qualifiers: Encounter type: initial encounter Qualified Code(s): S00.512A - Abrasion of oral cavity, initial encounter Disposition: TO HOME OR SELFCARE Is pt being admited?: No Does the pt Need Aspirin: No Condition: Stable Instructions: Epilepsy (ED) Additional Instructions: Call your neurologist regarding the seizure today for recommendations our ER medication dosing. Follow up with her neurologist. Do not drive. Return as needed any acute change or problem. Referrals: KALA ELMORE MD [Primary Care Provider] - 3-5 Days usual, neurologist [Other] - 24 Hours Time of Disposition: 09:40
[2019-03-16] MEDS ORDERED: KEPPRA 1,000 MG/NS 0.75% 100ML 1,000 MG/100 ML BAG IV ONE (06:43)
--- NOTE | 2019-03-16 07:02 | XRay Report ---
PROCEDURE: XR HAND 2V RT TECHNIQUE: AP and lateral views right hand HISTORY: pain injury COMPARISONS: None FINDINGS: Possible old right fifth metacarpal fracture deformity. No acute fractures. Osteoarthrosis at the fir st carpometacarpal and metacarpal phalangeal joints and diffusely throughout the distal interphalange al joints. No definite erosion. IMPRESSION: No acute fracture identified. Suggested old fifth metacarpal fracture deformity. This document is electronically signed by Jan Macedo MD., Mar 16 2019 07:00:36 AM ET
[2019-03-16 10:55] VITALS: BP 170/92
== END 2019-03-16 11:17 | disposition home or self-care (01) ==
LOC: ED 03:45
DX: S00.512A Abrasion of oral cavity, initial encounter (principal); G40.909 Epilepsy, unspecified, not intractable, without status epilepticus; I10 Essential (primary) hypertension; X58.XXXA Exposure to other specified factors, initial encounter; Y92.89 Other specified places as the place of occurrence of the external cause; Y93.89 Activity, other specified; Y99.8 Other external cause status; F17.200 Nicotine dependence, unspecified, uncomplicated
CPT/HCPCS: 36415; 73120; 80048; 85027; 96365; 99284; J1953

== ENCOUNTER 2019-04-14 00:44 | Emergency (ER) | payer MEDICARE ==
[2019-04-14 01:20] LABS: Hematocrit 38.2 % (35.5-45.6); Hemoglobin 13.3 gm/dl (11.8-15.2); Mean Corpuscular HGB Conc 35 % (32-34); Mean Corpuscular Volume 81 fl (84-94); Platelet Count 201 K/mm3 (140-440); Red Cell Distribution Width 15.9 % (13.2-15.2)
[2019-04-14 01:41] LABS: BUN/Creatinine Ratio 12; Blood Urea Nitrogen 14 mg/dL (9-20); Calcium 8.7 mg/dL (8.4-10.2); Hemolysis Index 124
--- NOTE | 2019-04-14 03:53 | Emergency Department Report ---
HPI - General Chief Complaint: Seizure Time Seen by Provider: 04/14/19 03:43 - HPI HPI: 59-year-old -[place] male presents to the emergency department via EMS after he had a witnessed seizure at home just prior to arrival. Currently, the patient is awake, alert, oriented and has no complaints. He does have a generalized seizure disorder for which he takes Lamictal and Vimpat and says he is compliant with the medication. He last had a seizure about one month ago. He has a neurologist, Dr. Jarrell, who he has an appointment with coming up on May 02. He denies any tobacco or illicit drug use. No recent travel or sick contacts at home. ED Past Medical Hx - Past Medical History Previous Medical History?: Yes Hx Hypertension: Yes Hx Seizures: Yes - Surgical History Additional Surgical History: cerebral shunt - Social History Smoking Status: Never Smoker - Medications Home Medications: Home Medications Medication Instructions Recorded Confirmed Last Taken Type QUEtiapine [SEROquel] 25 mg PO BID 05/31/17 09/24/17 05/30/17 History Lacosamide [Vimpat] 150 mg PO BID 90 Days tablet 06/01/17 09/24/17 Unknown Rx Tamsulosin [Flomax] 0.4 mg PO QDAY #90 capsule 06/01/17 09/24/17 Unknown Rx lamoTRIgine [LaMICtal] 200 mg PO BID 90 Days tablet 06/01/17 09/24/17 Unknown Rx Naproxen Sodium [Aleve TAB] 220 mg PO Q8H PRN #30 tablet 09/08/17 09/24/17 Unknown Rx ED Review of Systems ROS: Stated complaint: SEIZURE Other details as noted in HPI Comment: All other systems reviewed and negative Constitutional: denies: chills, fever Eyes: denies: eye pain, vision change ENT: denies: ear pain, throat pain Respiratory: denies: cough, shortness of breath Cardiovascular: denies: chest pain, palpitations Gastrointestinal: denies: abdominal pain, vomiting Genitourinary: denies: dysuria, discharge Musculoskeletal: denies: back pain, arthralgia Skin: denies: rash, lesions Neurological: other (seizure). denies: headache Physical Exam - Physical Exam Vital Signs: Vital Signs 04/14/19 04/14/19 04/14/19 00:59 01:00 01:03 Temperature 9.1 F L Pulse Rate 82 81 Respiratory 21 28 H 18 Rate Blood Pressure [Right] O2 Sat by Pulse 95 95 99 Oximetry 04/14/19 04/14/19 01:14 01:16 Temperature 98.5 F Pulse Rate Respiratory Rate Blood Pressure 157/88 [Right] O2 Sat by Pulse Oximetry Physical Exam: GENERAL: The patient is well-developed well-nourished. HENT: Normocephalic. Atraumatic. Patient has moist mucous membranes. EYES: Extraocular motions are intact. Pupils equal reactive to light bilaterally. No nystagmus. NECK: Supple. Trachea is midline. CHEST/LUNGS: Clear to auscultation. There is no respiratory distress noted. HEART/CARDIOVASCULAR: Regular. There is no tachycardia. There is no murmur. ABDOMEN: Abdomen is soft, nontender. Patient has normal bowel sounds. There is no abdominal distention. SKIN: Skin is warm and dry. NEURO: The patient is awake, alert, and oriented. The patient is cooperative. The patient has no focal neurologic deficits. The patient has normal speech. Cranial nerves II through XII grossly intact. No pronator drift. No dysmetria. MUSCULOSKELETAL: There is no tenderness or deformity. There is no limitation range of motion. There is no evidence of acute injury. ED Course Vital Signs 04/14/19 04/14/19 04/14/19 00:59 01:00 01:03 Temperature 9.1 F L Pulse Rate 82 81 Respiratory 21 28 H 18 Rate Blood Pressure [Right] O2 Sat by Pulse 95 95 99 Oximetry 04/14/19 04/14/19 01:14 01:16 Temperature 98.5 F Pulse Rate Respiratory Rate Blood Pressure 157/88 [Right] O2 Sat by Pulse Oximetry ED Medical Decision Making - Lab Data Result diagrams: 04/14/19 01:09 04/14/19 01:09 - Medical Decision Making This patient presents to the emergency department after having a witnessed seizure at home just prior to arrival. The patient does have a seizure history for which he is allegedly compliant with his Vimpat and Lamictal. At the time of my examination, the patient is awake, alert, oriented and without any comp laints. He does not have any focal, motor or sensory deficits and his cranial nerves are intact. For all these reasons, I do not feel that it was necessary to get CT imaging of the head at this time. His labs have been unremarkable. He has been reevaluated multiple times over the more than 3 hours he has been in the emergency department. He has good follow-up with a neurologist. He has an appointment on the of next month but has been instructed to try and get an appointment sooner. He is also instructed to return to the emergency department with any further seizure-like activity, worsening of his symptoms, or with any acute distress. - Differential Diagnosis seizures, hypoglycemia, electrolyte abnormalities Critical Care Time: No Critical care attestation.: If time is entered above; I have spent that time in minutes in the direct care of this critically ill patient, excluding procedure time. ED Disposition Clinical Impression: Seizure disorder Hypertension Qualifiers: Hypertension type: essential hypertension Qualified Code(s): I10 - Essential (primary) hypertension Disposition: TO HOME OR SELFCARE Is pt being admited?: No Condition: Stable Instructions: Epilepsy (ED), Hypertension (ED), Recurrent Seizures Adult (ED) Additional Instructions: Please follow-up with your primary care physician and neurologist in the next few days. Continue taking your seizure medication. Return to the emergency department with any further seizure-like activity, worsening of your symptoms, or with any acute distress. Referrals: Neurologist, Your [Other] - 2-3 Days Time of Disposition: 03:53
[2019-04-14 05:23] VITALS: BP 146/76
== END 2019-04-14 05:32 | disposition home or self-care (01) ==
LOC: ED 00:44
DX: G40.909 Epilepsy, unspecified, not intractable, without status epilepticus (principal); I10 Essential (primary) hypertension; Z79.899 Other long term (current) drug therapy
CPT/HCPCS: 36415; 80048; 85027; 99284

== ENCOUNTER 2019-07-24 09:42 | Emergency (ER) | payer MEDICARE ==
[2019-07-24 10:25] LABS: Hematocrit 43.5 % (35.5-45.6); Hemoglobin 14.2 gm/dl (11.8-15.2); Mean Corpuscular HGB Conc 33 % (32-34); Mean Corpuscular Volume 84 fl (84-94); Platelet Count 213 K/mm3 (140-440); Red Blood Count 5.19 M/mm3 (3.65-5.03); Red Cell Distribution Width 16.8 % (13.2-15.2)
[2019-07-24 10:27] LABS: BUN/Creatinine Ratio 9; Blood Urea Nitrogen 10 mg/dL (9-20); Calcium 9.1 mg/dL (8.4-10.2); Hemolysis Index 13
[2019-07-24] MEDS ORDERED: LORazepam 2 MG/ML VIAL IV ONE ×2 (10:57→11:15)
[2019-07-24] MEDS ORDERED: LORazepam 2 MG/ML VIAL ONE (10:59)
--- NOTE | 2019-07-24 11:03 | Emergency Department Report ---
<LOLA GUERRERO - Last Filed: 07/24/19 18:18> ED Seizure HPI - General Chief Complaint: Seizure Stated Complaint: SEIZURE Time Seen by Provider: 07/24/19 09:51 Source: patient, EMS Mode of arrival: Stretcher Limitations: Other - History of Present Illness Initial Comments: 59 yo AA M pt with hx of HTN and Seizure Disorder presents via EMS for seizure x [employer]. Pt is alert and oriented to place and self. States seizure occured at his hotel room and is unsure if seizure was witness or who called EMS. Pt denies headache, chest pain, SOB, abdominal pain. He reports he has not taken his seizure med-Dilantin- for 3-[address] Jarrell Neuorologkay. Denies being on any other seizure meds. Complains of tongue pain-states bit during seizure. Description of Episode: post-event confusion Trauma: Yes (bit tongue) Seizure History: known seizure disorder, history of non-compliance Associated Symptoms: denies other symptoms Treatments Prior to Arrival: none - Related Data Home Medications Medication Instructions Recorded Confirmed Last Taken QUEtiapine [SEROquel] 25 mg PO BID 05/31/17 09/24/17 05/30/17 Previous Rx's Medication Instructions Recorded Last Taken Type Lacosamide [Vimpat] 150 mg PO BID 90 Days tablet 06/01/17 Unknown Rx Tamsulosin [Flomax] 0.4 mg PO QDAY #90 capsule 06/01/17 Unknown Rx lamoTRIgine [LaMICtal] 200 mg PO BID 90 Days tablet 06/01/17 Unknown Rx Naproxen Sodium [Aleve TAB] 220 mg PO Q8H PRN #30 tablet 09/08/17 Unknown Rx Nystas/Diphen/Xyl Visc/Mylanta 30 ml MM Q4H PRN #120 ml 07/24/19 Unknown Rx [Magic Mouthwash] Phenytoin [Dilantin] 100 mg PO BID #60 capsule 07/24/19 Unknown Rx Allergies Allergy/AdvReac Type Severity Reaction Status Date / Time No Known Allergies Allergy Verified 05/31/17 00:22 ED Past Medical Hx - Past Medical History Previous Medical History?: Yes Hx Hypertension: Yes Hx Seizures: Yes - Surgical History Past Surgical History?: Yes Additional Surgical History: cerebral shunt - Social History Smoking Status: Current Every Day Smoker Substance Use Type: None - Medications Home Medications: Home Medications Medication Instructions Recorded Confirmed Last Taken Type QUEtiapine [SEROquel] 25 mg PO BID 05/31/17 09/24/17 05/30/17 History Lacosamide [Vimpat] 150 mg PO BID 90 Days tablet 06/01/17 09/24/17 Unknown Rx Tamsulosin [Flomax] 0.4 mg PO QDAY #90 capsule 06/01/17 09/24/17 Unknown Rx lamoTRIgine [LaMICtal] 200 mg PO BID 90 Days tablet 06/01/17 09/24/17 Unknown Rx Naproxen Sodium [Aleve TAB] 220 mg PO Q8H PRN #30 tablet 09/08/17 09/24/17 Unknown Rx Nystas/Diphen/Xyl Visc/Mylanta 30 ml MM Q4H PRN #120 ml 07/24/19 Unknown Rx [Magic Mouthwash] Phenytoin [Dilantin] 100 mg PO BID #60 capsule 07/24/19 Unknown Rx ED Physical Exam - General Limitations: Other General appearance: alert, postictal - Head Head exam: Present: atraumatic, other - Eye Eye exam: Present: normal appearance, PERRL, EOMI, scleral icterus, conjunctival injection - ENT ENT exam: Present: other (small laceration noted on left side of tongue, no active bleeding noted) - Neck Neck exam: Present: normal inspection - Respiratory Respiratory exam: Present: normal lung sounds bilaterally. Absent: respiratory distress - Cardiovascular Cardiovascular Exam: Present: regular rate, normal rhythm. Absent: systolic murmur, diastolic murmur, rubs, gallop - GI/Abdominal GI/Abdominal exam: Present: soft, distended, tenderness, rebound, normal bowel sounds, diminished bowel sounds - Rectal Rectal exam: Present: deferred - Extremities Exam Extremities exam: Present: normal inspection - Back Exam Back exam: Present: normal inspection, full ROM. Absent: tenderness - Neurological Exam Neurological exam: Present: alert, CN II-XII intact, motor sensory deficit - Psychiatric Psychiatric exam: Present: normal affect, normal mood - Skin Skin exam: Present: warm, dry, intact, normal color. Absent: rash ED Course - Reevaluation(s) Reevaluation #1: 07/24/19 11:06 Pt noted to be seizing, Ativan 1 mg IV ordered. Vitals stable. Awaiting dilantin loading dose Reevaluation #2: 07/24/19 13:45 Pt stated he has not been on dilantin x 3-4 months-Dilantin given IV. --levels still pending from lab. Pt resting in bed. Vitals wnl. Awaiting pt to return to baseline post Ativan and Dilantin. ED Medical Decision Making - Lab Data Result diagrams: 07/24/19 09:55 07/24/19 09:55 - Medical Decision Making Pt here for seizure x [employer]. Pt has been off his dilantin x 3-4 months. States he is to follow with his neurologist, Dr Jarrell, within the next few weeks. Pt received ativan 1 mg IV x 2 and Dilantin IV. Pt is now alert and oriented x 3. he denies any DUNLAP, vision changes, CP, SOB, or numbness/tingling/weakness. Pt to d/c home with refills of dilantin-pt states taking 100 mg BID. Recommend neurology f/u within the next few days. Pt instructed to refrain from driving. Strict return precautions discussed in detail with pt who states understanding. ED Disposition Clinical Impression: Seizure, Open wound of tongue due to bite Disposition: DC-01 TO HOME OR SELFCARE Is pt being admited?: No Condition: Stable Additional Instructions: please follow up with your neurologist, Dr. Jarrell, withing 1-2 days. Prescriptions: Phenytoin [Dilantin] 100 mg PO BID #60 capsule Nystas/Diphen/Xyl Visc/Mylanta [Magic Mouthwash] 30 ml MM Q4H PRN #120 ml PRN Reason: Pain, Moderate (4-6) Referrals: NAJMA BRADSHAWANTHONY MD ARVIN [Primary Care Provider] - 3-5 Days <MELANI CARTER - Last Filed: 07/25/19 06:08> ED Review of Systems ROS: Stated complaint: SEIZURE Other details as noted in HPI ED Course Vital Signs 07/24/19 07/24/19 07/24/19 09:51 11:42 13:50 Temperature 98.6 F 99 F Pulse Rate 74 90 96 H Respiratory 16 16 14 Rate Blood Pressure 157/82 172/88 168/89 [Left] O2 Sat by Pulse 100 100 100 Oximetry 07/24/19 07/24/19 19:29 20:10 Temperature 98.5 F Pulse Rate 72 Respiratory 18 18 Rate Blood Pressure 147/81 [Left] O2 Sat by Pulse 96 Oximetry ED Medical Decision Making - Lab Data Result diagrams: 07/24/19 09:55 07/24/19 09:55 - Medical Decision Making dilantin level ordered and sent however results not available due to lab machine issues. Pt was loaded based on history of dilantin noncompliance Critical care attestation.: If time is entered above; I have spent that time in minutes in the direct care of this critically ill patient, excluding procedure time. ED Disposition Is pt being admited?: No
[2019-07-24] MEDS ORDERED: PHENYTOIN 1,000 MG in SODIUM CHLORIDE 0.9% 250ML 250 ML IV ONE (11:34)
[2019-07-24] MEDS ORDERED: HYDROcodone/ACETAMINOPHEN 5-325 MG TAB PO ONE (18:22)
[2019-07-24 20:30] VITALS: BP 147/81
== END 2019-07-24 20:10 | disposition home or self-care (01) ==
LOC: ED 09:42
DX: S01.552A Open bite of oral cavity, initial encounter (principal); G40.909 Epilepsy, unspecified, not intractable, without status epilepticus; I10 Essential (primary) hypertension; F17.200 Nicotine dependence, unspecified, uncomplicated; Z79.899 Other long term (current) drug therapy; Y33.XXXA Other specified events, undetermined intent, initial encounter; Y93.89 Activity, other specified; Y92.59 Other trade areas as the place of occurrence of the external cause; Y99.8 Other external cause status
CPT/HCPCS: 36415; 80048; 80185; 85027; 93005; 93010; 96365; 96375; 99284; J1165; J2060; J7050

== ENCOUNTER 2019-08-02 07:17 | Emergency (ER) | payer MEDICARE ==
[2019-08-02] MEDS ORDERED: levETIRAcetam 1000 MG/NS 0.75% 1,000 MG/100 ML BAG IV ONE (07:50)
--- NOTE | 2019-08-02 08:07 | Emergency Department Report ---
ED General Adult HPI - General Chief complaint: Seizure Stated complaint: SEIZURE Time Seen by Provider: 08/02/19 07:34 Source: patient Mode of arrival: Ambulatory Limitations: No Limitations - History of Present Illness Initial comments: This is a 59 year old male with uncontrolled seizure disorder and likely medical noncompliance. He apparently had a generalized seizure this morning and bit his tongue. He doesn't know this name of his seizure medicine but thinks it might be Keppra. He takes his medicine twice a day he states. He is not admitting noncompliance. He states he hasn't seen a physician for 3 months. Denies any other injury fever chills headache or focal neurological changes or any intercurrent symptoms. -: Sudden Location: mouth Associated Symptoms: denies other symptoms - Related Data Home Medications Medication Instructions Recorded Confirmed Last Taken QUEtiapine [SEROquel] 25 mg PO BID 05/31/17 09/24/17 05/30/17 Previous Rx's Medication Instructions Recorded Last Taken Type Lacosamide [Vimpat] 150 mg PO BID 90 Days tablet 06/01/17 Unknown Rx Tamsulosin [Flomax] 0.4 mg PO QDAY #90 capsule 06/01/17 Unknown Rx lamoTRIgine [LaMICtal] 200 mg PO BID 90 Days tablet 06/01/17 Unknown Rx Naproxen Sodium [Aleve TAB] 220 mg PO Q8H PRN #30 tablet 09/08/17 Unknown Rx Nystas/Diphen/Xyl Visc/Mylanta 30 ml MM Q4H PRN #120 ml 07/24/19 Unknown Rx [Magic Mouthwash] Phenytoin [Dilantin] 100 mg PO BID #60 capsule 07/24/19 Unknown Rx amLODIPine [Norvasc] 5 mg PO DAILY #30 tab 08/02/19 Unknown Rx levETIRAcetam [Keppra TAB] 500 mg PO BID #60 tablet 08/02/19 Unknown Rx Allergies Allergy/AdvReac Type Severity Reaction Status Date / Time No Known Allergies Allergy Verified 05/31/17 00:22 ED Review of Systems ROS: Stated complaint: SEIZURE Other details as noted in HPI Constitutional: denies: chills, fever Eyes: denies: eye pain, eye discharge, vision change ENT: other. denies: ear pain, throat pain Respiratory: denies: cough, shortness of breath, wheezing Cardiovascular: denies: chest pain, palpitations Endocrine: no symptoms reported Gastrointestinal: denies: abdominal pain, nausea, diarrhea Genitourinary: denies: urgency, dysuria Musculoskeletal: denies: back pain, joint swelling, arthralgia Skin: denies: rash, lesions Neurological: other. denies: headache, weakness, numbness, paresthesias Psychiatric: denies: anxiety, depression Hematological/Lymphatic: denies: easy bleeding, easy bruising ED Past Medical Hx - Past Medical History Hx Hypertension: Yes Hx Seizures: Yes - Surgical History Additional Surgical History: cerebral shunt - Social History Smoking Status: Never Smoker Substance Use Type: None - Medications Home Medications: Home Medications Medication Instructions Recorded Confirmed Last Taken Type QUEtiapine [SEROquel] 25 mg PO BID 05/31/17 09/24/17 05/30/17 History Lacosamide [Vimpat] 150 mg PO BID 90 Days tablet 06/01/17 09/24/17 Unknown Rx Tamsulosin [Flomax] 0.4 mg PO QDAY #90 capsule 06/01/17 09/24/17 Unknown Rx lamoTRIgine [LaMICtal] 200 mg PO BID 90 Days tablet 06/01/17 09/24/17 Unknown Rx Naproxen Sodium [Aleve TAB] 220 mg PO Q8H PRN #30 tablet 09/08/17 09/24/17 Unknown Rx Nystas/Diphen/Xyl Visc/Mylanta 30 ml MM Q4H PRN #120 ml 07/24/19 Unknown Rx [Magic Mouthwash] Phenytoin [Dilantin] 100 mg PO BID #60 capsule 07/24/19 Unknown Rx amLODIPine [Norvasc] 5 mg PO DAILY #30 tab 08/02/19 Unknown Rx levETIRAcetam [Keppra TAB] 500 mg PO BID #60 tablet 08/02/19 Unknown Rx ED Physical Exam - General Limitations: No Limitations General appearance: alert, in no apparent distress - Head Head exam: Present: atraumatic, normocephalic - Eye Eye exam: Present: normal appearance - ENT ENT exam: Present: mucous membranes moist, other (distal tongue abrasion superficial) - Neck Neck exam: Present: normal inspection. Absent: tenderness, meningismus - Respiratory Respiratory exam: Present: normal lung sounds bilaterally. Absent: respiratory distress - Cardiovascular Cardiovascular Exam: Present: regular rate, normal rhythm. Absent: systolic murmur, diastolic murmur, rubs, gallop - GI/Abdominal GI/Abdominal exam: Present: soft, normal bowel sounds. Absent: distended, tenderness, guarding, rebound, rigid - Rectal Rectal exam: Present: deferred - Extremities Exam Extremities exam: Present: normal inspection - Back Exam Back exam: Present: normal inspection, full ROM. Absent: tenderness, CVA tenderness (R), CVA tenderness (L), muscle spasm, paraspinal tenderness, vertebral tenderness - Neurological Exam Neurological exam: Present: alert, oriented X3, CN II-XII intact. Absent: motor sensory deficit - Psychiatric Psychiatric exam: Present: normal affect, normal mood - Skin Skin exam: Present: warm, dry, intact, normal color. Absent: rash ED Course Vital Signs 08/02/19 08/02/19 08/02/19 07:25 07:30 07:46 Temperature 98.7 F Pulse Rate 68 78 70 Respiratory 18 22 22 Rate Blood Pressure 183/82 197/91 Blood Pressure 196/91 [Left] O2 Sat by Pulse 91 Oximetry 08/02/19 08/02/19 08/02/19 08:00 08:16 08:30 Temperature Pulse Rate 82 66 78 Respiratory 10 L 15 11 L Rate Blood Pressure 197/91 187/88 187/88 Blood Pressure [Left] O2 Sat by Pulse 97 Oximetry 08/02/19 08/02/19 08/02/19 08:46 09:00 09:09 Temperature Pulse Rate 65 84 Respiratory 15 18 Rate Blood Pressure 186/86 186/86 Blood Pressure [Left] O2 Sat by Pulse 96 Oximetry - Reevaluation(s) Reevaluation #1: Repeated the patient's blood pressure. It was 180s over 91 systolic taken twice. I told him that I would recommend blood pressure management with medica tion. He does not seem like he is willing to accept the prescription. That is up to him. I have encouraged him to follow-up on his apparent essential hypertension. 08/02/19 09:47 ED Medical Decision Making - Lab Data Result diagrams: 08/02/19 07:59 08/02/19 07:59 Laboratory Results - last 24 hr 08/02/19 08/02/19 07:59 07:59 WBC 8.5 RBC 5.19 H Hgb 14.3 Hct 43.2 MCV 83 L MCH 28 MCHC 33 RDW 16.3 H Plt Count 216 Lymph % (Auto) 18.1 [place] % (Auto) 8.5 H Eos % (Auto) 2.7 Baso % (Auto) 0.7 Lymph # 1.5 [place] # 0.7 Eos # 0.2 Baso # 0.1 Seg Neutrophils % 70.0 Seg Neutrophils # 6.0 Sodium 143 Potassium 4.3 Chloride 105.5 Carbon Dioxide 27 Anion Gap 15 BUN 11 Creatinine 0.8 Estimated GFR > 60 BUN/Creatinine Ratio 14 Glucose 107 H Calcium 8.9 Magnesium 2.00 Critical care attestation.: If time is entered above; I have spent that time in minutes in the direct care of this critically ill patient, excluding procedure time. ED Disposition Clinical Impression: Seizure Abrasion of tongue Qualifiers: Encounter type: initial encounter Qualified Code(s): S00.512A - Abrasion of oral cavity, initial encounter Hypertension Qualifiers: Hypertension type: unspecified Qualified Code(s): I10 - Essential (primary) hypertension Disposition: TO HOME OR SELFCARE Is pt being admited?: No Does the pt Need Aspirin: No Condition: Stable Instructions: Hypertension (ED), Recurrent Seizures Adult (ED) Additional Instructions: I would recommend treatment for your hypertension. I would recommend follow-up for your hypertension. Rx is written for blood pressure medicine and seizure medicine. Prescriptions: levETIRAcetam [Keppra TAB] 500 mg PO BID #60 tablet amLODIPine [Norvasc] 5 mg PO DAILY #30 tab Referrals: PRIMARY CARE, [Primary Care Provider] - 3-5 Days [facility] [Provider Group] - 3-5 Days Time of Disposition: 09:52
[2019-08-02 08:17] LABS: Basophils # (Auto) 0.1 K/mm3 (0.0-0.1); Basophils % (Auto) 0.7 % (0.0-1.8); Eosinophils # (Auto) 0.2 K/mm3 (0.0-0.4); Eosinophils % (Auto) 2.7 % (0.0-4.3); Hematocrit 43.2 % (35.5-45.6); Hemoglobin 14.3 gm/dl (11.8-15.2); Lymphocytes # (Auto) 1.5 K/mm3 (1.2-5.4); Lymphocytes % (Auto) 18.1 % (13.4-35.0); Mean Corpuscular HGB Conc 33 % (32-34); Mean Corpuscular Volume 83 fl (84-94); Monocytes # (Auto) 0.7 K/mm3 (0.0-0.8); Monocytes % (Auto) 8.5 % (0.0-7.3); Platelet Count 216 K/mm3 (140-440); Red Blood Count 5.19 M/mm3 (3.65-5.03); Red Cell Distribution Width 16.3 % (13.2-15.2)
[2019-08-02 08:36] LABS: BUN/Creatinine Ratio 14; Blood Urea Nitrogen 11 mg/dL (9-20); Calcium 8.9 mg/dL (8.4-10.2); Hemolysis Index 4
[2019-08-02 10:25] VITALS: BP 170/108
== END 2019-08-02 10:22 | disposition home or self-care (01) ==
LOC: ED 07:17
DX: S00.512A Abrasion of oral cavity, initial encounter (principal); R56.9 Unspecified convulsions; I10 Essential (primary) hypertension; X58.XXXA Exposure to other specified factors, initial encounter; Y93.89 Activity, other specified; Y92.89 Other specified places as the place of occurrence of the external cause; Y99.8 Other external cause status
CPT/HCPCS: 36415; 80048; 83735; 85025; 96365; 99283; J1953

== ENCOUNTER 2019-09-01 05:46 | Observation (INO) | payer MEDICARE ==
[2019-09-01] MEDS ORDERED: levETIRAcetam 1000 MG/NS 0.75% 1,000 MG/100 ML BAG IV ONE (06:26)
--- NOTE | 2019-09-01 06:40 | Emergency Department Report ---
HPI - General Chief Complaint: Seizure Time Seen by Provider: 09/01/19 06:19 - HPI HPI: 59-year-old -[place] male presents to the emergency department via EMS from home after he had a seizure. The patient has a known seizure disorder history, as well as a history of hypertension. The patient is also known for being noncompliant with his treatment. He was last here about one month ago for similar complaints. The patient is awake and able to answer most questions appropriately but still does appear slightly postictal. He thinks that his pr evious antiepileptic medication was Lamictal. However, there have also been records that show he has been on Dilantin and Keppra. He admits to medication noncompliance as he ran out of the medication and does not have a primary care physician or neurologist for follow-up. He denies any illicit drug use but does smoke cigarettes. He did not take anything and was not given anything for his symptoms prior to arrival today. ED Past Medical Hx - Past Medical History Previous Medical History?: Yes Hx Hypertension: Yes Hx Seizures: Yes - Surgical History Past Surgical History?: Yes Additional Surgical History: cerebral shunt - Social History Smoking Status: Current Every Day Smoker - Medications Home Medications: Home Medications Medication Instructions Recorded Confirmed Last Taken Type QUEtiapine [SEROquel] 25 mg PO BID 05/31/17 09/24/17 05/30/17 History Lacosamide [Vimpat] 150 mg PO BID 90 Days tablet 06/01/17 09/24/17 Unknown Rx Tamsulosin [Flomax] 0.4 mg PO QDAY #90 capsule 06/01/17 09/24/17 Unknown Rx lamoTRIgine [LaMICtal] 200 mg PO BID 90 Days tablet 06/01/17 09/24/17 Unknown Rx Naproxen Sodium [Aleve TAB] 220 mg PO Q8H PRN #30 tablet 09/08/17 09/24/17 Unknown Rx Nystas/Diphen/Xyl Visc/Mylanta 30 ml MM Q4H PRN #120 ml 07/24/19 Unknown Rx [Magic Mouthwash] Phenytoin [Dilantin] 100 mg PO BID #60 capsule 07/24/19 Unknown Rx amLODIPine [Norvasc] 5 mg PO DAILY #30 tab 08/02/19 Unknown Rx levETIRAcetam [Keppra TAB] 500 mg PO BID #60 tablet 08/02/19 Unknown Rx ED Review of Systems ROS: Stated complaint: SEIZURES Other details as noted in HPI Comment: All other systems reviewed and negative Constitutional: denies: chills, fever ENT: denies: ear pain, throat pain Respiratory: denies: cough, shortness of breath Cardiovascular: denies: chest pain, palpitations Gastrointestinal: denies: abdominal pain, vomiting Musculoskeletal: denies: back pain, arthralgia Skin: denies: rash, lesions Neurological: other (seizure). denies: headache Physical Exam - Physical Exam Vital Signs: Vital Signs 09/01/19 09/01/19 05:53 06:07 Temperature 98.2 F Pulse Rate 88 Respiratory 18 20 Rate Blood Pressure 202/99 O2 Sat by Pulse 97 97 Oximetry ED Course Vital Signs 09/01/19 09/01/19 05:53 06:07 Temperature 98.2 F Pulse Rate 88 Respiratory 18 20 Rate Blood Pressure 202/99 O2 Sat by Pulse 97 97 Oximetry ED Medical Decision Making - Lab Data Result diagrams: 09/01/19 06:37 09/01/19 07:39 - EKG Data -: EKG Interpreted by Co EKG shows normal: sinus rhythm, axis, intervals, QRS complexes, ST-T waves Rate: bradycardia (51 bpm) - EKG Data When compared to previous EKG there are: no significant change Interpretation: unchanged when compared t (07/24/19) - Radiology Data Radiology results: report reviewed CT BRAIN: 09/01/2019 INDICATION / CLINICAL INFORMATION: seizure, unsteady gait. COMPARISON: 09/24/2017 FINDINGS: BRAIN/INTRACRANIAL STRUCTURES: Unenhanced CT images of the brain were obtained and compared to the prior exam from 09/24/2017. Again seen are the metallic density leads extending into the left medial temporal lobe and left medial anterior thalamus, unchanged in position. These metallic leads and associated electronic device in the left calvarium creates some beam hardening artifact. 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 Ventricular size is within normal limits and unchanged. There is no gross evidence of acute superimposed ischemic injury, hemorrhage, or mass. There are no abnormal extra-axial fluid collections. EXTRACRANIAL STRUCTURES: Unremarkable. IMPRESSION: No acute abnormality. Chronic changes and postoperative changes, stable when compared to 09/24/2017. - Medical Decision Making This patient presents after having a seizure at home. He has a seizure history and a known history of medication noncompliance. The patient is able to answer some of the questions appropriately for orientation but still appears postictal or confused. He was loaded with a gram of Keppra. His labs have been unremarkable. It is unknown whether he is still on phenytoin, which she has been on in the past, but his phenytoin level is subtherapeutic at 1.7. A CT scan of the head without contrast was done that does not show any bleed, shift, mass, ischemia, or any other acute process. I attempted to ambulate this patient but he appears unstable and unable to ambulate without assistance. 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 The patient does not have any fever and there is no leukocytosis and therefore it is very low suspicion for a shunt infection or any other systemic infection. The patient will be admitted to the hospital for further evaluation and treatment and was accepted for admission by the [facility] Dr. Oliver singleton. - Differential Diagnosis epilepsy, hypoglycemia, dysrhythmia, CVA, TIA Critical Care Time: No Critical care attestation.: If time is entered above; I have spent that time in minutes in the direct care of this critically ill patient, excluding procedure time. ED Disposition Clinical Impression: Seizure, Noncompliance with medication regimen, Encephalopathy Hypertension Qualifiers: Hypertension type: essential hypertension Qualified Code(s): I10 - Essential (primary) hypertension Disposition: OP ADMIT IP TO THIS HOSP Is pt being admited?: Yes Condition: Fair Time of Disposition: 13:03
[2019-09-01 07:12] LABS: Hematocrit 41.6 % (35.5-45.6); Mean Corpuscular HGB Conc 34 % (32-34); Mean Corpuscular Volume 83 fl (84-94); Platelet Count 248 K/mm3 (140-440); Red Blood Count 5.04 M/mm3 (3.65-5.03); Red Cell Distribution Width 16.9 % (13.2-15.2)
[2019-09-01 08:03] LABS: Alanine Aminotransferase 17 units/L (7-56); Albumin 4.3 g/dL (3.9-5); BUN/Creatinine Ratio 19; Blood Urea Nitrogen 15 mg/dL (9-20); Hemolysis Index 1
--- NOTE | 2019-09-01 11:23 | Cat Scan Report ---
CT BRAIN: 09/01/2019 INDICATION / CLINICAL INFORMATION: seizure, unsteady gait. COMPARISON: 09/24/2017 FINDINGS: BRAIN/INTRACRANIAL STRUCTURES: Unenhanced CT images of the brain were obtained and compared to the pr ior exam from 09/24/2017. Again seen are the metallic density leads extending into the left medial temporal lobe and left media l anterior thalamus, unchanged in position. These metallic leads and associated electronic device in the left calvarium creates some beam hardening artifact. 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 Ventricular size is within normal limits and unchanged. There is no gross evidence of acute superimposed ischemic injury, hemorrhage, or mass. There are no a bnormal extra-axial fluid collections. EXTRACRANIAL STRUCTURES: Unremarkable. IMPRESSION: No acute abnormality. Chronic changes and postoperative changes, stable when compared to 09/24/2017. All CT scans at this location are performed using dose reduction to ALARA by means of automated expos ure control. Signer Name: Agus Watt MD Signed: 09/01/2019 11:19 AM Workstation Name: [id number]
[2019-09-01 12:04] LABS: Bacteria,Urine 1+ /HPF (Negative); Bilirubin,Urine NEG (Negative); Blood,Urine NEG (Negative); Color,Urine Yellow (Yellow); Mucus,Urine FEW /HPF; Protein,Urine <15 mg/dL mg/dL (Negative); Sperm,Urine FEW /HPF (NP); Urobilinogen,Urine < 2.0 mg/dL (<2.0)
[2019-09-01 12:11] LABS: Amphetamine Screen,Urine PRESUMPTIVE NEGATIVE; Benzodiazepines Screen,Urine PRESUMPTIVE NEGATIVE; Cannabinoid Screen,Urine PRESUMPTIVE NEGATIVE; Cocaine Screen,Urine PRESUMPTIVE NEGATIVE; Methadone Screen,Urine PRESUMPTIVE NEGATIVE; Opiate Screen,Urine PRESUMPTIVE NEGATIVE
--- NOTE | 2019-09-01 12:54 | History and Physical Report ---
History of Present Illness Date of admission: 09/01/19 11:37 Chief complaint: I think i had a seizure History of present illness: 59 YO Male with Seizure Disorder, HTN, Nicotine Dependence, Medication Noncompliance presents to ED for evaluation. Pt is confused, and does not fully remember what happened. Pt was in his usual states of health at his home. Pt recalls regaining consciousness feeling fatigued. EMS notified, and upon arrival the patient was found to be in distress, and transported to [facility]. Pt seen and evaluated in ED and found to have symptoms consistent with recurrent seizure. Pt placed in observation status and restarted on anit-epileptic therapy and admitted to medical floor. He admits to medication noncompliance due to running out of his medication. Pt denies fever, chills, CP, Palpitations, NVD, Headache, vision changes, Vertigo, skin rash, trauma, or recent ill contacts. Pt is postictal but is able to protect his airway without difficulty. Prior admission on 06/10/17 reviewed. All listed mediation reconciled at time of admission. 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 denies: alcohol abuse, prescription drug abuse Family history: hypertension Medications and Allergies Allergies Allergy/AdvReac Type Severity Reaction Status Date / Time No Known Allergies Allergy Verified 05/31/17 00:22 Home Medications Medication Instructions Recorded Confirmed Last Taken Type QUEtiapine [SEROquel] 25 mg PO BID 05/31/17 09/24/17 05/30/17 History Lacosamide [Vimpat] 150 mg PO BID 90 Days tablet 06/01/17 09/24/17 Unknown Rx Tamsulosin [Flomax] 0.4 mg PO QDAY #90 capsule 06/01/17 09/24/17 Unknown Rx lamoTRIgine [LaMICtal] 200 mg PO BID 90 Days tablet 06/01/17 09/24/17 Unknown Rx Naproxen Sodium [Aleve TAB] 220 mg PO Q8H PRN #30 tablet 09/08/17 09/24/17 Unknown Rx Nystas/Diphen/Xyl Visc/Mylanta 30 ml MM Q4H PRN #120 ml 07/24/19 Unknown Rx [Magic Mouthwash] Phenytoin [Dilantin] 100 mg PO BID #60 capsule 07/24/19 Unknown Rx amLODIPine [Norvasc] 5 mg PO DAILY #30 tab 08/02/19 Unknown Rx levETIRAcetam [Keppra TAB] 500 mg PO BID #60 tablet 08/02/19 Unknown Rx Review of Systems Constitutional: no weight loss, no weight gain, no fever, no chills Ears, nose, mouth and throat: no ear pain, no ear discharge, no tinnitis, no decreased hearing, no nose pain, no nasal congestion Cardiovascular: no orthopnea, no palpitations, no rapid/irregular heart beat, no syncope, no lightheadedness, no shortness of breath Respiratory: no cough, no cough with sputum, no excessive sputum, no hemoptysis, no shortness of breath Gastrointestinal: no nausea, no vomiting, no diarrhea, no constipation Genitourinary Male: no flank pain, no discharge, no urinary frequency, no urinary hesitancy, no nocturia Rectal: no pain, no incontinence, no bleeding Musculoskeletal: no neck stiffness, no neck pain, no shooting arm pain, no low back pain, no shooting leg pain Integumentary: no rash, no pruritis, no redness, no sores, no wounds Neurological: seizures, no paralysis, no weakness, no parathesias, no headaches, no migraines, no aphasia, no change in speech, no change in mentation, no memory loss Psychiatric: no anxiety, no memory loss, no change in sleep habits, no sleep disturbances, no insomnia, no hypersomnia, no change in appetite Endocrine: no cold intolerance, no heat intolerance, no polyphagia, no excessive thirst, no polydipsia, no polyuria, no nocturia Hematologic/Lymphatic: no easy bruising, no easy bleeding, no lymphadenopathy Allergic/Immunologic: no urticaria, no allergic rhinitis, no persistent infections, no anaphylaxis Exam - Constitutional Vitals: Temp Pulse Resp BP Pulse Ox 98.2 F 86 16 146/69 96 09/01/19 05:53 09/01/19 11:49 09/01/19 11:49 09/01/19 11:49 09/01/19 11:49 General appearance: Present: mild distress - EENT Eyes: Present: PERRL ENT: hearing intact, clear oral mucosa - Neck Neck: Present: supple, normal ROM - Respiratory Respiratory effort: normal Respiratory: bilateral: CTA - Cardiovascular Heart Sounds: Present: S1 & S2. Absent: rub, click - Extremities Extremities: pulses symmetrical, No edema Peripheral Pulses: within normal limits - Abdominal General gastrointestinal: Present: soft, non-tender, non-distended, normal bowel sounds Male genitourinary: Present: normal - Integumentary Integumentary: Present: clear, warm, dry - Musculoskeletal Musculoskeletal: generalized weakness - Psychiatric Psychiatric: appropriate mood/affect, intact judgment & insight - Neurologic Neurologic: CNII-XII intact, moves all extremities, no gait normal Results - Labs CBC & Chem 7: 09/01/19 06:37 09/01/19 07:39 Labs: Abnormal lab results 09/01/19 09/01/19 09/01/19 Range/Units 06:37 06:37 07:39 RBC 5.04 H (3.65-5.03) M/mm3 MCV 83 L (84-94) fl RDW 16.9 H (13.2-15.2) % Total Creatine Kinase 176 H (55-170) units/L Phenytoin 1.3 L (10.0-20.0) ug/mL Assessment and Plan - Patient Problems (1) Encephalopathy Current Visit: Yes Status: Acute Plan to address problem: CT Head, Neuro check, seizure precautions, fall precautions, supportive care. (2) Hypertension Current Visit: Yes Status: Acute Qualifiers: Hypertension type: essential hypertension Qualified Code(s): I10 - Essential (primary) hypertension Plan to address problem: Monitor bp q shift, continue medical management (3) Noncompliance with medication regimen Current Visit: Yes Status: Acute Plan to address problem: Pt counseled regarding noncompliance, Behavior change counseling +15min (4) Seizure Current Visit: Yes Status: Acute Plan to address problem: Resume AED therapy, Keppra level, Dilantin level, seizure precautions, neuro checks, aspiration precautions. (5) DVT prophylaxis Current Visit: Yes Status: Acute Plan to address problem: SCD to BLE while in bed.
[2019-09-01] MEDS ORDERED: ONDANSETRON 4 MG/2 ML INJ IV PRN (12:55)
[2019-09-01] MEDS ORDERED: ACETAMINOPHEN 325 MG TAB PO PRN (12:55)
[2019-09-01] MEDS ORDERED: ALBUTEROL 2.5 MG/3 ML NEBU IH PRN (12:55)
[2019-09-01] MEDS ORDERED: MAGIC MOUTHWASH 30ML MM PRN (12:56)
[2019-09-01] MEDS ORDERED: NAPROXEN SODIUM 220 MG PO PRN (12:56)
[2019-09-01] MEDS ORDERED: PHENYTOIN 100 MG/2 ML VIAL IV ONE (12:57)
[2019-09-01] MEDS ORDERED: SODIUM CHLORIDE 0.9% IV ONE (14:00)
[2019-09-01] MEDS ORDERED: PHENYTOIN IV ONE (14:00)
[2019-09-01] MEDS: amLODIPine 5 MG TAB PO SCH (15:30)
[2019-09-01] MEDS: QUEtiapine 25 MG TAB PO SCH ×2 (16:00→22:39)
[2019-09-01] MEDS: LACOSAMIDE 50 MG TAB PO SCH ×2 (16:00→22:39)
[2019-09-01] MEDS ORDERED: LACOSAMIDE 150 MG PO SCH (22:00)
[2019-09-01] MEDS ORDERED: TAMSULOSIN 0.4 MG CAP PO SCH (22:00)
[2019-09-01] MEDS: levETIRAcetam 500 MG TAB PO SCH (22:39)
[2019-09-01] MEDS: PHENYTOIN 100 MG CAPSULE.ER PO SCH (22:39)
[2019-09-01] MEDS: lamoTRIgine 100 MG TAB PO SCH (22:39)
--- NOTE | 2019-09-02 09:40 | Discharge Summary ---
Providers - Providers Date of Admission: 09/01/19 11:37 Date of discharge: 09/02/19 Attending physician: EDEL GIBBS Primary care physician: WASTE EXAMINER Hospitalization Condition: Stable Hospital course: Patient is a 59 YO Male with Seizure Disorder, HTN, Nicotine Dependence, and admittedly medical non-adherence who presented with AMS from recurrent seizures because he admits to medication noncompliance due to running out of his medications. He is on 3 seizure medications. He was re-started on seizure medication and observed overnight. Acute Encephalopathy Current Visit: Yes Status: Acute Plan to address problem: CT Head, Neuro check, seizure precautions, fall precautions, supportive care. Hypertension Current Visit: Yes Status: Acute Qualifiers: Hypertension type: essential hypertension Qualified Code(s): I10 - Essential (primary) hypertension Plan to address problem: Monitor bp q shift, continue medical management Noncompliance with medication regimen Current Visit: Yes Status: Acute Plan to address problem: Pt counseled regarding noncompliance, Behavior change counseling +15min Seizure Current Visit: Yes Status: Acute/Recurrent Plan to address problem: Resume AED therapy, Keppra level, Dilantin level, seizure precautions, neuro checks, aspiration precautions. DVT prophylaxis Current Visit: Yes Status: Acute Plan to address problem: SCD to BLE while in bed. Disposition: DC01 TO HOME OR SELFCARE Time spent for discharge: 36 minutes Core Measure Documentation - Palliative Care Palliative Care/ Comfort Measures: Not Applicable - Core Measures Any of the following diagnoses?: none - VTE Discharge Requirements Deep Vein Thrombosis/Pulmonary Embolism Present on Admission: No Has pt received <5 days of overlap therapy or INR<2.0: No Anticoagulant overlap therapy prescribed at discharge: No Contraindication No Overlap Therapy order at DC: Not Indicated Exam - Physical Exam Narrative exam: Gen: WDWN, NAD, Awake, Alert, Orientated HEENT: NCAT, EOMI, PERRL, OP Clear Neck: supple, no adenopathy, no thyromegaly, no JVD CVS/Heart: RRR, repeat HR 62 normal S1S2, pulses present bilaterally Chest/Lungs: CTA B, Symmetrical chest expansion, good air entry bilaterally GI/Abdomen: soft, NTND, good bowel sounds, no guarding or rebound /Bladder: no suprapubic tenderness, no CVA or paraspinal tenderness Extermity/Skin: no c/c/e, no obvious rash MSK: FROM x 4 Neuro: CN 2-12 grossly intact, no new focal deficits Psych: calm - Constitutional Vitals: Temp Pulse Resp BP Pulse Ox 98.2 F 59 L 16 115/64 100 09/02/19 05:26 09/02/19 05:26 09/02/19 05:26 09/02/19 05:26 09/02/19 05:26 Plan Activity: no driving until cleared by PCP, other (no strenous activity unless cleared by PCP) Diet: regular Follow up with: KALA ELMORE MD [Staff Physician] - 7 Days HIREN MIRELES MD [Staff Physician] - 7 Days Prescriptions: Tamsulosin [Flomax] 0.4 mg PO QHS #30 capsule amLODIPine 5 mg PO DAILY #30 tab Phenytoin [Dilantin] 100 mg PO BID #60 capsule levETIRAcetam [Keppra TAB] 500 mg PO BID #60 tablet lamoTRIgine [LaMICtal] 200 mg PO BID 90 Days #60 tablet Lacosamide [Vimpat] 150 mg PO BID #60 tablet
[2019-09-02] MEDS: lamoTRIgine 100 MG TAB PO SCH (10:44)
[2019-09-02] MEDS: LACOSAMIDE 50 MG TAB PO SCH (10:44)
[2019-09-02] MEDS: levETIRAcetam 500 MG TAB PO SCH (10:44)
[2019-09-02] MEDS: PHENYTOIN 100 MG CAPSULE.ER PO SCH (10:44)
[2019-09-02] MEDS: QUEtiapine 25 MG TAB PO SCH (10:45)
[2019-09-02] MEDS: amLODIPine 5 MG TAB PO SCH (10:47)
[2019-09-02 13:13] VITALS: BP 117/59
== END 2019-09-02 14:27 | disposition home or self-care (01) ==
LOC: ED 05:46 → 3A 11:37
PROVIDERS: ADMIT Internal Medicine; ATTEND Internal Medicine
DX: G40.909 Epilepsy, unspecified, not intractable, without status epilepticus (principal); I10 Essential (primary) hypertension; Z91.14 Patient's other noncompliance with medication regimen; F17.200 Nicotine dependence, unspecified, uncomplicated; G93.40 Encephalopathy, unspecified
CPT/HCPCS: 36415; 70450; 80053; 80177; 80185; 80307; 81001; 82140; 82550; 82962; 84484; 85027; 93005; 93010; 96365; 96375; 99284; G0378; J1165; J1953; 80320; G0480

== ENCOUNTER 2019-10-31 17:24 | Emergency (ER) | payer MEDICARE ==
[2019-10-31] MEDS ORDERED: LORazepam 2 MG/ML VIAL ONE (18:15)
[2019-10-31] MEDS ORDERED: LORazepam 2 MG/ML VIAL IV ONE (18:18)
--- NOTE | 2019-10-31 18:24 | Emergency Department Report ---
ED Seizure HPI - General Stated Complaint: SEIZURES Time Seen by Provider: 10/31/19 18:06 Source: EMS Limitations: Altered Mental Status - History of Present Illness Initial Comments: Patient is a 59-year-old male with a known past medical history of seizures. Patient actively seizing. Patient has had multiple seizures today. Per EMS patient had 6 seizures. Patient has been out of his seizure medications for 2 months. EMS denies head injury. EMS states that the patient was alert and oriented prior to having the seizure. MD Complaint: seizure - Related Data Home Medications Medication Instructions Recorded Confirmed Last Taken QUEtiapine [SEROquel] 25 mg PO BID 05/31/17 09/24/17 05/30/17 Previous Rx's Medication Instructions Recorded Last Taken Type Acetaminophen [Acetaminophen TAB] 1 tab PO Q4H PRN #15 tablet 09/02/19 Unknown Rx Lacosamide [Vimpat] 150 mg PO BID #60 tablet 09/02/19 Unknown Rx Phenytoin [Dilantin] 100 mg PO BID #60 capsule 09/02/19 Unknown Rx Tamsulosin [Flomax] 0.4 mg PO QHS #30 capsule 09/02/19 Unknown Rx amLODIPine 5 mg PO DAILY #30 tab 09/02/19 Unknown Rx lamoTRIgine [LaMICtal] 200 mg PO BID 90 Days #60 tablet 09/02/19 Unknown Rx levETIRAcetam [Keppra TAB] 500 mg PO BID #30 tablet 10/31/19 Unknown Rx Allergies Allergy/AdvReac Type Severity Reaction Status Date / Time No Known Allergies Allergy Verified 10/31/19 19:15 ED Review of Systems ROS: Stated complaint: SEIZURES Other details as noted in HPI Comment: Unobtainable due to pts medical conditions ED Past Medical Hx - Past Medical History Previous Medical History?: Yes Hx Hypertension: Yes Hx Diabetes: No Hx Seizures: Yes Hx COPD: No - Surgical History Past Surgical History?: Yes Additional Surgical History: cerebral shunt - Family History Family history: no significant - Social History Smoking Status: Current Every Day Smoker Substance Use Type: None - Medications Home Medications: Home Medications Medication Instructions Recorded Confirmed Last Taken Type QUEtiapine [SEROquel] 25 mg PO BID 05/31/17 09/24/17 05/30/17 History Acetaminophen [Acetaminophen TAB] 1 tab PO Q4H PRN #15 tablet 09/02/19 Unknown Rx Lacosamide [Vimpat] 150 mg PO BID #60 tablet 09/02/19 Unknown Rx Phenytoin [Dilantin] 100 mg PO BID #60 capsule 09/02/19 Unknown Rx Tamsulosin [Flomax] 0.4 mg PO QHS #30 capsule 09/02/19 Unknown Rx amLODIPine 5 mg PO DAILY #30 tab 09/02/19 Unknown Rx lamoTRIgine [LaMICtal] 200 mg PO BID 90 Days #60 tablet 09/02/19 Unknown Rx levETIRAcetam [Keppra TAB] 500 mg PO BID #30 tablet 10/31/19 Unknown Rx ED Physical Exam - General Limitations: Altered Mental Status General appearance: postictal - Head Head exam: Present: atraumatic, normocephalic - Eye Eye exam: Present: normal appearance, PERRL Pupils: Present: normal accommodation - ENT ENT exam: Present: mucous membranes moist - Neck Neck exam: Present: normal inspection - Respiratory Respiratory exam: Present: normal lung sounds bilaterally. Absent: respiratory distress, wheezes - Cardiovascular Cardiovascular Exam: Present: regular rate, normal rhythm. Absent: systolic murmur, diastolic murmur, rubs, gallop - GI/Abdominal GI/Abdominal exam: Present: soft, normal bowel sounds - Rectal Rectal exam: Present: deferred - Extremities Exam Extremities exam: Present: normal inspection, full ROM - Back Exam Back exam: Present: normal inspection - Neurological Exam Neurological exam: Present: altered - Skin Skin exam: Present: warm, dry, intact, normal color. Absent: rash ED Course Vital Signs 10/31/19 10/31/19 10/31/19 19:14 19:16 19:17 Temperature 98.5 F Pulse Rate 116 H 93 H 94 H Respiratory 19 18 20 Rate Blood Pressure Blood Pressure 116/79 [Left] O2 Sat by Pulse 96 95 Oximetry 10/31/19 10/31/19 10/31/19 19:30 19:45 20:00 Temperature Pulse Rate 89 89 85 Respiratory 17 28 H 30 H Rate Blood Pressure 132/77 148/73 128/66 Blood Pressure [Left] O2 Sat by Pulse 92 96 92 Oximetry 10/31/19 10/31/19 10/31/19 20:40 20:45 21:00 Temperature Pulse Rate 91 H 78 81 Respiratory 13 17 18 Rate Blood Pressure 128/66 142/75 153/81 Blood Pressure [Left] O2 Sat by Pulse 92 91 Oximetry 10/31/19 10/31/19 10/31/19 21:15 21:30 21:45 Temperature Pulse Rate 87 86 73 Respiratory 23 18 19 Rate Blood Pressure 131/58 123/64 126/53 Blood Pressure [Left] O2 Sat by Pulse 93 93 94 Oximetry 11/01/19 01:06 Temperature 98.5 F Pulse Rate 73 Respiratory 19 Rate Blood Pressure Blood Pressure 116/79 [Left] O2 Sat by Pulse 94 Oximetry - Reevaluation(s) Reevaluation #1: pt actively szing. pt will be given ativan. 10/31/19 18:02 Reevaluation #2: Patient is still sleeping. Patient oriented times one 10/31/19 19:31 Reevaluation #3: Patient still sleeping but easily arousable. Patient is alert and oriented 3. 10/31/19 21:32 Reevaluation #4: Patient is awake alert and oriented. Patient states he is ready to go home. Patient given discharge instructions. Patient voiced understanding of discharge instructions. I discussed all results with patient. 10/31/19 23:41 ED Medical Decision Making - Lab Data Result diagrams: 10/31/19 19:12 10/31/19 19:12 - Radiology Data Radiology results: report reviewed NONENHANCED CT SCAN OF THE HEAD: INDICATION / CLINICAL INFORMATION: 59 years Male; multiple sz. TECHNIQUE: Routine CT head without contrast. All CT scans at this location are performed using CT dose reduction for ALARA by means of automated exposure control. COMPARISON: CT scan of the brain from 09/01/2019 and 09/24/2017. FINDINGS: BRAIN / INTRACRANIAL CONTENTS: CT findings remain unchanged. In the lateral gang worker images, there is no change since 09/24/2017. Right temporal craniotomy changes are seen. Encephalomalacia is seen in the right temporal lobe. This remains unchanged. Craniotomy changes are also seen in the left parietal lobe. As seen in the last CT scan, there are 2 metallic leads entering cranium. One of these is extending near the foramina of Luis. Second one is extending up to the level of the left medial temporal lobe. Significant volume loss is seen in the cerebellar hemispheres. Mild degree of cortical involution is seen. Punctate areas of intracranial calcifications seen CRANIOCERVICAL JUNCTION: No significant abnormality. ORBITS: No significant abnormality of visualized orbits. SINUSES / MASTOIDS: No significant abnormality of the visualized paranasal sinuses or mastoid air cells. ADDITIONAL FINDINGS: None. IMPRESSION: CT findings remain unchanged Postsurgical changes in both cerebral hemispheres 2 metallic wires side extending intracranially; these remain unchanged since 09/01/2019. - Medical Decision Making Patient is a 59-year-old male that presents emergency room with multiple seizures and noncompliance with seizure medications. Patient had a CT which is found no acute findings. Patient's labs unremarkable. Patient given Ativan for seizure activity and patient given Keppra. Patient denies any further seizure activity in the ER. Patient was monitored for multiple hours. Patient upon discharge was awake, alert and oriented. Patient stable for discharge. Patient discharged home. - Differential Diagnosis seizure. Status epilepticus. Noncompliance. Critical Care Time: Yes Critical care time in (mins) excluding proc time.: 35 Critical care attestation.: If time is entered above; I have spent that time in minutes in the direct care of this critically ill patient, excluding procedure time. Critical Care Time: 35 minutes ED Disposition Clinical Impression: Seizure, Noncompliance with medication regimen Disposition: DC-01 TO HOME OR SELFCARE Is pt being admited?: No Does the pt Need Aspirin: No Condition: Stable Instructions: Epilepsy (ED), Recurrent Seizures Adult (ED) Additional Instructions: Patient to follow up with primary care in 2-3 days. Patient to return to ER if condition worsens. Patient to rest. Patient to increase water. Patient to take seizure medications as directed. Patient to follow-up with a neurologist in 2-3 days. Prescriptions: levETIRAcetam [Keppra TAB] 500 mg PO BID #30 tablet Referrals: SERENA VU MD [Referring] - 2-3 Days Time of Disposition: 23:43
[2019-10-31] MEDS ORDERED: levETIRAcetam 1000 MG/NS 0.75% 1,000 MG/100 ML BAG IV ONE (18:59)
[2019-10-31 19:51] LABS: Hematocrit 42.7 % (35.5-45.6); Hemoglobin 14.6 gm/dl (11.8-15.2); Mean Corpuscular HGB Conc 34 % (32-34); Mean Corpuscular Volume 83 fl (84-94); Platelet Count 267 K/mm3 (140-440); Red Blood Count 5.12 M/mm3 (3.65-5.03); Red Cell Distribution Width 15.5 % (13.2-15.2)
[2019-10-31 20:21] LABS: Alanine Aminotransferase 26 units/L (7-56); Albumin 4.4 g/dL (3.9-5); BUN/Creatinine Ratio 8; Blood Urea Nitrogen 9 mg/dL (9-20); Calcium 9.7 mg/dL (8.4-10.2); Hemolysis Index 2
--- NOTE | 2019-10-31 21:15 | Cat Scan Report ---
NONENHANCED CT SCAN OF THE HEAD: INDICATION / CLINICAL INFORMATION: 59 years Male; multiple sz. TECHNIQUE: Routine CT head without contrast. All CT scans at this location are performed using CT dos e reduction for ALARA by means of automated exposure control. COMPARISON: CT scan of the brain from 09/01/2019 and 09/24/2017. FINDINGS: BRAIN / INTRACRANIAL CONTENTS: CT findings remain unchanged. In the lateral senior quality assurance analyst images, there is no change since 09/24/2017. Right temporal craniotomy changes are seen. Encephalomalacia is seen in the right temporal lobe. This remains unchanged. Craniotomy changes are also seen in the left parietal lobe. As seen in the last CT scan, there are 2 metallic leads entering cranium. One of these is extending n ear the foramina of Luis. Second one is extending up to the level of the left medial temporal lobe. Significant volume loss is seen in the cerebellar hemispheres. Mild degree of cortical involution is seen. Punctate areas of intracranial calcifications seen CRANIOCERVICAL JUNCTION: No significant abnormality. ORBITS: No significant abnormality of visualized orbits. SINUSES / MASTOIDS: No significant abnormality of the visualized paranasal sinuses or mastoid air sasha ls. ADDITIONAL FINDINGS: None. IMPRESSION: CT findings remain unchanged Postsurgical changes in both cerebral hemispheres 2 metallic wires side extending intracranially; these remain unchanged since 09/01/2019. Signer Name: Mario Low MD Signed: 10/31/2019 9:11 PM Workstation Name: [id number]
[2019-11-01 01:07] VITALS: BP 116/79
== END 2019-11-01 01:06 | disposition home or self-care (01) ==
LOC: ED 17:24
DX: G40.909 Epilepsy, unspecified, not intractable, without status epilepticus (principal); Z91.14 Patient's other noncompliance with medication regimen; I10 Essential (primary) hypertension; F17.200 Nicotine dependence, unspecified, uncomplicated; Z98.890 Other specified postprocedural states; Z79.899 Other long term (current) drug therapy
CPT/HCPCS: 36415; 70450; 80053; 85027; 96374; 96375; 99284; J1953; J2060

== ENCOUNTER 2019-11-02 00:16 | Emergency (ER) | payer MEDICARE ==
[2019-11-02 00:28] VITALS: BP 143/68
[2019-11-02] MEDS ORDERED: levETIRAcetam 500 MG TAB PO ONE (01:42)
--- NOTE | 2019-11-02 04:51 | Emergency Department Report ---
ED Seizure HPI - General Chief Complaint: Seizure Stated Complaint: POSS SEIZURES Time Seen by Provider: 11/02/19 03:30 Source: patient, family Mode of arrival: Ambulatory Limitations: No Limitations - History of Present Illness Initial Comments: 59-year-old male with a past medical history seizure disorder, hypertension, cerebral shunt presents to the hospital procedures. Patient was here on October 31 for seizures and medication noncompliance. He was discharged on Keppra 500 mg twice a day. Patient has not yet filled his prescription. He had another seizure yesterday. He presents asymptomatic. Patient denies any pain currently. - Related Data Home Medications Medication Instructions Recorded Confirmed Last Taken QUEtiapine [SEROquel] 25 mg PO BID 05/31/17 09/24/17 05/30/17 Previous Rx's Medication Instructions Recorded Last Taken Type Acetaminophen [Acetaminophen TAB] 1 tab PO Q4H PRN #15 tablet 09/02/19 Unknown Rx Lacosamide [Vimpat] 150 mg PO BID #60 tablet 09/02/19 Unknown Rx Phenytoin [Dilantin] 100 mg PO BID #60 capsule 09/02/19 Unknown Rx Tamsulosin [Flomax] 0.4 mg PO QHS #30 capsule 09/02/19 Unknown Rx amLODIPine 5 mg PO DAILY #30 tab 09/02/19 Unknown Rx lamoTRIgine [LaMICtal] 200 mg PO BID 90 Days #60 tablet 09/02/19 Unknown Rx levETIRAcetam [Keppra TAB] 500 mg PO BID #30 tablet 10/31/19 Unknown Rx Allergies Allergy/AdvReac Type Severity Reaction Status Date / Time No Known Allergies Allergy Verified 10/31/19 19:15 ED Review of Systems ROS: Stated complaint: POSS SEIZURES Other details as noted in HPI Comment: All other systems reviewed and negative ED Past Medical Hx - Past Medical History Previous Medical History?: Yes Hx Hypertension: Yes Hx Diabetes: No Hx Seizures: Yes Hx Psychiatric Treatment: Yes Hx COPD: No Additional medical history: BPH - Surgical History Past Surgical History?: Yes Hx Internal Defibrillator: Yes Additional Surgical History: cerebral shunt - Social History Smoking Status: Former Smoker Substance Use Type: None - Medications Home Medications: Home Medications Medication Instructions Recorded Confirmed Last Taken Type QUEtiapine [SEROquel] 25 mg PO BID 08/08/17 12/02/17 08/07/17 History Acetaminophen [Acetaminophen TAB] 1 tab PO Q4H PRN #15 tablet 09/02/19 Unknown Rx Lacosamide [Vimpat] 150 mg PO BID #60 tablet 09/02/19 Unknown Rx Phenytoin [Dilantin] 100 mg PO BID #60 capsule 09/02/19 Unknown Rx Tamsulosin [Flomax] 0.4 mg PO QHS #30 capsule 09/02/19 Unknown Rx amLODIPine 5 mg PO DAILY #30 tab 09/02/19 Unknown Rx lamoTRIgine [LaMICtal] 200 mg PO BID 90 Days #60 tablet 09/02/19 Unknown Rx levETIRAcetam [Keppra TAB] 500 mg PO BID #30 tablet 10/31/19 Unknown Rx ED Physical Exam - General Limitations: No Limitations - Other Other exam information: General: No limitations, patient is alert in no acute distress Head exam: Atraumatic, normocephalic Eyes exam: Normal appearance, pupils equal reactive to light, extraocular movements intact ENT: Moist mucous membrane Neck exam: Normal inspection, full range of motion, no meningismus nontender Respiratory exam: Clear to auscultation bilateral, no wheezes, rales, crackles Cardiovascular: Normal rate and rhythm, normal heart sounds Abdomen: Soft, nondistended, and nontender, with normal bowel sounds, no rebound, or guarding Extremity: Full range of motion normal inspection no deformity Back: Normal Inspection, full range of motion, no tenderness Neurologic: Alert, oriented x3, cranial nerves intact, no motor or sensory deficit, finger nose finger intact Psychiatric: normal affect, normal mood Skin: Warm, dry, intact ED Course Vital Signs 11/02/19 00:23 Temperature 98.3 F Pulse Rate 94 H Respiratory 18 Rate Blood Pressure 143/68 O2 Sat by Pulse 96 Oximetry ED Medical Decision Making - Medical Decision Making Seizure likely secondary to medication noncompliance pt given Keppra 1g PO in the ED without further seizure activity Encouraged to fill his prescription Recent labs from October 31 reviewed Patient will be discharged - Differential Diagnosis seizure, med noncompliance Critical Care Time: No Critical care attestation.: If time is entered above; I have spent that time in minutes in the direct care of this critically ill patient, excluding procedure time. ED Disposition Clinical Impression: Seizure, Noncompliance with medication regimen Disposition: TO HOME OR SELFCARE Is pt being admited?: No Does the pt Need Aspirin: No Condition: Stable Instructions: Recurrent Seizures Adult (ED) Additional Instructions: Take your seizure medication as prescribed. Follow up with you doctor or with the doctor provided. Return if symptoms worsen as indicated by your discharge instructions. Referrals: HIREN MIRELES MD [Staff Physician] - 3-5 Days (Neurologist) ADA MEDINA MD [Staff Physician] - 3-5 Days (Neurologist) Time of Disposition: 04:52
== END 2019-11-02 05:30 | disposition home or self-care (01) ==
LOC: ED 00:16
DX: G40.909 Epilepsy, unspecified, not intractable, without status epilepticus (principal); I10 Essential (primary) hypertension; Z98.890 Other specified postprocedural states; Z87.891 Personal history of nicotine dependence; Z79.899 Other long term (current) drug therapy; Z91.14 Patient's other noncompliance with medication regimen

== ENCOUNTER 2021-08-09 15:16 | Emergency (ER) | payer MEDICARE ==
--- NOTE | 2021-08-09 15:39 | Emergency Department Report ---
ED General Adult HPI - General Chief complaint: Neuro Symptoms/Deficit Stated complaint: GENERAL WEAKNESS/DOUBLE VISION Time Seen by Provider: 08/09/21 15:30 Source: patient, EMS Mode of arrival: Wheelchair Limitations: No Limitations - History of Present Illness Initial comments: Patient presented by ambulance secondary to weakness. [facility] at a [facility]. He is only been there for 2 days after being discharged from [facility]. He had been at [facility] with psychiatric issues and hypercalcemia. Patient was transported here for generalized weakness. There was some concern as to whether or not he needed a psychiatric evaluation again. They were not certain if the hypercalcemia was causing problems. Upon arrival, patient really does not have any specific complaint. He states he just does not feel well. There has been no cough or congestion. He has no vomiting or diarrhea. Patient denies fevers or chills. He does not have unilateral weakness. He is not suicidal or homicidal. At one point, he did complain of diplopia. He states that this was horizontal. He did not have weakness in extremities. There was no head trauma or headache. - Related Data Home Medications Medication Instructions Recorded Confirmed Last Taken QUEtiapine [SEROquel] 25 mg PO BID 05/31/17 09/24/17 05/30/17 Previous Rx's Medication Instructions Recorded Last Taken Type Acetaminophen [Acetaminophen TAB] 1 tab PO Q4H PRN #15 tablet 09/02/19 Unknown Rx Lacosamide [Vimpat] 150 mg PO BID #60 tablet 09/02/19 Unknown Rx Phenytoin [Dilantin] 100 mg PO BID #60 capsule 09/02/19 Unknown Rx Tamsulosin [Flomax] 0.4 mg PO QHS #30 capsule 09/02/19 Unknown Rx amLODIPine 5 mg PO DAILY #30 tab 09/02/19 Unknown Rx lamoTRIgine [LaMICtal] 200 mg PO BID 90 Days #60 tablet 09/02/19 Unknown Rx levETIRAcetam [Keppra TAB] 500 mg PO BID #30 tablet 10/31/19 Unknown Rx Allergies Allergy/AdvReac Type Severity Reaction Status Date / Time No Known Allergies Allergy Verified 10/31/19 19:15 ED Review of Systems ROS: Stated complaint: GENERAL WEAKNESS/DOUBLE VISION Other details as noted in HPI Comment: All other systems reviewed and negative Constitutional: denies: fever Eyes: as per HPI ENT: denies: throat pain Respiratory: denies: cough Cardiovascular: denies: chest pain Endocrine: denies: unexplained weight loss Gastrointestinal: denies: abdominal pain Genitourinary: denies: dysuria Musculoskeletal: denies: back pain Skin: denies: rash Neurological: as per HPI Hematological/Lymphatic: denies: easy bruising ED Past Medical Hx - Past Medical History Previous Medical History?: Yes Hx Hypertension: Yes Hx Diabetes: No Hx Seizures: Yes Hx Psychiatric Treatment: Yes Hx COPD: No Additional medical history: BPH - Surgical History Past Surgical History?: Yes Hx Internal Defibrillator: Yes Additional Surgical History: cerebral shunt - Family History Family history: hypertension - Social History Smoking Status: Former Smoker Substance Use Type: None - Medications Home Medications: Home Medications Medication Instructions Recorded Confirmed Last Taken Type QUEtiapine [SEROquel] 25 mg PO BID 05/31/17 09/24/17 05/30/17 History Acetaminophen [Acetaminophen TAB] 1 tab PO Q4H PRN #15 tablet 09/02/19 Unknown Rx Lacosamide [Vimpat] 150 mg PO BID #60 tablet 09/02/19 Unknown Rx Phenytoin [Dilantin] 100 mg PO BID #60 capsule 09/02/19 Unknown Rx Tamsulosin [Flomax] 0.4 mg PO QHS #30 capsule 09/02/19 Unknown Rx amLODIPine 5 mg PO DAILY #30 tab 09/02/19 Unknown Rx lamoTRIgine [LaMICtal] 200 mg PO BID 90 Days #60 tablet 09/02/19 Unknown Rx levETIRAcetam [Keppra TAB] 500 mg PO BID #30 tablet 10/31/19 Unknown Rx ED Physical Exam - General Limitations: No Limitations, Other ( Pulse ox was noted and normal) General appearance: alert, in no apparent distress - Head Head exam: Present: atraumatic, normocephalic, normal inspection - Eye Eye exam: Present: normal appearance, PERRL, EOMI. Absent: scleral icterus, nystagmus - ENT ENT exam: Present: normal exam, normal orophraynx, normal external ear exam - Neck Neck exam: Present: normal inspection. Absent: meningismus - Respiratory Respiratory exam: Present: normal lung sounds bilaterally. Absent: respiratory distress - Cardiovascular Cardiovascular Exam: Present: regular rate, normal rhythm - GI/Abdominal GI/Abdominal exam: Present: soft. Absent: distended, tenderness - Extremities Exam Extremities exam: Present: normal capillary refill. Absent: pedal edema - Back Exam Back exam: Absent: CVA tenderness (R), CVA tenderness (L) - Neurological Exam Neurological exam: Present: alert, oriented X3, CN II-XII intact, reflexes normal. Absent: motor sensory deficit - Psychiatric Psychiatric exam: Present: normal affect, normal mood - Skin Skin exam: Present: warm, dry ED Course Vital Signs 08/09/21 08/09/21 16:36 16:37 Pulse Rate 51 L Respiratory 16 Rate Blood Pressure 151/72 [Left] O2 Sat by Pulse 98 98 Oximetry - Reevaluation(s) Reevaluation #1: 08/09/21 15:39 EMS was met upon arrival. IV and labs were ordered. Old records requested and reviewed. Reevaluation #2: 08/09/21 17:18 labs of been noted. Patient is ambulatory. There is no neurologic symptom or deficit. He was discharged. ED Medical Decision Making - Lab Data Result diagrams: 08/09/21 15:50 08/09/21 15:50 Rhythm strip: Normal sinus rhythm without ectopy per monitor observe 10 sec onds. - Medical Decision Making Patient presents with possible diplopia. This was only involving the right eye according to the patient. He has no change in extraocular movement. He does not have any type of cranial nerve palsy noticeable. There is no other focal neurologic finding. NIH score is zero. There is no indication for CT or further stroke work-up. He does not have any headache or neurologic deficit that would suggest space-occupying lesion. Patient does not have any electrolyte derangement. There is no hypercalcemia or other metabolic pathology. He was treated symptomatically and discharged. He felt comfortable going home. Critical Care Time: No Critical care attestation.: If time is entered above; I have spent that time in minutes in the direct care of this critically ill patient, excluding procedure time. ED Disposition Clinical Impression: Diplopia, Weakness Disposition: 01 HOME / SELF CARE / HOMELESS Is pt being admited?: No Condition: Stable Instructions: Fatigue, Weakness, [id number], Visual Disturbances Additional Instructions: Follow-up with your regular doctor. Follow-up with the referral physician if you do not have a regular doctor. Continue home medication. Return for problems. Referrals: PRIMARY CARE, [Referring] - 3-5 Days CASSANDRA RICKS MD [Staff Physician] - 3-5 Days
[2021-08-09 16:06] LABS: Hematocrit 41.9 % (35.5-45.6); Mean Corpuscular HGB Conc 33 % (32-34); Mean Corpuscular Volume 85 fl (84-94); Platelet Count 271 K/mm3 (140-440); Red Blood Count 4.92 M/mm3 (3.65-5.03); Red Cell Distribution Width 16.1 % (13.2-15.2)
[2021-08-09 16:24] LABS: BUN/Creatinine Ratio 12; Blood Urea Nitrogen 14 mg/dL (9-20); Calcium 9.4 mg/dL (8.4-10.2); Hemolysis Index 5
[2021-08-09 16:37] VITALS: BP 151/72
== END 2021-08-09 17:45 | disposition home or self-care (01) ==
LOC: ED 15:16
DX: H53.2 Diplopia (principal); R53.1 Weakness; I10 Essential (primary) hypertension; N40.0 Benign prostatic hyperplasia without lower urinary tract symptoms; Z98.890 Other specified postprocedural states; Z87.891 Personal history of nicotine dependence
CPT/HCPCS: 36415; 80048; 83735; 85027; 99283

== ENCOUNTER 2021-10-06 14:23 | Emergency (ER) | payer MEDICARE ==
[2021-10-06 14:28] VITALS: BP 154/82
--- NOTE | 2021-10-06 15:40 | Emergency Department Report ---
ED Medical Clearance HPI - General Chief complaint: Medical Clearance Stated complaint: OUT OF SEIZURE MEDS Time Seen by Provider: 10/06/21 14:52 Source: EMS Mode of arrival: Ambulatory - History of Present Illness Initial comments: 61-year-old -[place] male presents to the emergency room requesting a refill on his seizure medicine. Patient states he has been out of it for 2 days. Patient states he was in senior care for 1 month and he was getting sporadically. He denies any recent seizure activity. Patient states that he takes Lamictal Keppra and Vigmat. Onset/Timin -: days(s) Home medications: Home Medications Medication Instructions Recorded Confirmed Last Taken QUEtiapine [SEROquel] 25 mg PO BID 05/31/17 09/24/17 05/30/17 Previous Rx's Medication Instructions Recorded Last Taken Type Acetaminophen [Acetaminophen TAB] 1 tab PO Q4H PRN #15 tablet 09/02/19 Unknown Rx Lacosamide [Vimpat] 150 mg PO BID #60 tablet 09/02/19 Unknown Rx Phenytoin [Dilantin] 100 mg PO BID #60 capsule 09/02/19 Unknown Rx Tamsulosin [Flomax] 0.4 mg PO QHS #30 capsule 09/02/19 Unknown Rx amLODIPine 5 mg PO DAILY #30 tab 09/02/19 Unknown Rx levETIRAcetam [Keppra TAB] 500 mg PO BID #30 tablet 10/31/19 Unknown Rx Lacosamide [Vimpat] 200 mg PO BID #60 tablet 10/06/21 Unknown Rx lamoTRIgine [LaMICtal] 200 mg PO BID 90 Days #60 tablet 10/06/21 Unknown Rx levETIRAcetam [Keppra TAB] 1,000 mg PO BID #60 tab 10/06/21 Unknown Rx Allergies/Adverse reactions: Allergies Allergy/AdvReac Type Severity Reaction Status Date / Time No Known Allergies Allergy Verified 10/31/19 19:15 ED Review of Systems ROS: Stated complaint: OUT OF SEIZURE MEDS Other details as noted in HPI ED Past Medical Hx - Past Medical History Hx Hypertension: Yes Hx Diabetes: No Hx Seizures: Yes Hx Psychiatric Treatment: Yes Hx COPD: No Additional medical history: BPH - Surgical History Hx Internal Defibrillator: Yes Additional Surgical History: cerebral shunt - Social History Smoking Status: Former Smoker Substance Use Type: None - Medications Home Medications: Home Medications Medication Instructions Recorded Confirmed Last Taken Type QUEtiapine [SEROquel] 25 mg PO BID 05/31/17 09/24/17 05/30/17 History Acetaminophen [Acetaminophen TAB] 1 tab PO Q4H PRN #15 tablet 09/02/19 Unknown Rx Lacosamide [Vimpat] 150 mg PO BID #60 tablet 09/02/19 Unknown Rx Phenytoin [Dilantin] 100 mg PO BID #60 capsule 09/02/19 Unknown Rx Tamsulosin [Flomax] 0.4 mg PO QHS #30 capsule 09/02/19 Unknown Rx amLODIPine 5 mg PO DAILY #30 tab 09/02/19 Unknown Rx levETIRAcetam [Keppra TAB] 500 mg PO BID #30 tablet 10/31/19 Unknown Rx Lacosamide [Vimpat] 200 mg PO BID #60 tablet 10/06/21 Unknown Rx lamoTRIgine [LaMICtal] 200 mg PO BID 90 Days #60 tablet 10/06/21 Unknown Rx levETIRAcetam [Keppra TAB] 1,000 mg PO BID #60 tab 10/06/21 Unknown Rx ED Physical Exam - General Limitations: No Limitations General appearance: alert, in no apparent distress - Head Head exam: Present: atraumatic, normocephalic - Eye Eye exam: Present: normal appearance - ENT ENT exam: Present: mucous membranes moist - Neck Neck exam: Present: normal inspection - Respiratory Respiratory exam: Present: normal lung sounds bilaterally. Absent: respiratory distress - Cardiovascular Cardiovascular Exam: Present: regular rate, normal rhythm. Absent: systolic murmur, diastolic murmur, rubs, gallop - GI/Abdominal GI/Abdominal exam: Present: soft, normal bowel sounds - Rectal Rectal exam: Present: deferred - Extremities Exam Extremities exam: Present: normal inspection - Back Exam Back exam: Present: normal inspection - Neurological Exam Neurological exam: Present: alert, oriented X3 - Psychiatric Psychiatric exam: Present: normal affect, normal mood - Skin Skin exam: Present: warm, dry, intact, normal color. Absent: rash ED Course Vital Signs 10/06/21 14:27 Temperature 97.9 F Pulse Rate 102 H Respiratory 16 Rate Blood Pressure 154/82 [Right] O2 Sat by Pulse 98 Oximetry ED Disposition Clinical Impression: Seizure, Noncompliance with medication regimen Disposition: HOME / SELF CARE / HOMELESS Is pt being admited?: No Does the pt Need Aspirin: No Condition: Stable Instructions: Epilepsy, [id number] Additional Instructions: Please take medication as prescribed. Is very important you follow-up with your primary care provider for refills. Prescriptions: levETIRAcetam [Keppra TAB] 1,000 mg PO BID #60 tab lamoTRIgine [LaMICtal] 200 mg PO BID 90 Days #60 tablet Lacosamide [Vimpat] 200 mg PO BID #60 tablet Referrals: PRIMARY MD MARINO [Primary Care Provider] - 3-5 Days KALA ELMORE MD [Staff Physician] - 3-5 Days Time of Disposition: 16:12
== END 2021-10-06 16:19 | disposition home or self-care (01) ==
LOC: ED 14:23
DX: G40.919 Epilepsy, unspecified, intractable, without status epilepticus (principal); Z91.14 Patient's other noncompliance with medication regimen; I10 Essential (primary) hypertension
CPT/HCPCS: 99283